=== PATIENT | male | born 1985 | race Caucasian/White ===

== ENCOUNTER 2018-10-14 11:35 | Inpatient (IN) | payer MEDICAID ==
[~2018-10-14] VITALS: Ht 175.3 cm; Wt 55.4 kg
[2018-10-14 11:45] VITALS: BP 144/88
--- NOTE | 2018-10-14 12:02 | NUR ---
ED Nurse Note: Pt LENKA from the street due to ETOH, reported that he has been drinking "Vodka x 1 couple of days straight". Pt appears confused at times, slurred speech but still able to answer questions from staffs. HR 130-140, ERMD aware. No active vomiting noted. other VSS. Will cont to monitor.
--- NOTE | 2018-10-14 12:02 | NUR ---
ED Nurse Note: Seizure precaution applied.
[2018-10-14] MEDS ORDERED: LORazepam Inj 2mg/ml 1ml IV ONE (12:15)
[2018-10-14] MEDS ORDERED: chlordiazePOXIDE 25mg Cap ORAL ONE ×2 (12:15→15:45)
[2018-10-14] MEDS ORDERED: Thiamine HCl 100 MG in D5W 55 ML IV ONE (12:15)
--- NOTE | 2018-10-14 12:27 | NUR ---
ED Nurse Note: Pt down to CT for imaging.
[2018-10-14 12:36] LABS: HEMATOCRIT 46.3 % (42.0-52.0); HEMOGLOBIN 15.5 G/DL (14.2-18.0); MEAN CORPUSCULAR VOLUME 91 FL (80-99); PLATELET COUNT 86 K/UL (150-450); RED BLOOD COUNT 5.08 M/UL (4.70-6.10); RED CELL DISTRIBUTION WIDTH 11.3 % (11.6-14.8); WHITE BLOOD COUNT 6.9 K/UL (4.8-10.8)
[2018-10-14 12:45] LABS: PHOSPHORUS 4.5 MG/DL (2.5-4.9)
--- NOTE | 2018-10-14 12:51 | Diagnostic Imaging Report ---
Indication: Shortness of breath Technique: One view of the chest Comparison: none Findings: Lungs and pleural spaces are clear. Heart size is normal Impression: No acute process
--- NOTE | 2018-10-14 12:51 | Diagnostic Imaging Report ---
Indications: Altered mental status Technique: Spiral acquisitions obtained through the brain. Angled axial and coronal 5 x 5 mm slices were reconstructed. Total dose length product 1523.79 mGycm. CTDI vol(s) 70.38 mGy. Dose reduction achieved using automated exposure control Comparison: None. Findings: No acute intracranial hemorrhage or edema, mass effect, nor midline shift. Normal ely-white differentiation. Normal-sized ventricles and extra axial CSF spaces. Visualized orbits and sinuses are unremarkable. The calvarium is intact. Impression: Negative The CT scanner at [facility] is accredited by the [employer] and the scans are performed using protocols designed to limit radiation exposure to as low as reasonably achievable to attain images of sufficient resolution adequate for diagnostic evaluation.
--- NOTE | 2018-10-14 12:59 | Emergency Room Report ---
History of Present Illness General Chief Complaint: Altered Level of Consciousness Source: Patient, EMS Present Illness HPI 33-year-old male past motor history of alcohol abuse presents with altered mental status secondary to drinking, patient states he drank a lot of alcohol last night, history is limited secondary to patient's alcohol intoxication. Unable to obtain a proper review of systems, patient attempts to get out of bed , is not answering questions appropriately, has slurred speech Allergies: Coded Allergies: PENICILLINS (Verified Allergy, Unknown, 10/14/18) Patient History Limited by: other - Currently intoxicated Past Medical History: see triage record Past Surgical History: unable to obtain Pertinent Family History: unable to obtain Reviewed Nursing Documentation: PMH: Agreed; PSxH: Agreed Nursing Documentation-PMH Past Medical History: No History, Except For History Of Psychiatric Problem: Yes - etoh abuse Review of Systems All Other Systems: limited - patient intoxicated Physical Exam Vital Signs Date Time Temp Pulse Resp B/P (MAP) Pulse Ox O2 Delivery O2 Flow Rate FiO2 10/14/18 11:28 98.8 130 20 155/95 (115) 99 Room Air Sp02 EP Interpretation: reviewed, normal General Appearance: well appearing, no apparent distress, alert, other - intoxicated Head: normocephalic, atraumatic Eyes: bilateral eye PERRL, bilateral eye EOMI ENT: uvula midline, moist mucus membranes Neck: supple, thyroid normal, supple/symm/no masses Respiratory: lungs clear, no respiratory distress, no retraction, no accessory muscle use Cardiovascular #1: normal peripheral pulses, regular rate, rhythm, no edema, no gallop, no murmur Gastrointestinal: non tender, soft, no guarding, no rebound Musculoskeletal: normal inspection Neurologic: alert, other - slurred speech, oriented to self Psychiatric: mood/affect normal Skin: no rash, warm/dry Medical Decision Making Diagnostic Impression: Primary Impression: Acute alcohol intoxication ER Course Patient acutely intoxicated, patient given Ativan and Librium, will observe patient until he rajeev. Patient given fluids, thiamine, will continue to observe patient, reevaluation at 2:49 PM, patient improving Laboratory Tests Test 10/14/18 12:20 10/14/18 12:55 White Blood Count 6.9 K/UL (4.8-10.8) Red Blood Count 5.08 M/UL (4.70-6.10) Hemoglobin 15.5 G/DL (14.2-18.0) Hematocrit 46.3 % (42.0-52.0) Mean Corpuscular Volume 91 FL (80-99) Mean Corpuscular Hemoglobin 30.5 PG (27.0-31.0) Mean Corpuscular Hemoglobin Concent 33.5 G/DL (32.0-36.0) Red Cell Distribution Width 11.3 % (11.6-14.8) L Platelet Count 86 K/UL (150-450) L Mean Platelet Volume 6.0 FL (6.5-10.1) L Neutrophils (%) (Auto) % (45.0-75.0) Lymphocytes (%) (Auto) % (20.0-45.0) Monocytes (%) (Auto) % (1.0-10.0) Eosinophils (%) (Auto) % (0.0-3.0) Basophils (%) (Auto) % (0.0-2.0) Differential Total Cells Counted 100 Neutrophils % (Manual) 83 % (45-75) H Lymphocytes % (Manual) 10 % (20-45) L Monocytes % (Manual) 6 % (1-10) Eosinophils % (Manual) 0 % (0-3) Basophils % (Manual) 1 % (0-2) Band Neutrophils 0 % (0-8) Platelet Estimate Decreased L Platelet Morphology Normal Red Blood Cell Morphology Normal Sodium Level 139 MMOL/L (136-145) Potassium Level 3.7 MMOL/L (3.5-5.1) Chloride Level 95 MMOL/L (98-107) L Carbon Dioxide Level 21 MMOL/L (21-32) Anion Gap 23 mmol/L (5-15) H Blood Urea Nitrogen 15 mg/dL (7-18) Creatinine 0.8 MG/DL (0.55-1.30) Estimate Glomerular Filtration Rate > 60 mL/min (>60) Glucose Level 176 MG/DL (74-106) H Calcium Level 9.0 MG/DL (8.5-10.1) Phosphorus Level 4.5 MG/DL (2.5-4.9) Magnesium Level 1.9 MG/DL (1.8-2.4) Total Bilirubin 1.5 MG/DL (0.2-1.0) H Direct Bilirubin 0.4 MG/DL (0.0-0.3) H Aspartate Amino Transferase (AST) 218 U/L (15-37) H Alanine Aminotransferase (ALT) 140 U/L (12-78) H Alkaline Phosphatase 116 U/L (46-116) Total Creatine Kinase 711 U/L (26-308) H Total Protein 8.3 G/DL (6.4-8.2) H Albumin 4.7 G/DL (3.4-5.0) Globulin 3.6 g/dL Albumin/Globulin Ratio 1.3 (1.0-2.7) Salicylates Level 1.3 ug/mL (2.8-20) L Acetaminophen Level < 2 MCG/ML (10-30) L Serum Alcohol 473 mg/dL Urine Color Pale yellow Urine Appearance Slightly cloudy Urine pH 6 (4.5-8.0) Urine Specific [place] 1.010 (1.005-1.035) Urine Protein 2+ (NEGATIVE) H Urine Glucose (UA) Negative (NEGATIVE) Urine Ketones 3+ (NEGATIVE) H Urine Blood 5+ (NEGATIVE) H Urine Nitrite Negative (NEGATIVE) Urine Bilirubin Negative (NEGATIVE) Urine Urobilinogen Normal MG/DL (0.0-1.0) Urine Leukocyte Esterase Negative (NEGATIVE) Urine RBC 5-10 /HPF (0 - 0) H Urine WBC 0-2 /HPF (0 - 0) Urine Squamous Epithelial Cells Few /LPF (NONE/OCC) Urine Bacteria Occasional /HPF (NONE) Urine Granular Casts 0-2 /LPF (NONE) H Urine Fine Granular Casts 0-2 /LPF (NONE) H Urine Opiates Screen Negative (NEGATIVE) Urine Barbiturates Screen Negative (NEGATIVE) Phencyclidine (PCP) Screen Negative (NEGATIVE) Urine Amphetamines Screen Negative (NEGATIVE) Urine Benzodiazepines Screen Negative (NEGATIVE) Urine Cocaine Screen Negative (NEGATIVE) Urine Marijuana (THC) Screen Negative (NEGATIVE) Chest X-Ray Diagnostic Results Chest X-Ray Diagnostic Results : Chest X-Ray Ordered: Yes # of Views/Limited/Complete: 1 View Indication: Other - altered mental status EP Interpretation: Yes Interpretation: no consolidation, no effusion, no pneumothorax, no acute cardiopulmonary disease Impression: No acute disease Electronically Signed by: Yonathan Hinojosa MD CT/MRI/US Diagnostic Results CT/MRI/US Diagnostic Results : Impression Procedure: CT Head no Contrast Indications: Altered mental status Technique: Spiral acquisitions obtained through the brain. Angled axial and coronal 5 x 5 mm slices were reconstructed. Total dose length product 1523.79 mGycm. CTDI vol(s) 70.38 mGy. Dose reduction achieved using automated exposure control Comparison: None. Findings: No acute intracranial hemorrhage or edema, mass effect, nor midline shift. Normal ely-white differentiation. Normal-sized ventricles and extra axial CSF spaces. Visualized orbits and sinuses are unremarkable. The calvarium is intact. Impression: Negative The CT scanner at [facility] is accredited by the [employer] and the scans are performed using protocols designed to limit radiation exposure to as low as reasonably achievable to attain images of sufficient resolution adequate for diagnostic evaluation. Dictated By: Best Harry MD Electronically Signed By: Best Harry MD Signed Date/Time 10/14/18 1247 CC: Yonathan Hinojosa M.D. Last Vital Signs Date Time Temp Pulse Resp B/P (MAP) Pulse Ox O2 Delivery O2 Flow Rate FiO2 10/14/18 11:46 133 20 Room Air 10/14/18 11:45 98.8 144/88 99 Condition: Improved Signed Out To: Dr. Owusu Referrals: NOT CHOSEN IPA/,REFERRING (PCP) Yonathan Hinojosa M.D. Oct 14, 2018 12:59
[2018-10-14 13:15] LABS: APPEARANCE,URINE SLIGHTLY CLOUDY; BILIRUBIN, URINE NEGATIVE (NEGATIVE); COLOR,URINE PALE YELLOW; GLUCOSE, URINE (UA) NEGATIVE (NEGATIVE); KETONES,URINE 3+ (NEGATIVE); LEUKOCYTE ESTERASE ,URINE NEGATIVE (NEGATIVE); NITRITE,URINE NEGATIVE (NEGATIVE); PH,URINE 6 (4.5-8.0); PROTEIN,URINE 2+ (NEGATIVE); UROBILINOGEN,URINE NORMAL MG/DL (0.0-1.0)
[2018-10-14 13:17] LABS: ANION GAP 23 mmol/L (5-15); BLOOD UREA NITROGEN 15 mg/dL (7-18); CARBON DIOXIDE 21 MMOL/L (21-32); CHLORIDE 95 MMOL/L (98-107); CREATININE 0.8 MG/DL (0.55-1.30); POTASSIUM 3.7 MMOL/L (3.5-5.1); SODIUM 139 MMOL/L (136-145)
[2018-10-14 13:27] LABS: ALANINE AMINOTRANSFERASE 140 U/L (12-78); ALBUMIN 4.7 G/DL (3.4-5.0); ALBUMIN/GLOBULIN RATIO 1.3 (1.0-2.7); ALKALINE PHOSPHATASE 116 U/L (46-116); ASPARTATE AMINO TRANSFERASE 218 U/L (15-37); BILIRUBIN,TOTAL 1.5 MG/DL (0.2-1.0); CREATINE KINASE 711 U/L (26-308)
[2018-10-14 13:29] LABS: BILIRUBIN,DIRECT 0.4 MG/DL (0.0-0.3)
[2018-10-14 14:51] VITALS: BP 147/90
--- NOTE | 2018-10-14 15:21 | NUR ---
ED Nurse Note: received report from RN Mindy and assumed care, pt sinus tach on cardic monitor, vss, resp even and unlabored on RA, noted mild tremors and contusion on BLE, skin intact, iv intact and patent. safety precaution and sz precaution in place.
--- NOTE | 2018-10-14 15:21 | NUR ---
HAND-OFF: Report given to ROLDAN Zelaya.
[2018-10-14 15:30] VITALS: BP 145/105
--- NOTE | 2018-10-14 15:35 | NUR ---
ED Nurse Note: pt cleaned and changed into gown, extra warm blanket provided for comfort. pt reports nausea and anxiety, ERMD notified regarding pt's condition. pt AA&ox4, gcs=15. will cont monitor.
[2018-10-14 16:30] VITALS: BP 138/98
--- NOTE | 2018-10-14 17:00 | NUR ---
ED Nurse Note: pt sleeping at this time, safety and sz precaution in place, NSR on security monitor, vss, resp even and unlabored, will cont monitor. iv intact.
--- NOTE | 2018-10-14 18:24 | NUR ---
ED Nurse Note: PER RECEIVING RN STATEMENT, CANNOT TAKE REPORT AT THIS TIME BECAUSE SHE'S DOING ASSIGNMENT CALL BACK IN 10 MIN, NO BED IN THE ROOM, NO SITTER AVAILABLE, CHARGE NURSE NOTIFIED.
[2018-10-14 18:30] VITALS: BP 140/90
--- NOTE | 2018-10-14 18:47 | NUR ---
ED Nurse Note: REPORT GIVEN TO ROLDAN HENDRIX, PER ROLDAN HENDRIX, NO SITTER AVAILABLE, SEND PT AT [facility].
--- NOTE | 2018-10-14 19:00 | History and Physical ---
History of Present Illness General Date patient seen: Oct 14, 2018 Reason for Hospitalization: Altered Level of Consciousness Present Illness HPI 33 year old male with PMh of ETOH abuse, presents with complaints of shaking, nausea, abdominal pain and unsteady gait for 1 days. States he binge drinks often, last drink was this morning prior to admission. Pt states abdominla pain is similiar to previous pancreatitis symptoms. States when he stops drinking alcohol he usually feels very anxious and starts shaking. Pt denies substance abuse, nausea, vomiting, chest pain, headaches, blurry vision, urinary complaints, fevers, chills, or SOB Allergies: Coded Allergies: PENICILLINS (Verified Allergy, Unknown, 10/14/18) Medication History Scheduled Abacavir/Dolutegravir/Lamivudi (Triumeq 600-50-300 mg Tablet), 1 EACH PO DAILY, (Reported) Lamotrigine (Lamictal), 25 MG PO DAILY, (Reported) Propranolol HCl (Propranolol HCl), 20 MG PO TID, (Reported) Miscellaneous Medications [trimeq], (Reported) Patient History Healthcare decision maker Resuscitation status Advanced Directive on File Review of Systems ROS Narrative General ROS:~no weight loss or fever Psychological ROS:~no depression or mood changes, no memory loss Ophthalmic ROS:~no visual changes or eye irritation ENT ROS:~no nasal congestion, hearing loss, dizziness Allergy and Immunology ROS:~no allergic symptoms or urticaria Hematological and Lymphatic ROS:~no swollen glands, unusual bleeding or bruising Endocrine ROS:~no polyuria, polydipsia, weight changes, temperature intolerance Respiratory ROS:~no cough, shortness of breath, or wheezing Cardiovascular ROS:~no chest pain or dyspnea on exertion Gastrointestinal ROS:~no abdominal pain, change in bowel habits, or black or bloody stools~c/o constipation~ Musculoskeletal ROS:~no myalgias or arthralgias Neurological ROS:~no TIA or stroke symptoms Dermatological ROS:~no new or changing skin lesions, rashes or pruritis Physical Exam Last 24 Hour Vital Signs Date Time Temp Pulse Resp B/P (MAP) Pulse Ox O2 Delivery O2 Flow Rate FiO2 10/14/18 18:38 81 18 Room Air 10/14/18 18:30 97.5 81 19 140/90 99 Room Air 10/14/18 16:30 98.2 89 19 138/98 99 Room Air 10/14/18 15:30 98.2 105 19 145/105 99 Room Air 10/14/18 14:51 98.8 91 19 147/90 99 Room Air 10/14/18 11:46 133 20 Room Air 10/14/18 11:45 98.8 133 20 144/88 99 Room Air 10/14/18 11:28 98.8 130 20 155/95 (115) 99 Room Air Laboratory Tests Test 10/14/18 12:20 10/14/18 12:55 White Blood Count 6.9 K/UL (4.8-10.8) Red Blood Count 5.08 M/UL (4.70-6.10) Hemoglobin 15.5 G/DL (14.2-18.0) Hematocrit 46.3 % (42.0-52.0) Mean Corpuscular Volume 91 FL (80-99) Mean Corpuscular Hemoglobin 30.5 PG (27.0-31.0) Mean Corpuscular Hemoglobin Concent 33.5 G/DL (32.0-36.0) Red Cell Distribution Width 11.3 % (11.6-14.8) L Platelet Count 86 K/UL (150-450) L Mean Platelet Volume 6.0 FL (6.5-10.1) L Neutrophils (%) (Auto) % (45.0-75.0) Lymphocytes (%) (Auto) % (20.0-45.0) Monocytes (%) (Auto) % (1.0-10.0) Eosinophils (%) (Auto) % (0.0-3.0) Basophils (%) (Auto) % (0.0-2.0) Differential Total Cells Counted 100 Neutrophils % (Manual) 83 % (45-75) H Lymphocytes % (Manual) 10 % (20-45) L Monocytes % (Manual) 6 % (1-10) Eosinophils % (Manual) 0 % (0-3) Basophils % (Manual) 1 % (0-2) Band Neutrophils 0 % (0-8) Platelet Estimate Decreased L Platelet Morphology Normal Red Blood Cell Morphology Normal Sodium Level 139 MMOL/L (136-145) Potassium Level 3.7 MMOL/L (3.5-5.1) Chloride Level 95 MMOL/L (98-107) L Carbon Dioxide Level 21 MMOL/L (21-32) Anion Gap 23 mmol/L (5-15) H Blood Urea Nitrogen 15 mg/dL (7-18) Creatinine 0.8 MG/DL (0.55-1.30) Estimat Glomerular Filtration Rate > 60 mL/min (>60) Glucose Level 176 MG/DL (74-106) H Calcium Level 9.0 MG/DL (8.5-10.1) Phosphorus Level 4.5 MG/DL (2.5-4.9) Magnesium Level 1.9 MG/DL (1.8-2.4) Total Bilirubin 1.5 MG/DL (0.2-1.0) H Direct Bilirubin 0.4 MG/DL (0.0-0.3) H Aspartate Amino Transf (AST/SGOT) 218 U/L (15-37) H Alanine Aminotransferase (ALT/SGPT) 140 U/L (12-78) H Alkaline Phosphatase 116 U/L (46-116) Total Creatine Kinase 711 U/L (26-308) H Total Protein 8.3 G/DL (6.4-8.2) H Albumin 4.7 G/DL (3.4-5.0) Globulin 3.6 g/dL Albumin/Globulin Ratio 1.3 (1.0-2.7) Salicylates Level 1.3 ug/mL (2.8-20) L Acetaminophen Level < 2 MCG/ML (10-30) L Serum Alcohol 473 mg/dL Urine Color Pale yellow Urine Appearance Slightly cloudy Urine pH 6 (4.5-8.0) Urine Specific [place] 1.010 (1.005-1.035) Urine Protein 2+ (NEGATIVE) H Urine Glucose (UA) Negative (NEGATIVE) Urine Ketones 3+ (NEGATIVE) H Urine Blood 5+ (NEGATIVE) H Urine Nitrite Negative (NEGATIVE) Urine Bilirubin Negative (NEGATIVE) Urine Urobilinogen Normal MG/DL (0.0-1.0) Urine Leukocyte Esterase Negative (NEGATIVE) Urine RBC 5-10 /HPF (0 - 0) H Urine WBC 0-2 /HPF (0 - 0) Urine Squamous Epithelial Cells Few /LPF (NONE/OCC) Urine Bacteria Occasional /HPF (NONE) Urine Granular Casts 0-2 /LPF (NONE) H Urine Fine Granular Casts 0-2 /LPF (NONE) H Urine Opiates Screen Negative (NEGATIVE) Urine Barbiturates Screen Negative (NEGATIVE) Phencyclidine (PCP) Screen Negative (NEGATIVE) Urine Amphetamines Screen Negative (NEGATIVE) Urine Benzodiazepines Screen Negative (NEGATIVE) Urine Cocaine Screen Negative (NEGATIVE) Urine Marijuana (THC) Screen Negative (NEGATIVE) Height (Feet): 5 Height (Inches): 9.00 Weight (Pounds): 130 Objective Narrative General appearance:~~alert, not cooperative, no distress, appears stated age Head:~~Normocephalic, without obvious abnormality, atraumatic Eyes:~~conjunctivae/corneas clear. PERRL, EOM's intact. Fundi benign Throat:~~Lips, mucosa, and tongue normal. Teeth and gums normal Neck:~~supple, symmetrical, trachea midline, no adenopathy, thyroid: not enlarged, symmetric, no tenderness/mass/nodules, no carotid bruit and no JVD Lungs:~~clear to auscultation bilaterally Heart:~~regular rate and rhythm, S1, S2 normal, no murmur, click, rub or gallop Abdomen:~~soft, non-tender. Bowel sounds normal. No masses, ~no organomegaly Extremities:~~extremities normal, atraumatic, no cyanosis or edema Pulses:~~2+ and symmetric Skin:~~Skin color, texture, turgor normal. No rashes or lesions Neurologic:~~Grossly normal Assessment/Plan Assessment/Plan: 33 year old male admitted to ETOH w/d and pancreatitis. #ETOh withdrawal -s/p banana bag -Cont mIVF with D5 1/2NS with KCL -CIWA protocol -Ativan 2mg IV PRN if CIMA >8 -NPO for now -monitor electrolytes -fall precautions #Acute pancreatitis -ctm -pain control -GI consulted -Surgery consulted -NPO for now d/t etoh w/d Code: Insurance Counselor of note may not reflect time of encounter Mariajose Lozano MD Oct 14, 2018 19:00
[2018-10-14] MEDS: LORazepam Inj 2mg/ml 1ml IV PRN (19:19)
[2018-10-14] MEDS ORDERED: trimeq (19:50)
[2018-10-14] MEDS ORDERED: INDERAL20 MG PO (19:50)
[2018-10-14] MEDS ORDERED: TRIUMEQ 600-501 EACH PO (19:50)
[2018-10-14] MEDS ORDERED: LAMICTAL25 M1 PO (19:50)
--- NOTE | 2018-10-14 19:50 | NUR ---
NURSE NOTES: Received report from Gricelda MONTILLA, and received pt. from Alida MONTILLA from ED via [place]. Pt. awake showing no signs of acute distress. Respiration even and non labored on room air. No sob noted. Fall precaution observed. Pt. is observed with unsteady gait, sitter at bedside. VS stable, box office agent on pt. showing SR. Oriented to room and unit. Seizure precaution observed, bed side padded, side rails up x2. Bed in lowest position, wheels locked and alarm on. Call light within reach. All needs attended and met. Will continue plan of care.
--- NOTE | 2018-10-14 19:55 | NUR ---
NURSE NOTES: Patient received with Carmen Henry from [facility] ED . Patient c/o of EtOh abuse and poss withdrawal . Patient oriented but restless . Patient vss, afebrile patient c/o of abdominal pain . pain rates 7 out of 10 . Patient . Patient controlled with pain medications and will be given on scheduled time . Patient angelica jasso hi with understanding . Patient no s/s of distress noted.. Left hand h/l g # 20 Patent and intact. seizure precautions ( no activity of seizures at this time ) side rails x2 padded. Patient personal belongings signed and given to patient . Safety/. fall Implemented . call light within reach . bed in low position at all timed . will continue to monitor. Addendum: 10/15/18 at 0157 by LIGIA MANRIQUEZ LVN Report received by Carmen Henry( 2 east telemetry ) from Tracy Henry From ED. Patient admitted c/o Etoh abuse . Room air . patient skin intact..call light within reach . bed in low position and bed alarm active . sitter 1:1 ae bedside
--- NOTE | 2018-10-14 19:55 | NUR ---
ED Nurse Note: PT TRANSFERRED TO TELE, ALL BELONGINGS SENT W/ PT W/ COMPLETED LIST, PT VSS, SINUS TACH ON OPERATOR SUPPLY, RECEIVING RN MERON INFORMED REGARDING ABOUT PT RECEIVING MED FOR ANXIETY AND NAUSEA, REPORT GIVEN REGARDING PT'S PAIN LEVEL. IV INTACT. NO CHANGES IN NEURO STATUS.
[2018-10-14 20:22] VITALS: BP 124/83
[2018-10-14] MEDS ORDERED: Heparin 5000 units/ml inj SUBQ SCH (21:00)
[2018-10-14] MEDS: Docusate 100mg cap ORAL SCH (21:02)
[2018-10-14] MEDS: HYDROmorphone 1mg/ml Carpuject IVP PRN (21:14)
--- NOTE | 2018-10-14 21:45 | NUR ---
NURSE NOTES:Patient c/o abdominal pain at 21;14 .PM Pain rates 7/10 . Dilaudid 1 mg IVP given by Dorcas Henry and reassessed wih good relief patientwas asleep.will continue to monitor.
--- NOTE | 2018-10-14 22:19 | Neurology Progress Note ---
Interim History Interim History ROS Limited/Unobtainable: No Interim History etoh intoxication, confused no seizures ct brain No acute intracranial hemorrhage or edema, mass effect, nor midline shift. Normal ely-white differentiation. Normal-sized ventricles and extra axial CSF spaces. Visualized orbits and sinuses are unremarkable. The calvarium is intact. sp ativan sp dilaudid no withdrawal signs Objective Physical Exam Last Vital Signs Date Time Temp Pulse Resp B/P (MAP) Pulse Ox O2 Delivery O2 Flow Rate FiO2 10/14/18 21:44 97.2 10/14/18 20:22 93 18 124/83 (97) 100 10/14/18 19:55 Room Air Laboratory Tests Test 10/14/18 12:20 10/14/18 12:55 White Blood Count 6.9 K/UL (4.8-10.8) Red Blood Count 5.08 M/UL (4.70-6.10) Hemoglobin 15.5 G/DL (14.2-18.0) Hematocrit 46.3 % (42.0-52.0) Mean Corpuscular Volume 91 FL (80-99) Mean Corpuscular Hemoglobin 30.5 PG (27.0-31.0) Mean Corpuscular Hemoglobin Concent 33.5 G/DL (32.0-36.0) Red Cell Distribution Width 11.3 % (11.6-14.8) L Platelet Count 86 K/UL (150-450) L Mean Platelet Volume 6.0 FL (6.5-10.1) L Neutrophils (%) (Auto) % (45.0-75.0) Lymphocytes (%) (Auto) % (20.0-45.0) Monocytes (%) (Auto) % (1.0-10.0) Eosinophils (%) (Auto) % (0.0-3.0) Basophils (%) (Auto) % (0.0-2.0) Differential Total Cells Counted 100 Neutrophils % (Manual) 83 % (45-75) H Lymphocytes % (Manual) 10 % (20-45) L Monocytes % (Manual) 6 % (1-10) Eosinophils % (Manual) 0 % (0-3) Basophils % (Manual) 1 % (0-2) Band Neutrophils 0 % (0-8) Platelet Estimate Decreased L Platelet Morphology Normal Red Blood Cell Morphology Normal Sodium Level 139 MMOL/L (136-145) Potassium Level 3.7 MMOL/L (3.5-5.1) Chloride Level 95 MMOL/L (98-107) L Carbon Dioxide Level 21 MMOL/L (21-32) Anion Gap 23 mmol/L (5-15) H Blood Urea Nitrogen 15 mg/dL (7-18) Creatinine 0.8 MG/DL (0.55-1.30) Estimat Glomerular Filtration Rate > 60 mL/min (>60) Glucose Level 176 MG/DL (74-106) H Calcium Level 9.0 MG/DL (8.5-10.1) Phosphorus Level 4.5 MG/DL (2.5-4.9) Magnesium Level 1.9 MG/DL (1.8-2.4) Total Bilirubin 1.5 MG/DL (0.2-1.0) H Direct Bilirubin 0.4 MG/DL (0.0-0.3) H Aspartate Amino Transf (AST/SGOT) 218 U/L (15-37) H Alanine Aminotransferase (ALT/SGPT) 140 U/L (12-78) H Alkaline Phosphatase 116 U/L (46-116) Total Creatine Kinase 711 U/L (26-308) H Total Protein 8.3 G/DL (6.4-8.2) H Albumin 4.7 G/DL (3.4-5.0) Globulin 3.6 g/dL Albumin/Globulin Ratio 1.3 (1.0-2.7) Salicylates Level 1.3 ug/mL (2.8-20) L Acetaminophen Level < 2 MCG/ML (10-30) L Serum Alcohol 473 mg/dL Urine Color Pale yellow Urine Appearance Slightly cloudy Urine pH 6 (4.5-8.0) Urine Specific [place] 1.010 (1.005-1.035) Urine Protein 2+ (NEGATIVE) H Urine Glucose (UA) Negative (NEGATIVE) Urine Ketones 3+ (NEGATIVE) H Urine Blood 5+ (NEGATIVE) H Urine Nitrite Negative (NEGATIVE) Urine Bilirubin Negative (NEGATIVE) Urine Urobilinogen Normal MG/DL (0.0-1.0) Urine Leukocyte Esterase Negative (NEGATIVE) Urine RBC 5-10 /HPF (0 - 0) H Urine WBC 0-2 /HPF (0 - 0) Urine Squamous Epithelial Cells Few /LPF (NONE/OCC) Urine Bacteria Occasional /HPF (NONE) Urine Granular Casts 0-2 /LPF (NONE) H Urine Fine Granular Casts 0-2 /LPF (NONE) H Urine Opiates Screen Negative (NEGATIVE) Urine Barbiturates Screen Negative (NEGATIVE) Phencyclidine (PCP) Screen Negative (NEGATIVE) Urine Amphetamines Screen Negative (NEGATIVE) Urine Benzodiazepines Screen Negative (NEGATIVE) Urine Cocaine Screen Negative (NEGATIVE) Urine Marijuana (THC) Screen Negative (NEGATIVE) Head: normocophalic Neck: no rigidity EENT: benign Neurologic Exam Mental Status: other Objective somnolent, wakes up, non focal withdraws all 4 Impression/Recommendations Problems: (1) Alcohol withdrawal (2) Acute alcohol intoxication Diagnostic Impression acute toxic encephalopathy ct brain wo hemorrhage monitor for withdrawal Yonathan Agrawal MD Oct 14, 2018 22:19
[2018-10-15] VITALS (7 sets, daily range): BP systolic 112–133; BP diastolic 63–77
[2018-10-15] MEDS: oxyCODONE 5mg IR tab ORAL PRN (02:21)
[2018-10-15] MEDS: LORazepam Inj 2mg/ml 1ml IV PRN ×4 (02:21→21:56)
[2018-10-15] MEDS: HYDROmorphone 1mg/ml Carpuject IVP PRN (06:25)
[2018-10-15 06:57] LABS: HEMATOCRIT 35.6 % (42.0-52.0); HEMOGLOBIN 12.1 G/DL (14.2-18.0); MEAN CORPUSCULAR VOLUME 91 FL (80-99); PLATELET COUNT 48 K/UL (150-450); RED BLOOD COUNT 3.91 M/UL (4.70-6.10); RED CELL DISTRIBUTION WIDTH 11.5 % (11.6-14.8); WHITE BLOOD COUNT 5.3 K/UL (4.8-10.8)
--- NOTE | 2018-10-15 07:08 | NUR ---
HAND-OFF: Report given to Janine EMANUEL 1:1 Sitter patient 2 rings, necklace with pendant yellow tonr patient wearing , i phone 10 , no store operations associate patient wallet with 2 credit card $5.00 and clothes at bedside . patient in stable condition .
[2018-10-15 07:27] LABS: CREATINE KINASE 443 U/L (26-308)
--- NOTE | 2018-10-15 07:29 | NUR ---
HAND-OFF: Report given to ROLDAN Briceno.
--- NOTE | 2018-10-15 07:30 | NUR ---
NURSE NOTES: Received report from ROLDAN Wyatt. The patient is sleeping on the bed without acute distress or shortness of breath. The patient's bed in the lowest position, call light in reach, and fall, aspiration, and seizure precaution reinforced. Intact and patent IV noted. Will continue plan of care.
[2018-10-15 07:38] LABS: ALANINE AMINOTRANSFERASE 110 U/L (12-78); ALBUMIN 4.2 G/DL (3.4-5.0); ALBUMIN/GLOBULIN RATIO 1.7 (1.0-2.7); ALKALINE PHOSPHATASE 84 U/L (46-116); ANION GAP 10 mmol/L (5-15); ASPARTATE AMINO TRANSFERASE 193 U/L (15-37); BILIRUBIN,TOTAL 1.3 MG/DL (0.2-1.0); BLOOD UREA NITROGEN 9 mg/dL (7-18); CALCIUM 8.2 MG/DL (8.5-10.1); CARBON DIOXIDE 29 MMOL/L (21-32); CHLORIDE 101 MMOL/L (98-107); CREATININE 0.7 MG/DL (0.55-1.30); POTASSIUM 3.4 MMOL/L (3.5-5.1); SODIUM 140 MMOL/L (136-145)
[2018-10-15 07:41] LABS: BILIRUBIN,DIRECT 0.3 MG/DL (0.0-0.3)
--- NOTE | 2018-10-15 07:56 | NUR ---
NURSE NOTES: Notified Dr. Lozano regarding body tremor and anxiety even after getting zofran, ativan, and hydromorphone around [address] Lozano, Atival 2mg IV now and change the dosing schedule into Q3hr.
--- NOTE | 2018-10-15 07:57 | NUR ---
NURSE NOTES: Notified Dr. Lozano regarding potassium level of 3.4 and platelet of 48. KCL 40mEq PO once order given and carried out. In terms of platelet, no new order but monitoring. Will monitor the patient closely.
[2018-10-15] MEDS ORDERED: LORazepam Inj 2mg/ml 1ml IV SCH (08:00)
[2018-10-15] MEDS: Docusate 100mg cap ORAL SCH ×2 (08:28→21:49)
--- NOTE | 2018-10-15 10:27 | NUR ---
NURSE NOTES: Notified Dr. Lozano regarding elevated of AST and ALT level. Will carry out the order as soon as receives it and will continue plan of care.
--- NOTE | 2018-10-15 10:30 | NUR ---
Social Service Note Patient sleeping at this time. Will assess once awake. Will follow up.
--- NOTE | 2018-10-15 10:57 | GI Initial Consult Note ---
History of Present Illness General Date patient seen: Oct 15, 2018 Time patient seen: 10:47 Reason for Hospitalization: Altered Level of Consciousness Referring physician: JYOTI, Reason for Consultation: Alcoholic withdrawal Present Illness HPI 33-year-old male past motor history of alcohol abuse presents with altered mental status secondary to drinking, patient states he drank a lot of alcohol last night, history is limited secondary to patient's alcohol intoxication. Unable to obtain a proper review of systems, patient attempts to get out of bed , is not answering questions appropriately, has slurred speech GI consulted for alcoholic pancreatitis. Patient seen, awake alert no apparent distress. Unable to obtain significant history. Patient admits to having binge drink a lot of alcohol last night. Patient presents with alcohol serum level of 473. Abdominal pelvic CT was negative. Patient states he has a history of colonoscopy with hemorrhoidectomy back in March of last year. Home Meds Reported Medications Lamotrigine (LAMICTAL) 25 Mg Tb.chw.dsp, 25 MG PO DAILY, TAB 10/14/18 Propranolol HCl (Propranolol HCl) 20 Mg Tablet, 20 MG PO TID, TAB 10/14/18 Abacavir/Dolutegravir/Lamivudi (Triumeq 600-50-300 mg Tablet) 1 Each Tablet, 1 EACH PO DAILY, TAB 10/14/18 [trimeq] No Conflict Check 10/14/18 Med list reviewed/reconciled: Yes Allergies: Coded Allergies: PENICILLINS (Verified Allergy, Unknown, 10/14/18) Patient History Limited by: medical condition History Provided By: Patient PMH Narrative Limited by: other - Currently intoxicated Past Medical History: see triage record Past Surgical History: unable to obtain Pertinent Family History: unable to obtain Reviewed Nursing Documentation: PMH: Agreed; PSxH: Agreed Nursing Documentation-PM Past Medical History: No History, Except For History Of Psychiatric Problem: Yes - etoh abuse Social History: Reports: alcohol use Review of Systems All Other Systems: negative except mentioned in HPI Physical Exam Vital Signs Date Time Temp Pulse Resp B/P (MAP) Pulse Ox O2 Delivery O2 Flow Rate FiO2 10/14/18 11:28 98.8 130 20 155/95 (115) 99 Room Air Sp02 EP Interpretation: reviewed, normal Labs Laboratory Tests Test 10/14/18 12:20 10/14/18 12:55 10/15/18 06:19 White Blood Count 6.9 K/UL (4.8-10.8) 5.3 K/UL (4.8-10.8) Red Blood Count 5.08 M/UL (4.70-6.10) 3.91 M/UL (4.70-6.10) L Hemoglobin 15.5 G/DL (14.2-18.0) 12.1 G/DL (14.2-18.0) L Hematocrit 46.3 % (42.0-52.0) 35.6 % (42.0-52.0) L Mean Corpuscular Volume 91 FL (80-99) 91 FL (80-99) Mean Corpuscular Hemoglobin 30.5 PG (27.0-31.0) 30.9 PG (27.0-31.0) Mean Corpuscular Hemoglobin Concent 33.5 G/DL (32.0-36.0) 33.9 G/DL (32.0-36.0) Red Cell Distribution Width 11.3 % (11.6-14.8) L 11.5 % (11.6-14.8) L Platelet Count 86 K/UL (150-450) L 48 K/UL (150-450) L Mean Platelet Volume 6.0 FL (6.5-10.1) L 5.5 FL (6.5-10.1) L Neutrophils (%) (Auto) % (45.0-75.0) % (45.0-75.0) Lymphocytes (%) (Auto) % (20.0-45.0) % (20.0-45.0) Monocytes (%) (Auto) % (1.0-10.0) % (1.0-10.0) Eosinophils (%) (Auto) % (0.0-3.0) % (0.0-3.0) Basophils (%) (Auto) % (0.0-2.0) % (0.0-2.0) Differential Total Cells Counted 100 100 Neutrophils % (Manual) 83 % (45-75) H 64 % (45-75) Lymphocytes % (Manual) 10 % (20-45) L 29 % (20-45) Monocytes % (Manual) 6 % (1-10) 5 % (1-10) Eosinophils % (Manual) 0 % (0-3) 0 % (0-3) Basophils % (Manual) 1 % (0-2) 2 % (0-2) Band Neutrophils 0 % (0-8) 0 % (0-8) Platelet Estimate Decreased L Decreased L Platelet Morphology Normal Normal Red Blood Cell Morphology Normal Normal Sodium Level 139 MMOL/L (136-145) 140 MMOL/L (136-145) Potassium Level 3.7 MMOL/L (3.5-5.1) 3.4 MMOL/L (3.5-5.1) L Chloride Level 95 MMOL/L (98-107) L 101 MMOL/L (98-107) Carbon Dioxide Level 21 MMOL/L (21-32) 29 MMOL/L (21-32) Anion Gap 23 mmol/L (5-15) H 10 mmol/L (5-15) Blood Urea Nitrogen 15 mg/dL (7-18) 9 mg/dL (7-18) Creatinine 0.8 MG/DL (0.55-1.30) 0.7 MG/DL (0.55-1.30) Estimat Glomerular Filtration Rate > 60 mL/min (>60) > 60 mL/min (>60) Glucose Level 176 MG/DL (74-106) H 102 MG/DL (74-106) Calcium Level 9.0 MG/DL (8.5-10.1) 8.2 MG/DL (8.5-10.1) L Phosphorus Level 4.5 MG/DL (2.5-4.9) Magnesium Level 1.9 MG/DL (1.8-2.4) Total Bilirubin 1.5 MG/DL (0.2-1.0) H 1.3 MG/DL (0.2-1.0) H Direct Bilirubin 0.4 MG/DL (0.0-0.3) H 0.3 MG/DL (0.0-0.3) Aspartate Amino Transf (AST/SGOT) 218 U/L (15-37) H 193 U/L (15-37) H Alanine Aminotransferase (ALT/SGPT) 140 U/L (12-78) H 110 U/L (12-78) H Alkaline Phosphatase 116 U/L (46-116) 84 U/L (46-116) Total Creatine Kinase 711 U/L (26-308) H 443 U/L (26-308) H Total Protein 8.3 G/DL (6.4-8.2) H 6.6 G/DL (6.4-8.2) Albumin 4.7 G/DL (3.4-5.0) 4.2 G/DL (3.4-5.0) Globulin 3.6 g/dL 2.4 g/dL Albumin/Globulin Ratio 1.3 (1.0-2.7) 1.7 (1.0-2.7) Salicylates Level 1.3 ug/mL (2.8-20) L Acetaminophen Level < 2 MCG/ML (10-30) L Serum Alcohol 473 mg/dL Urine Color Pale yellow Urine Appearance Slightly cloudy Urine pH 6 (4.5-8.0) Urine Specific [place] 1.010 (1.005-1.035) Urine Protein 2+ (NEGATIVE) H Urine Glucose (UA) Negative (NEGATIVE) Urine Ketones 3+ (NEGATIVE) H Urine Blood 5+ (NEGATIVE) H Urine Nitrite Negative (NEGATIVE) Urine Bilirubin Negative (NEGATIVE) Urine Urobilinogen Normal MG/DL (0.0-1.0) Urine Leukocyte Esterase Negative (NEGATIVE) Urine RBC 5-10 /HPF (0 - 0) H Urine WBC 0-2 /HPF (0 - 0) Urine Squamous Epithelial Cells Few /LPF (NONE/OCC) Urine Bacteria Occasional /HPF (NONE) Urine Granular Casts 0-2 /LPF (NONE) H Urine Fine Granular Casts 0-2 /LPF (NONE) H Urine Opiates Screen Negative (NEGATIVE) Urine Barbiturates Screen Negative (NEGATIVE) Phencyclidine (PCP) Screen Negative (NEGATIVE) Urine Amphetamines Screen Negative (NEGATIVE) Urine Benzodiazepines Screen Negative (NEGATIVE) Urine Cocaine Screen Negative (NEGATIVE) Urine Marijuana (THC) Screen Negative (NEGATIVE) General Appearance: well appearing, no apparent distress, alert Head: normocephalic EENT: PERRL/EOMI, normal ENT inspection Neck: supple Respiratory: normal breath sounds, no respiratory distress Cardiovascular: normal rate Gastrointestinal: normal inspection, non tender, soft, normal bowel sounds, non -distended Rectal: deferred Genitourinary: deferred Musculoskeletal: normal inspection, back normal Neurologic: normal inspection, alert, oriented x3, responsive Psychiatric: normal inspection, judgement/insight normal, memory normal Skin: normal inspection, normal color, no rash, warm/dry, palpation normal, well hydrated Lymphatic: normal inspection, no adenopathy Current Medications Current Medications Medications (Trade) Dose Ordered Sig/Lala Route PRN Reason Start Time Stop Time Status Last Admin Dose Admin Acetaminophen (Tylenol) 650 mg Q4H PRN ORAL Mild Pain (Pain Scale 1-3) 10/14/18 19:00 11/13/18 18:59 Bisacodyl (Dulcolax) 10 mg HSPRN PRN RECTAL Constipation 10/14/18 19:00 11/13/18 18:59 Dextrose (Dextrose 50%) 25 ml Q30M PRN IV Hypoglycemia 10/14/18 19:00 11/13/18 18:59 Dextrose (Dextrose 50%) 50 ml Q30M PRN IV Hypoglycemia 10/14/18 19:00 11/13/18 18:59 Dextrose/ Electrolytes 1,000 ml @ 75 mls/hr [id number] IV 10/14/18 21:00 11/13/18 20:59 10/15/18 09:21 Diphenhydramine HCl (Benadryl) 25 mg Q6H PRN ORAL Itching/Pruritis 10/14/18 19:00 11/13/18 18:59 Docusate Sodium (Colace) 100 mg EVERY 12 HOURS ORAL 10/14/18 21:00 11/13/18 20:59 10/15/18 08:28 Famotidine (Pepcid) 40 mg DAILY ORAL 10/15/18 09:00 11/14/18 08:59 10/15/18 08:28 Folic Acid 1 mg/ Magnesium Sulfate 2000 mg/ Multivitamins 10 ml/Sodium Chloride 1,014.2 ml @ 125 mls/ hr Q24H IV 10/15/18 11:00 11/14/18 10:59 Hydromorphone HCl (Dilaudid) 0.5 mg Q6H PRN IVP moderate pain 10/14/18 21:15 10/21/18 21:14 Hydromorphone HCl (Dilaudid) 1 mg Q6H PRN IVP SEVERE PAIN 10/14/18 21:15 10/21/18 21:14 10/15/18 06:25 Lorazepam (Ativan 2mg/ml 1ml) 2 mg Q3H PRN IV ALCOHOL WITHDRAWAL 10/15/18 08:00 10/22/18 07:59 Ondansetron HCl (Zofran) 4 mg Q6H PRN IVP Nausea & Vomiting 10/14/18 19:00 11/13/18 18:59 10/15/18 06:25 Oxycodone HCl (Roxicodone) 5 mg Q4H PRN ORAL Breakthrough Pain 10/14/18 19:00 10/21/18 18:59 10/15/18 02:21 Thiamine HCl 100 mg/Dextrose 56 ml @ 112 mls/hr Q24H IVPB 10/15/18 11:00 11/14/18 10:59 GI: Plan Problems: (1) Alcohol withdrawal (2) Acute alcohol intoxication Plan Clear liquid diet plus IV banana bag Ativan as needed pain mgmt check lipase levels zofran prn H2B follow labs, trend LFTs Discussed with Dr. Rodgers. Thank you for this patient referral, we will follow. The patient was seen and examined at bedside and all new and available data was reviewed in the patients chart. I agree with the above findings, impression and plan. (Patient seen earlier today. Signature stamp does not reflect patient encounter time.). - MD Lucille Alegria,[facility] ENER[employer] ATTORNEY Oct 15, 2018 10:57
[2018-10-15] MEDS: Folic Acid 1 MG, Magnesium Sulfate 2,000 MG, Multivitamin - 12 Injection 10 ML in Sodiu... IV SCH (11:09)
--- NOTE | 2018-10-15 11:10 | NUR ---
RD ASSESSMENT & RECOMMENDATIONS SEE CARE ACTIVITY FOR COMPLETE ASSESSMENT DAILY ESTIMATED NEEDS: Needs based on Underweight/ 55kg 30-35 kcals/kg 3031-1796 total kcals 1-1.5 g protein/kg 55-82 g total protein 25-30 mL/kg 4779-6623 total fluid mLs NUTRITION DIAGNOSIS: *Underweight status R/T alcohol abuse? 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 * Altered nutrition related lab values R/T liver dysfunction as evidenced by elev T bili + LFTs. CURRENT DIET:CLD PO DIET RECOMMENDATIONS: Advance diet per MD -> Low Na + Snacks BID ADDITIONAL RECOMMENDATIONS: * Standing wt as able for accurate CBW * Monitor for diet advancement and tolerance: alcohol withdrawal, + nausea * Monitor lytes, replete as needed (K low) * Continue banana bag
[2018-10-15] MEDS: Thiamine 100mg in D5W 55ml IVPB SCH (11:26)
--- NOTE | 2018-10-15 12:00 | NUR ---
NURSE NOTES: Received order of Librium 50mg 1tab PO Q6hr scheduled and tomorrom am lab of lipase, cmp, cbc, lipid, and ck level. carried out the order. Also, checking sugar for AC+HS per Dr. Lozano's order.
[2018-10-15] MEDS: chlordiazePOXIDE 25mg Cap ORAL SCH ×2 (12:29→17:31)
--- NOTE | 2018-10-15 13:33 | Consultation ---
History of Present Illness General Date patient seen: Oct 15, 2018 Reason for Hospitalization: Altered Level of Consciousness Present Illness HPI This is a very unfortunate 33-year-old male with heavy EtOH dependency that presented to [facility] for care evaluation. Patient states that he has been drinking heavily and was feeling unwell and altered gait was brought in for evaluation. Patient states that he drinks heavily and binges fairly often. States that when he is not binging he goes into withdrawal and become shaky and unsteady. States last drink was this morning. Has intermittent nausea and currently no emesis. Noted to have pancreatitis and abnormal lipase upon admission. Patient complaining of abdominal pain. Surgery called to evaluate for abdominal pain. Patient seen, patient evaluated , chart reviewed. Patient is fairly pleasant at this time and tries to provide much history as he can but is a poor historian overall. During examination patient is shaky and in withdrawal Allergies: Coded Allergies: PENICILLINS (Verified Allergy, Unknown, 10/14/18) Medication History Scheduled Abacavir/Dolutegravir/Lamivudi (Triumeq 600-50-300 mg Tablet), 1 EACH PO DAILY, (Reported) Lamotrigine (Lamictal), 25 MG PO DAILY, (Reported) Propranolol HCl (Propranolol HCl), 20 MG PO TID, (Reported) Miscellaneous Medications [trimeq], (Reported) Patient History History Provided By: Patient, Medical Record, PMD Healthcare decision maker N Resuscitation status Full Code Advanced Directive on File No Past Medical/Surgical History Past Medical/Surgical History: (1) Alcohol withdrawal (2) Acute alcohol intoxication (3) Abdominal pain (4) Pancreatitis Review of Systems Review of Symptoms General ROS: no weight loss or fever Psychological ROS: no depression or mood changes, no memory loss Ophthalmic ROS: no visual changes or eye irritation ENT ROS: no nasal congestion, hearing loss, dizziness Allergy and Immunology ROS: no allergic symptoms or urticaria Hematological and Lymphatic ROS: no swollen glands, unusual bleeding or bruising Endocrine ROS: no polyuria, polydipsia, weight changes, temperature intolerance Respiratory ROS: no cough, shortness of breath, or wheezing Cardiovascular ROS: no chest pain or dyspnea on exertion Gastrointestinal ROS: abdominal pain, no bright red blood in stool. Musculoskeletal ROS: no myalgias or arthralgias Neurological ROS: no TIA or stroke symptoms Dermatological ROS: no new or changing skin lesions, rashes or pruritis Physical Exam Physical Exam General appearance: alert, cooperative, no distress, appears stated age Head: Normocephalic, without obvious abnormality, atraumatic Eyes: conjunctivae/corneas clear. PERRL, EOM's intact. Fundi benign Throat: Lips, mucosa, and tongue normal. Teeth and gums normal Neck: supple, symmetrical, trachea midline, no adenopathy, thyroid: not enlarged, symmetric, no tenderness/mass/nodules, no carotid bruit and no JVD Lungs: clear to auscultation bilaterally Heart: regular rate and rhythm, S1, S2 normal, no murmur, click, rub or gallop Abdomen: soft, non-tender. Bowel sounds normal. No masses, no organomegaly Extremities: extremities normal, atraumatic, no cyanosis or edema Pulses: 2+ and symmetric Skin: Skin color, texture, turgor normal. No rashes or lesions Neurologic: Grossly normal Last 24 Hour Vital Signs Date Time Temp Pulse Resp B/P (MAP) Pulse Ox O2 Delivery O2 Flow Rate FiO2 10/15/18 12:00 98.1 93 18 112/63 (79) 95 10/15/18 09:00 Room Air 10/15/18 08:00 122 10/15/18 08:00 98.1 91 18 127/72 (90) 98 10/15/18 06:55 98.0 10/15/18 04:00 98.0 110 18 130/77 (94) 98 10/15/18 04:00 101 10/15/18 00:00 108 10/15/18 00:00 98.2 108 18 114/66 (82) 99 10/14/18 21:00 Room Air 10/14/18 20:30 Room Air 10/14/18 20:25 93 10/14/18 20:22 97.2 93 18 124/83 (97) 100 10/14/18 20:00 87 10/14/18 19:55 98.4 111 18 156/98 100 Room Air 10/14/18 18:38 81 18 Room Air 10/14/18 18:30 97.5 81 19 140/90 99 Room Air 10/14/18 16:30 98.2 89 19 138/98 99 Room Air 10/14/18 15:30 98.2 105 19 145/105 99 Room Air 10/14/18 14:51 98.8 91 19 147/90 99 Room Air Intake and Output 10/14/18 10/15/18 19:00 07:00 Intake Total 2056 ml 1015 ml Output Total 1650 ml Balance 2056 ml -635 ml Intake IV Total 2056 ml 1015 ml Output Urine Total 1650 ml # Voids 5 3 Laboratory Tests Test 10/15/18 06:19 White Blood Count 5.3 K/UL (4.8-10.8) Red Blood Count 3.91 M/UL (4.70-6.10) L Hemoglobin 12.1 G/DL (14.2-18.0) L Hematocrit 35.6 % (42.0-52.0) L Mean Corpuscular Volume 91 FL (80-99) Mean Corpuscular Hemoglobin 30.9 PG (27.0-31.0) Mean Corpuscular Hemoglobin Concent 33.9 G/DL (32.0-36.0) Red Cell Distribution Width 11.5 % (11.6-14.8) L Platelet Count 48 K/UL (150-450) L Mean Platelet Volume 5.5 FL (6.5-10.1) L Neutrophils (%) (Auto) % (45.0-75.0) Lymphocytes (%) (Auto) % (20.0-45.0) Monocytes (%) (Auto) % (1.0-10.0) Eosinophils (%) (Auto) % (0.0-3.0) Basophils (%) (Auto) % (0.0-2.0) Differential Total Cells Counted 100 Neutrophils % (Manual) 64 % (45-75) Lymphocytes % (Manual) 29 % (20-45) Monocytes % (Manual) 5 % (1-10) Eosinophils % (Manual) 0 % (0-3) Basophils % (Manual) 2 % (0-2) Band Neutrophils 0 % (0-8) Platelet Estimate Decreased L Platelet Morphology Normal Red Blood Cell Morphology Normal Sodium Level 140 MMOL/L (136-145) Potassium Level 3.4 MMOL/L (3.5-5.1) L Chloride Level 101 MMOL/L (98-107) Carbon Dioxide Level 29 MMOL/L (21-32) Anion Gap 10 mmol/L (5-15) Blood Urea Nitrogen 9 mg/dL (7-18) Creatinine 0.7 MG/DL (0.55-1.30) Estimat Glomerular Filtration Rate > 60 mL/min (>60) Glucose Level 102 MG/DL (74-106) Calcium Level 8.2 MG/DL (8.5-10.1) L Total Bilirubin 1.3 MG/DL (0.2-1.0) H Direct Bilirubin 0.3 MG/DL (0.0-0.3) Aspartate Amino Transf (AST/SGOT) 193 U/L (15-37) H Alanine Aminotransferase (ALT/SGPT) 110 U/L (12-78) H Alkaline Phosphatase 84 U/L (46-116) Total Creatine Kinase 443 U/L (26-308) H Total Protein 6.6 G/DL (6.4-8.2) Albumin 4.2 G/DL (3.4-5.0) Globulin 2.4 g/dL Albumin/Globulin Ratio 1.7 (1.0-2.7) Lipase 775 U/L (73-393) H Height (Feet): 5 Height (Inches): 9.00 Weight (Pounds): 122 Medications Current Medications Medications (Trade) Dose Ordered Sig/Lala Route PRN Reason Start Time Stop Time Status Last Admin Dose Admin Acetaminophen (Tylenol) 650 mg Q4H PRN ORAL Mild Pain (Pain Scale 1-3) 10/14/18 19:00 11/13/18 18:59 Bisacodyl (Dulcolax) 10 mg HSPRN PRN RECTAL Constipation 10/14/18 19:00 11/13/18 18:59 Chlordiazepoxide (Librium) 50 mg Q6HR ORAL 10/15/18 12:00 10/22/18 11:59 10/15/18 12:29 Dextrose (Dextrose 50%) 25 ml Q30M PRN IV Hypoglycemia 10/14/18 19:00 11/13/18 18:59 Dextrose (Dextrose 50%) 50 ml Q30M PRN IV Hypoglycemia 10/14/18 19:00 11/13/18 18:59 Dextrose/ Electrolytes 1,000 ml @ 75 mls/hr [id number] IV 10/14/18 21:00 11/13/18 20:59 10/15/18 09:21 Diphenhydramine HCl (Benadryl) 25 mg Q6H PRN ORAL Itching/Pruritis 10/14/18 19:00 11/13/18 18:59 Docusate Sodium (Colace) 100 mg EVERY 12 HOURS ORAL 10/14/18 21:00 11/13/18 20:59 10/15/18 08:28 Famotidine (Pepcid) 40 mg DAILY ORAL 10/15/18 09:00 11/14/18 08:59 10/15/18 08:28 Folic Acid 1 mg/ Magnesium Sulfate 2000 mg/ Multivitamins 10 ml/Sodium Chloride 1,014.2 ml @ 125 mls/ hr Q24H IV 10/15/18 11:00 11/14/18 10:59 10/15/18 11:09 Hydromorphone HCl (Dilaudid) 0.5 mg Q6H PRN IVP moderate pain 10/14/18 21:15 10/21/18 21:14 Hydromorphone HCl (Dilaudid) 1 mg Q6H PRN IVP SEVERE PAIN 10/14/18 21:15 10/21/18 21:14 10/15/18 06:25 Lorazepam (Ativan 2mg/ml 1ml) 2 mg Q3H PRN IV ALCOHOL WITHDRAWAL 10/15/18 08:00 10/22/18 07:59 Ondansetron HCl (Zofran) 4 mg Q6H PRN IVP Nausea & Vomiting 10/14/18 19:00 11/13/18 18:59 10/15/18 06:25 Oxycodone HCl (Roxicodone) 5 mg Q4H PRN ORAL Breakthrough Pain 10/14/18 19:00 10/21/18 18:59 10/15/18 02:21 Thiamine HCl 100 mg/Dextrose 56 ml @ 112 mls/hr Q24H IVPB 10/15/18 11:00 11/14/18 10:59 10/15/18 11:26 Assessment/Plan Problem List: (1) Alcohol withdrawal ICD Codes: F10.239 - Alcohol dependence with withdrawal, unspecified SNOMED: 962746684 (2) Acute alcohol intoxication ICD Codes: F10.929 - Alcohol use, unspecified with intoxication, unspecified SNOMED: 20004341, 8493499 (3) Abdominal pain Assessment & Plan: 33-year-old male with cramping abdominal pain generalized intermittent and noted most when he is not drinking. Patient currently in withdrawal and noted to have pancreatitis. Labs improving. Patient under current treatment for withdrawal. Likely etiology of pancreatitis is EtOH abuse. Abdominal exam is fairly benign and unlikely to have other abdominal etiology at this time. Continue with current care and management. No acute surgical intervention recommended. We will follow with examinations and recommendations. Thank you for allowing me to participate in patient's care will follow along with you ICD Codes: R10.9 - Unspecified abdominal pain SNOMED: 88846013 (4) Pancreatitis ICD Codes: K85.90 - Acute pancreatitis without necrosis or infection, unspecified SNOMED: 21431975 Cameron Salcedo Oct 15, 2018 13:33
--- NOTE | 2018-10-15 13:35 | NUR ---
CASE MANAGEMENT: INITIAL REVIEW 33 YO M LENKA FROM HOME CC: ALOC PMHx: UNABLE TO STATE SI:ETOH WITHDRAWAL T 98.8 HR 130 RR 20 B/P 155/95 SATS 99% ON RA CL 95 GLU 176 TBILI 1.5 DBILI 0.4 AST 218 ALT 140 TOTAL CK 711 SERUM ETOH 473 IS: THIAMINE IV X1 NS BOLUS X1 ATIVAN IV X1 LIBRIUM PO X1 CT BRAIN (-) PATIENT ADMITTED TO TELE 10/14/2018 @ 0899 DCP: PATIENT TO BE DISCHARGED TO HOME ONCE MEDICALLY CLEARED. PLAN OF CARE: NPO FALL PRECAUTION 10/15/2018 SI:ETOH WITHDRAWAL T 98.1 HR 93 RR 18 B/P 112/63 SATS 95% ON RA K 3.4 CA 8.2 TBILI 1.3 AST 193ALT 110 TOTAL CK 443 LIPASE 775 IS: IVF @ 75 mL/HR PEPCID PO QD MULTIVITAMINS IV @ 125 mL/HR THIAMINE IV Q24H LIBRIUM PO Q6H TELE STATUS DCP: PATIENT TO BE DISCHARGED TO HOME ONCE MEDICALLY CLEARED. PLAN OF CARE: NPO FALL PRECAUTION Addendum: 10/16/18 at 0825 by Blanca Billy CM INTERQUAL
[2018-10-15] MEDS: Hydromorphone 0.5mg/0.5ml inj IVP PRN ×2 (15:26→21:56)
--- NOTE | 2018-10-15 17:30 | NUR ---
NURSE NOTES: Notified Dr. Lozano that the patient is hearing voice. He said that it is conversation type regarding how to escape from this place. He is not aggressive or agitative. Per Dr. Lozano, physician consult to Dr. Blancas, psychiatrist. Carried out the order.
--- NOTE | 2018-10-15 19:19 | NUR ---
HAND-OFF: Report given to ROLDAN Wyatt. The patient is resting on the bed without acute distress or shortness of breath. The patient's bed in the lowest position, call light in reach, and fall and aspiration precaution reinforced. Endorsed plan of care.
--- NOTE | 2018-10-15 19:20 | NUR ---
NURSE NOTES: Received report from ROLDAN Briceno. Pt. awake showing no signs of acute distress. Respiration even and non labored on room air. No sob noted. Fall precaution observed. Pt. is observed with unsteady gait, sitter at bedside. Pt. noted with tremors and anxiety with episode of hearing voices, MD aware. VS stable. Seizure precaution observed, bed side padded, side rails up x2. Bed in lowest position, wheels locked and alarm on. Call light within reach. All needs attended and met. Will continue plan of care.
--- NOTE | 2018-10-15 20:21 | General Progress Note ---
Assessment/Plan Assessment/Plan: 33 year old male admitted to ETOH w/d and pancreatitis. #ETOh withdrawal -s/p banana bag -Cont mIVF with D5 1/2NS with KCL -CIWA protocol -Ativan 2mg IV PRN if CIWA >8 -NPO for now due to increase ativan requirements -librium added -monitor electrolytes -fall precautions #Hypokalemia -repleted #Acute pancreatitis -ctm -pain control -GI consult appreciated -Surgery consult appreciated -NPO for now d/t etoh w/d Code: City Controller of note may not reflect time of encounter Subjective Date patient seen: Oct 15, 2018 Allergies: Coded Allergies: PENICILLINS (Verified Allergy, Unknown, 10/14/18) Subjective No acute overnight events, still shaky, still requiring ativan for w/d symptoms , states abdominal pain improved, has no other complaints Objective Last 24 Hour Vital Signs Date Time Temp Pulse Resp B/P (MAP) Pulse Ox O2 Delivery O2 Flow Rate FiO2 10/15/18 16:30 98.7 85 19 118/71 (87) 97 85 10/15/18 16:00 98.4 104 19 124/71 (88) 96 104 10/15/18 16:00 87 10/15/18 12:00 98.1 93 18 112/63 (79) 95 10/15/18 12:00 95 10/15/18 09:00 Room Air 10/15/18 08:00 122 10/15/18 08:00 98.1 91 18 127/72 (90) 98 10/15/18 06:55 98.0 10/15/18 04:00 98.0 110 18 130/77 (94) 98 10/15/18 04:00 101 10/15/18 00:00 108 10/15/18 00:00 98.2 108 18 114/66 (82) 99 10/14/18 21:00 Room Air 10/14/18 20:30 Room Air 10/14/18 20:25 93 10/14/18 20:22 97.2 93 18 124/83 (97) 100 Intake and Output 10/14/18 10/15/18 19:00 07:00 Intake Total 2056 ml 1015 ml Output Total 1650 ml Balance 2056 ml -635 ml IV Total 2056 ml 1015 ml Output Urine Total 1650 ml # Voids 5 3 Laboratory Tests 10/15/18 06:19: White Blood Count 5.3, Red Blood Count 3.91L, Hemoglobin 12.1L, Hematocrit 35.6L , Mean Corpuscular Volume 91, Mean Corpuscular Hemoglobin 30.9, Mean Corpuscular Hemoglobin Concent 33.9, Red Cell Distribution Width 11.5L, Platelet Count 48L, Mean Platelet Volume 5.5L, Neutrophils (%) (Auto) , Lymphocytes (%) (Auto) , Monocytes (%) (Auto) , Eosinophils (%) (Auto) , Basophils (%) (Auto) , Differential Total Cells Counted 100, Neutrophils % ( Manual) 64, Lymphocytes % (Manual) 29, Monocytes % (Manual) 5, Eosinophils % ( Manual) 0, Basophils % (Manual) 2, Band Neutrophils 0, Platelet Estimate DecreasedL, Platelet Morphology Normal, Red Blood Cell Morphology Normal, Sodium Level 140, Potassium Level 3.4L, Chloride Level 101, Carbon Dioxide Level 29, Anion Gap 10, Blood Urea Nitrogen 9, Creatinine 0.7, Estimat Glomerular Filtration Rate > 60, Glucose Level 102, Calcium Level 8.2L, Total Bilirubin 1.3H, Direct Bilirubin 0.3, Aspartate Amino Transf (AST/SGOT) 193H, Alanine Aminotransferase (ALT/SGPT) 110H, Alkaline Phosphatase 84, Total Creatine Kinase 443H, Total Protein 6.6, Albumin 4.2, Globulin 2.4, Albumin/ Globulin Ratio 1.7, Lipase 775H Height (Feet): 5 Height (Inches): 9.00 Weight (Pounds): 122 Objective General appearance: alert, cooperative, no distress, appears stated age Head: Normocephalic, without obvious abnormality, atraumatic Eyes: conjunctivae/corneas clear. PERRL, EOM's intact. Fundi benign Throat: Lips, mucosa, and tongue normal. Teeth and gums normal Neck: supple, symmetrical, trachea midline, no adenopathy, thyroid: not enlarged, symmetric, no tenderness/mass/nodules, no carotid bruit and no JVD Lungs: clear to auscultation bilaterally Heart: regular rate and rhythm, S1, S2 normal, no murmur, click, rub or gallop Abdomen: soft, tender to palpation. Bowel sounds normal. No masses, no organomegaly Extremities: extremities normal, atraumatic, no cyanosis or edema Pulses: 2+ and symmetric Skin: Skin color, texture, turgor normal. No rashes or lesions Neurologic: Grossly normal Mariajose Lozano MD Oct 15, 2018 20:21
--- NOTE | 2018-10-15 20:25 | Neurology Progress Note ---
Interim History Interim History ROS Limited/Unobtainable: No Interim History tremors persist Objective Physical Exam Last Vital Signs Date Time Temp Pulse Resp B/P (MAP) Pulse Ox O2 Delivery O2 Flow Rate FiO2 10/15/18 16:30 98.7 85 19 118/71 (87) 97 85 10/15/18 09:00 Room Air Laboratory Tests Test 10/15/18 06:19 White Blood Count 5.3 K/UL (4.8-10.8) Red Blood Count 3.91 M/UL (4.70-6.10) L Hemoglobin 12.1 G/DL (14.2-18.0) L Hematocrit 35.6 % (42.0-52.0) L Mean Corpuscular Volume 91 FL (80-99) Mean Corpuscular Hemoglobin 30.9 PG (27.0-31.0) Mean Corpuscular Hemoglobin Concent 33.9 G/DL (32.0-36.0) Red Cell Distribution Width 11.5 % (11.6-14.8) L Platelet Count 48 K/UL (150-450) L Mean Platelet Volume 5.5 FL (6.5-10.1) L Neutrophils (%) (Auto) % (45.0-75.0) Lymphocytes (%) (Auto) % (20.0-45.0) Monocytes (%) (Auto) % (1.0-10.0) Eosinophils (%) (Auto) % (0.0-3.0) Basophils (%) (Auto) % (0.0-2.0) Differential Total Cells Counted 100 Neutrophils % (Manual) 64 % (45-75) Lymphocytes % (Manual) 29 % (20-45) Monocytes % (Manual) 5 % (1-10) Eosinophils % (Manual) 0 % (0-3) Basophils % (Manual) 2 % (0-2) Band Neutrophils 0 % (0-8) Platelet Estimate Decreased L Platelet Morphology Normal Red Blood Cell Morphology Normal Sodium Level 140 MMOL/L (136-145) Potassium Level 3.4 MMOL/L (3.5-5.1) L Chloride Level 101 MMOL/L (98-107) Carbon Dioxide Level 29 MMOL/L (21-32) Anion Gap 10 mmol/L (5-15) Blood Urea Nitrogen 9 mg/dL (7-18) Creatinine 0.7 MG/DL (0.55-1.30) Estimat Glomerular Filtration Rate > 60 mL/min (>60) Glucose Level 102 MG/DL (74-106) Calcium Level 8.2 MG/DL (8.5-10.1) L Total Bilirubin 1.3 MG/DL (0.2-1.0) H Direct Bilirubin 0.3 MG/DL (0.0-0.3) Aspartate Amino Transf (AST/SGOT) 193 U/L (15-37) H Alanine Aminotransferase (ALT/SGPT) 110 U/L (12-78) H Alkaline Phosphatase 84 U/L (46-116) Total Creatine Kinase 443 U/L (26-308) H Total Protein 6.6 G/DL (6.4-8.2) Albumin 4.2 G/DL (3.4-5.0) Globulin 2.4 g/dL Albumin/Globulin Ratio 1.7 (1.0-2.7) Lipase 775 U/L (73-393) H Head: normocophalic Neck: no rigidity EENT: benign Neurologic Exam Mental Status: other Objective somnolent, wakes up, non focal withdraws all 4 Impression/Recommendations Problems: (1) Alcohol withdrawal (2) Acute alcohol intoxication Diagnostic Impression acute toxic encephalopathy ct brain wo hemorrhage monitor for withdrawal Yonathan Agrawal MD Oct 15, 2018 20:25
[2018-10-16] VITALS: BP 136/82
[2018-10-16] MEDS: chlordiazePOXIDE 25mg Cap ORAL SCH ×4 (00:23→17:11)
[2018-10-16 04:00] VITALS: BP 127/78
[2018-10-16] MEDS: LORazepam Inj 2mg/ml 1ml IV PRN (04:36)
[2018-10-16 06:42] LABS: HEMATOCRIT 33.6 % (42.0-52.0); HEMOGLOBIN 11.5 G/DL (14.2-18.0); MEAN CORPUSCULAR VOLUME 91 FL (80-99); PLATELET COUNT 40 K/UL (150-450); RED BLOOD COUNT 3.68 M/UL (4.70-6.10); WHITE BLOOD COUNT 2.7 K/UL (4.8-10.8)
[2018-10-16 07:33] LABS: CREATINE KINASE 237 U/L (26-308)
[2018-10-16 07:41] LABS: ALANINE AMINOTRANSFERASE 95 U/L (12-78); ALBUMIN 3.7 G/DL (3.4-5.0); ALBUMIN/GLOBULIN RATIO 1.5 (1.0-2.7); ALKALINE PHOSPHATASE 86 U/L (46-116); ANION GAP 7 mmol/L (5-15); ASPARTATE AMINO TRANSFERASE 134 U/L (15-37); BILIRUBIN,TOTAL 1.7 MG/DL (0.2-1.0); BLOOD UREA NITROGEN 6 mg/dL (7-18); CALCIUM 8.5 MG/DL (8.5-10.1); CARBON DIOXIDE 32 MMOL/L (21-32); CHLORIDE 101 MMOL/L (98-107); CHOLESTEROL 165 MG/DL (< 200); CREATININE 0.5 MG/DL (0.55-1.30); HDL CHOLESTEROL 94 MG/DL (40-60); POTASSIUM 3.3 MMOL/L (3.5-5.1); SODIUM 139 MMOL/L (136-145); TRIGLYCERIDES 26 MG/DL (30-150)
[2018-10-16 07:47] LABS: BILIRUBIN,DIRECT 0.4 MG/DL (0.0-0.3)
--- NOTE | 2018-10-16 07:53 | NUR ---
HAND-OFF: Report given to ROLDAN Garcia.
[2018-10-16 08:00] VITALS: BP 124/81
--- NOTE | 2018-10-16 08:22 | NUR ---
NURSE NOTES: Report received from ROLDAN Toscano. Observed patient in bed sleeping. Arousable by voice and verbally responsive. Denies pain at this time. Sitter at bedside. No distress noted in room air. IV site intact with ongoing IVF running at prescribed rate. Bed in lowest position. Call light within reach. Will continue to monitor.
[2018-10-16] MEDS: Docusate 100mg cap ORAL SCH ×2 (09:05→20:18)
--- NOTE | 2018-10-16 09:40 | NUR ---
CASE MANAGEMENT: REVIEW 10/16/2018 SI:ETOH WITHDRAWAL T 98.2 HR 70 RR 22 B/P 124/81 SATS 98% ON RA WBC 2.7 K 3.3 BUN 6 CR 0.5 TBILI 1.7 DBILI 0.4 AST 134 ALT 95 LIPASE 1378 IS: IVF @ 75 mL/HR PEPCID PO QD MULTIVITAMINS IV @ 125 mL/HR THIAMINE IV Q24H LIBRIUM PO Q6H TELE STATUS DCP: PATIENT TO BE DISCHARGED TO HOME ONCE MEDICALLY CLEARED. PLAN OF CARE: NPO FALL PRECAUTION
--- NOTE | 2018-10-16 09:59 | Consultation ---
History of Present Illness General Chief Complaint: Altered Level of Consciousness Referring physician: JYOTI, Reason for Consultation: Alcoholic withdrawal Present Illness Allergies: Coded Allergies: PENICILLINS (Verified Allergy, Unknown, 10/14/18) Medication History Scheduled Abacavir/Dolutegravir/Lamivudi (Triumeq 600-50-300 mg Tablet), 1 EACH PO DAILY, (Reported) Lamotrigine (Lamictal), 25 MG PO DAILY, (Reported) Propranolol HCl (Propranolol HCl), 20 MG PO TID, (Reported) Miscellaneous Medications [trimeq], (Reported) Patient History Healthcare decision maker N Resuscitation status Full Code Advanced Directive on File No Physical Exam Last 24 Hour Vital Signs Date Time Temp Pulse Resp B/P (MAP) Pulse Ox O2 Delivery O2 Flow Rate FiO2 10/16/18 09:00 Room Air 10/16/18 08:00 98.2 70 22 124/81 (95) 98 70 10/16/18 04:00 98.2 77 18 127/78 (94) 99 77 10/16/18 04:00 80 10/16/18 00:00 79 10/16/18 00:00 98.1 84 20 136/82 (100) 98 84 10/15/18 21:00 Room Air 10/15/18 20:00 93 10/15/18 20:00 98.2 96 18 133/76 (95) 97 96 10/15/18 16:30 98.7 85 19 118/71 (87) 97 85 10/15/18 16:00 98.4 104 19 124/71 (88) 96 104 10/15/18 16:00 87 10/15/18 12:00 98.1 93 18 112/63 (79) 95 10/15/18 12:00 95 Intake and Output 10/15/18 10/16/18 18:59 06:59 Intake Total 360 ml 271.25 ml Output Total 300 ml Balance 360 ml -28.75 ml Intake Oral 360 ml IV Total 271.25 ml Output Urine Total 300 ml # Voids 4 1 Laboratory Tests Test 10/16/18 05:30 White Blood Count 2.7 K/UL (4.8-10.8) L Red Blood Count 3.68 M/UL (4.70-6.10) L Hemoglobin 11.5 G/DL (14.2-18.0) L Hematocrit 33.6 % (42.0-52.0) L Mean Corpuscular Volume 91 FL (80-99) Mean Corpuscular Hemoglobin 31.2 PG (27.0-31.0) H Mean Corpuscular Hemoglobin Concent 34.1 G/DL (32.0-36.0) Red Cell Distribution Width 11.0 % (11.6-14.8) L Platelet Count 40 K/UL (150-450) L Mean Platelet Volume 7.4 FL (6.5-10.1) Neutrophils (%) (Auto) % (45.0-75.0) Lymphocytes (%) (Auto) % (20.0-45.0) Monocytes (%) (Auto) % (1.0-10.0) Eosinophils (%) (Auto) % (0.0-3.0) Basophils (%) (Auto) % (0.0-2.0) Differential Total Cells Counted 100 Neutrophils % (Manual) 57 % (45-75) Lymphocytes % (Manual) 34 % (20-45) Monocytes % (Manual) 7 % (1-10) Eosinophils % (Manual) 2 % (0-3) Basophils % (Manual) 0 % (0-2) Band Neutrophils 0 % (0-8) Platelet Estimate Decreased L Platelet Morphology Normal Red Blood Cell Morphology Normal Sodium Level 139 MMOL/L (136-145) Potassium Level 3.3 MMOL/L (3.5-5.1) L Chloride Level 101 MMOL/L (98-107) Carbon Dioxide Level 32 MMOL/L (21-32) Anion Gap 7 mmol/L (5-15) Blood Urea Nitrogen 6 mg/dL (7-18) L Creatinine 0.5 MG/DL (0.55-1.30) L Estimat Glomerular Filtration Rate > 60 mL/min (>60) Glucose Level 92 MG/DL (74-106) Calcium Level 8.5 MG/DL (8.5-10.1) Total Bilirubin 1.7 MG/DL (0.2-1.0) H Direct Bilirubin 0.4 MG/DL (0.0-0.3) H Aspartate Amino Transf (AST/SGOT) 134 U/L (15-37) H Alanine Aminotransferase (ALT/SGPT) 95 U/L (12-78) H Alkaline Phosphatase 86 U/L (46-116) Total Creatine Kinase 237 U/L (26-308) Total Protein 6.2 G/DL (6.4-8.2) L Albumin 3.7 G/DL (3.4-5.0) Globulin 2.5 g/dL Albumin/Globulin Ratio 1.5 (1.0-2.7) Triglycerides Level 26 MG/DL (30-150) L Cholesterol Level 165 MG/DL (< 200) LDL Cholesterol 61 mg/dL (<100) HDL Cholesterol 94 MG/DL (40-60) H Cholesterol/HDL Ratio 1.8 (3.3-4.4) L Lipase 1378 U/L (73-393) H Height (Feet): 5 Height (Inches): 9.00 Weight (Pounds): 122 Medications Current Medications Medications (Trade) Dose Ordered Sig/Lala Route PRN Reason Start Time Stop Time Status Last Admin Dose Admin Acetaminophen (Tylenol) 650 mg Q4H PRN ORAL Mild Pain (Pain Scale 1-3) 10/14/18 19:00 11/13/18 18:59 Bisacodyl (Dulcolax) 10 mg HSPRN PRN RECTAL Constipation 10/14/18 19:00 11/13/18 18:59 Chlordiazepoxide (Librium) 50 mg Q6HR ORAL 10/15/18 12:00 10/22/18 11:59 10/16/18 06:59 Dextrose (Dextrose 50%) 25 ml Q30M PRN IV Hypoglycemia 10/14/18 19:00 11/13/18 18:59 Dextrose (Dextrose 50%) 50 ml Q30M PRN IV Hypoglycemia 10/14/18 19:00 11/13/18 18:59 Dextrose/ Electrolytes 1,000 ml @ 75 mls/hr [id number] IV 10/14/18 21:00 11/13/18 20:59 10/16/18 00:23 Diphenhydramine HCl (Benadryl) 25 mg Q6H PRN ORAL Itching/Pruritis 10/14/18 19:00 11/13/18 18:59 Docusate Sodium (Colace) 100 mg EVERY 12 HOURS ORAL 10/14/18 21:00 11/13/18 20:59 10/16/18 09:05 Famotidine (Pepcid) 40 mg DAILY ORAL 10/15/18 09:00 11/14/18 08:59 10/16/18 09:05 Folic Acid 1 mg/ Magnesium Sulfate 2000 mg/ Multivitamins 10 ml/Sodium Chloride 1,014.2 ml @ 125 mls/ hr Q24H IV 10/15/18 11:00 11/14/18 10:59 10/15/18 11:09 Hydromorphone HCl (Dilaudid) 0.5 mg Q6H PRN IVP moderate pain 10/14/18 21:15 10/21/18 21:14 10/15/18 21:56 Hydromorphone HCl (Dilaudid) 1 mg Q6H PRN IVP SEVERE PAIN 10/14/18 21:15 10/21/18 21:14 10/15/18 06:25 Lorazepam (Ativan 2mg/ml 1ml) 2 mg Q3H PRN IV ALCOHOL WITHDRAWAL 10/15/18 08:00 10/22/18 07:59 10/16/18 04:36 Ondansetron HCl (Zofran) 4 mg Q6H PRN IVP Nausea & Vomiting 10/14/18 19:00 11/13/18 18:59 10/15/18 06:25 Oxycodone HCl (Roxicodone) 5 mg Q4H PRN ORAL Breakthrough Pain 10/14/18 19:00 10/21/18 18:59 10/15/18 02:21 Thiamine HCl 100 mg/Dextrose 56 ml @ 112 mls/hr Q24H IVPB 10/15/18 11:00 11/14/18 10:59 10/15/18 11:26 Assessment/Plan Assessment/Plan: Hematology Consultation Date patient seen: Oct 16, 2018 Reason for Hospitalization: Altered Level of Consciousness RFC: Pancytopenia evaluation and treatment REJeaneth MD: Mariajose Lozano ID Was called by Mariajose lanieral this patient -- he is a 33 year old male with PMh of ETOH abuse, presents with complaints of shaking, nausea, abdominal pain and unsteady gait for 1 days. States he binge drinks often, last drink was this morning prior to admission. Pt states abdominla pain is similiar to previous pancreatitis symptoms. States when he stops drinking alcohol he usually feels very anxious and starts shaking. Pt denies substance abuse, nausea, vomiting, chest pain, headaches, blurry vision, urinary complaints, fevers, chills, or SOB , seen by neuro, at this time, noted to have tremors, recent etoh withdrawal, some tremors, heme was consulted Allergies: PENICILLINS (Verified Allergy, Unknown, 10/14/18) Medication History Scheduled Abacavir/Dolutegravir/Lamivudi (Triumeq 600-50-300 mg Tablet), 1 EACH PO DAILY, (Reported) Lamotrigine (Lamictal), 25 MG PO DAILY, (Reported) Propranolol HCl (Propranolol HCl), 20 MG PO TID, (Reported) Miscellaneous Medications [trimeq], (Reported) Patient History Healthcare decision maker Resuscitation status Advanced Directive on File ROS General ROS:~no weight loss or fever Psychological ROS:~no depression or mood changes, no memory loss Ophthalmic ROS:~no visual changes or eye irritation ENT ROS:~no nasal congestion, hearing loss, dizziness Allergy and Immunology ROS:~no allergic symptoms or urticaria Hematological and Lymphatic ROS:~no swollen glands, unusual bleeding or bruising Endocrine ROS:~no polyuria, polydipsia, weight changes, temperature intolerance Respiratory ROS:~no cough, shortness of breath, or wheezing Cardiovascular ROS:~no chest pain or dyspnea on exertion Gastrointestinal ROS:~no abdominal pain, change in bowel habits Musculoskeletal ROS:~no myalgias or arthralgias Neurological ROS:~no TIA or stroke symptoms Dermatological ROS:~no new or changing skin lesions, rashes or pruritis PE Last 24 Hour Vital Signs Date Time Temp Pulse Resp B/P (MAP) Pulse Ox O2 Delivery O2 Flow Rate FiO2 10/16/18 09:00 Room Air 10/16/18 08:00 98.2 70 22 124/81 (95) 98 70 10/16/18 04:00 98.2 77 18 127/78 (94) 99 77 10/16/18 04:00 80 10/16/18 00:00 79 10/16/18 00:00 98.1 84 20 136/82 (100) 98 84 10/15/18 21:00 Room Air 10/15/18 20:00 93 10/15/18 20:00 98.2 96 18 133/76 (95) 97 96 10/15/18 16:30 98.7 85 19 118/71 (87) 97 85 10/15/18 16:00 98.4 104 19 124/71 (88) 96 104 10/15/18 16:00 87 10/15/18 12:00 98.1 93 18 112/63 (79) 95 10/15/18 12:00 95 Laboratory Tests Test 10/14/18 12:20 10/14/18 12:55 White Blood Count 6.9 K/UL (4.8-10.8) Red Blood Count 5.08 M/UL (4.70-6.10) Hemoglobin 15.5 G/DL (14.2-18.0) Hematocrit 46.3 % (42.0-52.0) Mean Corpuscular Volume 91 FL (80-99) Mean Corpuscular Hemoglobin 30.5 PG (27.0-31.0) Mean Corpuscular Hemoglobin Concent 33.5 G/DL (32.0-36.0) Red Cell Distribution Width 11.3 % (11.6-14.8) L Platelet Count 86 K/UL (150-450) L Mean Platelet Volume 6.0 FL (6.5-10.1) L Neutrophils (%) (Auto) % (45.0-75.0) Lymphocytes (%) (Auto) % (20.0-45.0) Monocytes (%) (Auto) % (1.0-10.0) Eosinophils (%) (Auto) % (0.0-3.0) Basophils (%) (Auto) % (0.0-2.0) Differential Total Cells Counted 100 Neutrophils % (Manual) 83 % (45-75) H Lymphocytes % (Manual) 10 % (20-45) L Monocytes % (Manual) 6 % (1-10) Eosinophils % (Manual) 0 % (0-3) Basophils % (Manual) 1 % (0-2) Band Neutrophils 0 % (0-8) Platelet Estimate Decreased L Platelet Morphology Normal Red Blood Cell Morphology Normal Sodium Level 139 MMOL/L (136-145) Potassium Level 3.7 MMOL/L (3.5-5.1) Chloride Level 95 MMOL/L (98-107) L Carbon Dioxide Level 21 MMOL/L (21-32) Anion Gap 23 mmol/L (5-15) H Blood Urea Nitrogen 15 mg/dL (7-18) Creatinine 0.8 MG/DL (0.55-1.30) Estimat Glomerular Filtration Rate > 60 mL/min (>60) Glucose Level 176 MG/DL (74-106) H Calcium Level 9.0 MG/DL (8.5-10.1) Phosphorus Level 4.5 MG/DL (2.5-4.9) Magnesium Level 1.9 MG/DL (1.8-2.4) Total Bilirubin 1.5 MG/DL (0.2-1.0) H Direct Bilirubin 0.4 MG/DL (0.0-0.3) H Aspartate Amino Transf (AST/SGOT) 218 U/L (15-37) H Alanine Aminotransferase (ALT/SGPT) 140 U/L (12-78) H Alkaline Phosphatase 116 U/L (46-116) Total Creatine Kinase 711 U/L (26-308) H Total Protein 8.3 G/DL (6.4-8.2) H Albumin 4.7 G/DL (3.4-5.0) Globulin 3.6 g/dL Albumin/Globulin Ratio 1.3 (1.0-2.7) Salicylates Level 1.3 ug/mL (2.8-20) L Acetaminophen Level < 2 MCG/ML (10-30) L Serum Alcohol 473 mg/dL Urine Color Pale yellow Urine Appearance Slightly cloudy Urine pH 6 (4.5-8.0) Urine Specific Dexter 1.010 (1.005-1.035) Urine Protein 2+ (NEGATIVE) H Urine Glucose (UA) Negative (NEGATIVE) Urine Ketones 3+ (NEGATIVE) H Urine Blood 5+ (NEGATIVE) H Urine Nitrite Negative (NEGATIVE) Urine Bilirubin Negative (NEGATIVE) Urine Urobilinogen Normal MG/DL (0.0-1.0) Urine Leukocyte Esterase Negative (NEGATIVE) Urine RBC 5-10 /HPF (0 - 0) H Urine WBC 0-2 /HPF (0 - 0) Urine Squamous Epithelial Cells Few /LPF (NONE/OCC) Urine Bacteria Occasional /HPF (NONE) Urine Granular Casts 0-2 /LPF (NONE) H Urine Fine Granular Casts 0-2 /LPF (NONE) H Urine Opiates Screen Negative (NEGATIVE) Urine Barbiturates Screen Negative (NEGATIVE) Phencyclidine (PCP) Screen Negative (NEGATIVE) Urine Amphetamines Screen Negative (NEGATIVE) Urine Benzodiazepines Screen Negative (NEGATIVE) Urine Cocaine Screen Negative (NEGATIVE) Urine Marijuana (THC) Screen Negative (NEGATIVE) General appearance:~~alert, not cooperative, no distress HEENT: NCAT, Teeth and gums normal Pulm: CTAB, no cwr CV: RRR, no mgr Abd: soft, nt, nd, bowel sounds normal Ext: no cce Pulses:2+ and symmetric Skin: Skin color, texture, turgor normal Neurologic:Grossly normal Assessment and Recs: # Pancytopenia likely due to ETOh abuse and ETOh withdrawal, however this is acute in onset, would be expected to be much more chronic --> obtain us of the abdomen r/o cirrhosis --> hep and hiv have both been ordered --> ldh hapto r/o DIC process --> s/p banana bag --> plt 86-->40k --> wbc 7-->2.7 # Acute pancreatitis --> Cont mIVF with D5 1/2NS with KCL --> Ativan 2mg IV PRN if CIMA >8 --> pain control # Transaminitis is likely due to liver disease --> imaging of the abd has been ordered --> r/o cbd obst # PCM - likely due to etoh abuse --> recommend improvement of oral intake --> etoh cessation Greatly appreciate consultation! Avtar Allen MD Oct 16, 2018 09:59
--- NOTE | 2018-10-16 10:07 | NUR ---
NURSE NOTES: Called and left message to Dr. Lozano regarding low potassium level. Awaiting for call back.
[2018-10-16 10:31] LABS: FERRITIN 1282 NG/ML (8-388); LACTATE DEHYDROGENASE 313 U/L (81-234)
--- NOTE | 2018-10-16 10:49 | GI Progress Note ---
Assessment/Plan Problems: (1) Pancreatitis ICD Codes: K85.90 - Acute pancreatitis without necrosis or infection, unspecified SNOMED: 90608815 (2) Abdominal pain ICD Codes: R10.9 - Unspecified abdominal pain SNOMED: 90452152 (3) Alcohol withdrawal ICD Codes: F10.239 - Alcohol dependence with withdrawal, unspecified SNOMED: 281670662 (4) Acute alcohol intoxication ICD Codes: F10.929 - Alcohol use, unspecified with intoxication, unspecified SNOMED: 53611267, 8466477 (5) Alcoholic hepatitis ICD Codes: K70.10 - Alcoholic hepatitis without ascites SNOMED: 477943159 Status: unchanged Status Narrative Discussed with Dr. Rodgers. Assessment/Plan Clear liquid diet plus IV banana bag Ativan as needed pain mgmt zofran prn H2B follow labs trend LFTs, lipase The patient was seen and examined at bedside and all new and available data was reviewed in the patients chart. I agree with the above findings, impression and plan. (Patient seen earlier today. Signature stamp does not reflect patient encounter time.). - Eliseo Rodgers MD Subjective Subjective limited Objective Last 24 Hour Vital Signs Date Time Temp Pulse Resp B/P (MAP) Pulse Ox O2 Delivery O2 Flow Rate FiO2 10/16/18 09:00 Room Air 10/16/18 08:00 98.2 70 22 124/81 (95) 98 70 10/16/18 04:00 98.2 77 18 127/78 (94) 99 77 10/16/18 04:00 80 10/16/18 00:00 79 10/16/18 00:00 98.1 84 20 136/82 (100) 98 84 10/15/18 21:00 Room Air 10/15/18 20:00 93 10/15/18 20:00 98.2 96 18 133/76 (95) 97 96 10/15/18 16:30 98.7 85 19 118/71 (87) 97 85 10/15/18 16:00 98.4 104 19 124/71 (88) 96 104 10/15/18 16:00 87 10/15/18 12:00 98.1 93 18 112/63 (79) 95 10/15/18 12:00 95 Intake and Output 10/15/18 10/16/18 19:00 07:00 Intake Total 360 ml 271.25 ml Output Total 300 ml Balance 360 ml -28.75 ml Intake Oral 360 ml IV Total 271.25 ml Output Urine Total 300 ml # Voids 4 1 Laboratory Tests Test 10/16/18 00:00 10/16/18 05:30 10/16/18 10:06 HIV-1 Antibody Pending HIV-2 Antibody Pending White Blood Count 2.7 K/UL (4.8-10.8) L Red Blood Count 3.68 M/UL (4.70-6.10) L Hemoglobin 11.5 G/DL (14.2-18.0) L Hematocrit 33.6 % (42.0-52.0) L Mean Corpuscular Volume 91 FL (80-99) Mean Corpuscular Hemoglobin 31.2 PG (27.0-31.0) H Mean Corpuscular Hemoglobin Concent 34.1 G/DL (32.0-36.0) Red Cell Distribution Width 11.0 % (11.6-14.8) L Platelet Count 40 K/UL (150-450) L Mean Platelet Volume 7.4 FL (6.5-10.1) Neutrophils (%) (Auto) % (45.0-75.0) Lymphocytes (%) (Auto) % (20.0-45.0) Monocytes (%) (Auto) % (1.0-10.0) Eosinophils (%) (Auto) % (0.0-3.0) Basophils (%) (Auto) % (0.0-2.0) Differential Total Cells Counted 100 Neutrophils % (Manual) 57 % (45-75) Lymphocytes % (Manual) 34 % (20-45) Monocytes % (Manual) 7 % (1-10) Eosinophils % (Manual) 2 % (0-3) Basophils % (Manual) 0 % (0-2) Band Neutrophils 0 % (0-8) Platelet Estimate Decreased L Platelet Morphology Normal Red Blood Cell Morphology Normal Reticulocyte Count 0.5 % (0.5-2.0) Sickle Cell Screen Pending Sodium Level 139 MMOL/L (136-145) Potassium Level 3.3 MMOL/L (3.5-5.1) L Chloride Level 101 MMOL/L (98-107) Carbon Dioxide Level 32 MMOL/L (21-32) Anion Gap 7 mmol/L (5-15) Blood Urea Nitrogen 6 mg/dL (7-18) L Creatinine 0.5 MG/DL (0.55-1.30) L Estimat Glomerular Filtration Rate > 60 mL/min (>60) Glucose Level 92 MG/DL (74-106) Calcium Level 8.5 MG/DL (8.5-10.1) Iron Level Pending Unsaturated Iron Binding Pending Ferritin 1282 NG/ML (8-388) H Total Bilirubin 1.7 MG/DL (0.2-1.0) H Direct Bilirubin 0.4 MG/DL (0.0-0.3) H Aspartate Amino Transf (AST/SGOT) 134 U/L (15-37) H Alanine Aminotransferase (ALT/SGPT) 95 U/L (12-78) H Alkaline Phosphatase 86 U/L (46-116) Lactate Dehydrogenase 313 U/L (81-234) H Total Creatine Kinase 237 U/L (26-308) Total Protein 6.2 G/DL (6.4-8.2) L Albumin 3.7 G/DL (3.4-5.0) Globulin 2.5 g/dL Albumin/Globulin Ratio 1.5 (1.0-2.7) Triglycerides Level 26 MG/DL (30-150) L Cholesterol Level 165 MG/DL (< 200) LDL Cholesterol 61 mg/dL (<100) HDL Cholesterol 94 MG/DL (40-60) H Cholesterol/HDL Ratio 1.8 (3.3-4.4) L Lipase 1378 U/L (73-393) H Vitamin B12 Level Pending Folate Pending Hepatitis A IgM Antibody Pending Hepatitis B Surface Antigen Pending Hepatitis B Core IgM Antibody Pending Hepatitis C Antibody Pending HIV (1&2) Antibody Rapid Preliminary positive Prothrombin Time Pending Prothromb Time International Ratio Pending Fibrinogen Pending Height (Feet): 5 Height (Inches): 9.00 Weight (Pounds): 122 General Appearance: WD/WN, no apparent distress, alert Cardiovascular: normal rate Respiratory/Chest: normal breath sounds, no respiratory distress Abdominal Exam: normal bowel sounds, non tender, soft Extremities: normal range of motion, non-tender Gray Adkins NP Oct 16, 2018 10:49
--- NOTE | 2018-10-16 10:52 | NUR ---
NURSE NOTES: Called back from Dr. Lozano regarding low potassium level with new order. Order carried out.
[2018-10-16 11:01] LABS: IRON 42 ug/dL (50-175); TOTAL IRON BINDING CAPACITY 165 ug/dL (250-450)
[2018-10-16 11:08] LABS: % IRON SATURATION 25 % (15-50)
[2018-10-16 11:14] LABS: INR 0.9 (0.9-1.1)
[2018-10-16] MEDS: Folic Acid 1 MG, Magnesium Sulfate 2,000 MG, Multivitamin - 12 Injection 10 ML in Sodiu... IV SCH (11:21)
[2018-10-16] MEDS: Thiamine 100mg in D5W 55ml IVPB SCH (11:21)
--- NOTE | 2018-10-16 11:30 | NUR ---
Social Service Note SW met with patient to assess for substance abuse/dependency. Patient was alert, oriented and verbally responsive. Patient denies substance abuse dependency and the severity of his alcohol intake. Patient states this was an isolated incident. Patient is not receptive to substance abuse referrals. Patient states he will return home upon discharge to the address listed on the face sheet. Patient provided an emergency contact Haven Lee sister [phone]. Will continue to be available as needed.
[2018-10-16 12:00] VITALS: BP 124/90
[2018-10-16] MEDS: HYDROmorphone 1mg/ml Carpuject IVP PRN ×2 (13:19→21:21)
--- NOTE | 2018-10-16 13:42 | Surgery Progress Note ---
Surgery Progress Note Subjective Additional Comments states he feels better today still with pain but improved slightly no n/v/f/c states not hungry shaking improved Objective Last 24 Hour Vital Signs Date Time Temp Pulse Resp B/P (MAP) Pulse Ox O2 Delivery O2 Flow Rate FiO2 10/16/18 12:00 85 10/16/18 12:00 98.0 89 20 124/90 (101) 98 89 10/16/18 09:00 Room Air 10/16/18 08:00 81 10/16/18 08:00 98.2 70 22 124/81 (95) 98 70 10/16/18 04:00 98.2 77 18 127/78 (94) 99 77 10/16/18 04:00 80 10/16/18 00:00 79 10/16/18 00:00 98.1 84 20 136/82 (100) 98 84 10/15/18 21:00 Room Air 10/15/18 20:00 93 10/15/18 20:00 98.2 96 18 133/76 (95) 97 96 10/15/18 16:30 98.7 85 19 118/71 (87) 97 85 10/15/18 16:00 98.4 104 19 124/71 (88) 96 104 10/15/18 16:00 87 I&O Intake and Output 10/15/18 10/16/18 19:00 07:00 Intake Total 360 ml 271.25 ml Output Total 300 ml Balance 360 ml -28.75 ml Intake Oral 360 ml IV Total 271.25 ml Output Urine Total 300 ml # Voids 4 1 Cardiovascular: RSR Respiratory: clear Abdomen: soft, non-tender, present bowel sounds, non-distended Laboratory Tests Test 10/16/18 00:00 10/16/18 05:30 10/16/18 10:06 HIV-1 Antibody Pending HIV-2 Antibody Pending White Blood Count 2.7 K/UL (4.8-10.8) L Red Blood Count 3.68 M/UL (4.70-6.10) L Hemoglobin 11.5 G/DL (14.2-18.0) L Hematocrit 33.6 % (42.0-52.0) L Mean Corpuscular Volume 91 FL (80-99) Mean Corpuscular Hemoglobin 31.2 PG (27.0-31.0) H Mean Corpuscular Hemoglobin Concent 34.1 G/DL (32.0-36.0) Red Cell Distribution Width 11.0 % (11.6-14.8) L Platelet Count 40 K/UL (150-450) L Mean Platelet Volume 7.4 FL (6.5-10.1) Neutrophils (%) (Auto) % (45.0-75.0) Lymphocytes (%) (Auto) % (20.0-45.0) Monocytes (%) (Auto) % (1.0-10.0) Eosinophils (%) (Auto) % (0.0-3.0) Basophils (%) (Auto) % (0.0-2.0) Differential Total Cells Counted 100 Neutrophils % (Manual) 57 % (45-75) Lymphocytes % (Manual) 34 % (20-45) Monocytes % (Manual) 7 % (1-10) Eosinophils % (Manual) 2 % (0-3) Basophils % (Manual) 0 % (0-2) Band Neutrophils 0 % (0-8) Other Cell Type Pathologist review Platelet Estimate Decreased L Platelet Morphology Normal Red Blood Cell Morphology Normal Reticulocyte Count 0.5 % (0.5-2.0) Sickle Cell Screen Pending Sodium Level 139 MMOL/L (136-145) Potassium Level 3.3 MMOL/L (3.5-5.1) L Chloride Level 101 MMOL/L (98-107) Carbon Dioxide Level 32 MMOL/L (21-32) Anion Gap 7 mmol/L (5-15) Blood Urea Nitrogen 6 mg/dL (7-18) L Creatinine 0.5 MG/DL (0.55-1.30) L Estimat Glomerular Filtration Rate > 60 mL/min (>60) Glucose Level 92 MG/DL (74-106) Calcium Level 8.5 MG/DL (8.5-10.1) Iron Level 42 ug/dL (50-175) L Total Iron Binding Capacity 165 ug/dL (250-450) L Percent Iron Saturation 25 % (15-50) Unsaturated Iron Binding 123 ug/dL (112-346) Ferritin 1282 NG/ML (8-388) H Total Bilirubin 1.7 MG/DL (0.2-1.0) H Direct Bilirubin 0.4 MG/DL (0.0-0.3) H Aspartate Amino Transf (AST/SGOT) 134 U/L (15-37) H Alanine Aminotransferase (ALT/SGPT) 95 U/L (12-78) H Alkaline Phosphatase 86 U/L (46-116) Lactate Dehydrogenase 313 U/L (81-234) H Total Creatine Kinase 237 U/L (26-308) Total Protein 6.2 G/DL (6.4-8.2) L Albumin 3.7 G/DL (3.4-5.0) Globulin 2.5 g/dL Albumin/Globulin Ratio 1.5 (1.0-2.7) Triglycerides Level 26 MG/DL (30-150) L Cholesterol Level 165 MG/DL (< 200) LDL Cholesterol 61 mg/dL (<100) HDL Cholesterol 94 MG/DL (40-60) H Cholesterol/HDL Ratio 1.8 (3.3-4.4) L Lipase 1378 U/L (73-393) H Vitamin B12 Level 702 PG/ML (193-986) Folate 20.6 NG/ML (8.6-58.9) Hepatitis A IgM Antibody Pending Hepatitis B Surface Antigen Pending Hepatitis B Core IgM Antibody Pending Hepatitis C Antibody Pending HIV (1&2) Antibody Rapid Preliminary positive Prothrombin Time 10.1 SEC (9.30-11.50) Prothromb Time International Ratio 0.9 (0.9-1.1) Fibrinogen 269 mg/dL (200-400) Plan Problems: (1) Alcohol withdrawal (2) Acute alcohol intoxication (3) Abdominal pain Assessment & Plan: 33-year-old male with cramping abdominal pain generalized intermittent and noted most when he is not drinking. Patient currently in withdrawal and noted to have pancreatitis. Labs improving. Patient under current treatment for withdrawal. Likely etiology of pancreatitis is EtOH abuse. Abdominal exam is fairly benign and unlikely to have other abdominal etiology at this time. Continue with current care and management. No acute surgical intervention recommended. We will follow with examinations and recommendations. Thank you for allowing me to participate in patient's care will follow along with you (4) Pancreatitis Cameron Salcedo Oct 16, 2018 13:42
--- NOTE | 2018-10-16 13:54 | NUR ---
NURSE NOTES: Received report from ROLDAN Garcia. pt in bed, awake, talkative, calm, no complaints of pain at this time, Orquidea perdomo at bedside. Bed in lowest position call light within reach.
--- NOTE | 2018-10-16 13:57 | NUR ---
HAND-OFF: Report given to ROLDAN Irizarry. Stable condition.
--- NOTE | 2018-10-16 15:16 | Diagnostic Imaging Report ---
Indication: Abdominal pain Technique: Grayscale and duplex Doppler imaging of the abdomen performed. Comparison: None Findings: The liver is echogenic. Doppler interrogation of the main portal vein shows patency with hepatopedal, monophasic flow. There is no biliary ductal dilatation identified. CBD measures 4 mm. Gallbladder is unremarkable. Sonographic [place]'s sign was negative per technologist. There demonstrated part of the pancreas, aorta and IVC show no definite abnormalities. Both kidneys appear unremarkable. There is no hydronephrosis. IMPRESSION: Fatty liver. Negative exam otherwise.
[2018-10-16 16:00] VITALS: BP 121/71
--- NOTE | 2018-10-16 16:02 | Cardiology Report ---
APPROVED REPORT EKG Measurement Heart [id number] Sinus tachycardia Otherwise normal ECG
--- NOTE | 2018-10-16 16:02 | Neurology Progress Note ---
Interim History Interim History ROS Limited/Unobtainable: No Interim History better tremors improved Objective Physical Exam Last Vital Signs Date Time Temp Pulse Resp B/P (MAP) Pulse Ox O2 Delivery O2 Flow Rate FiO2 10/16/18 12:00 85 10/16/18 12:00 98.0 20 124/90 (101) 98 10/16/18 09:00 Room Air Laboratory Tests Test 10/16/18 00:00 10/16/18 05:30 10/16/18 10:06 HIV-1 Antibody Pending HIV-2 Antibody Pending White Blood Count 2.7 K/UL (4.8-10.8) L Red Blood Count 3.68 M/UL (4.70-6.10) L Hemoglobin 11.5 G/DL (14.2-18.0) L Hematocrit 33.6 % (42.0-52.0) L Mean Corpuscular Volume 91 FL (80-99) Mean Corpuscular Hemoglobin 31.2 PG (27.0-31.0) H Mean Corpuscular Hemoglobin Concent 34.1 G/DL (32.0-36.0) Red Cell Distribution Width 11.0 % (11.6-14.8) L Platelet Count 40 K/UL (150-450) L Mean Platelet Volume 7.4 FL (6.5-10.1) Neutrophils (%) (Auto) % (45.0-75.0) Lymphocytes (%) (Auto) % (20.0-45.0) Monocytes (%) (Auto) % (1.0-10.0) Eosinophils (%) (Auto) % (0.0-3.0) Basophils (%) (Auto) % (0.0-2.0) Differential Total Cells Counted 100 Neutrophils % (Manual) 57 % (45-75) Lymphocytes % (Manual) 34 % (20-45) Monocytes % (Manual) 7 % (1-10) Eosinophils % (Manual) 2 % (0-3) Basophils % (Manual) 0 % (0-2) Band Neutrophils 0 % (0-8) Other Cell Type Pathologist review Platelet Estimate Decreased L Platelet Morphology Normal Red Blood Cell Morphology Normal Reticulocyte Count 0.5 % (0.5-2.0) Sickle Cell Screen Pending Sodium Level 139 MMOL/L (136-145) Potassium Level 3.3 MMOL/L (3.5-5.1) L Chloride Level 101 MMOL/L (98-107) Carbon Dioxide Level 32 MMOL/L (21-32) Anion Gap 7 mmol/L (5-15) Blood Urea Nitrogen 6 mg/dL (7-18) L Creatinine 0.5 MG/DL (0.55-1.30) L Estimat Glomerular Filtration Rate > 60 mL/min (>60) Glucose Level 92 MG/DL (74-106) Calcium Level 8.5 MG/DL (8.5-10.1) Iron Level 42 ug/dL (50-175) L Total Iron Binding Capacity 165 ug/dL (250-450) L Percent Iron Saturation 25 % (15-50) Unsaturated Iron Binding 123 ug/dL (112-346) Ferritin 1282 NG/ML (8-388) H Total Bilirubin 1.7 MG/DL (0.2-1.0) H Direct Bilirubin 0.4 MG/DL (0.0-0.3) H Aspartate Amino Transf (AST/SGOT) 134 U/L (15-37) H Alanine Aminotransferase (ALT/SGPT) 95 U/L (12-78) H Alkaline Phosphatase 86 U/L (46-116) Lactate Dehydrogenase 313 U/L (81-234) H Total Creatine Kinase 237 U/L (26-308) Total Protein 6.2 G/DL (6.4-8.2) L Albumin 3.7 G/DL (3.4-5.0) Globulin 2.5 g/dL Albumin/Globulin Ratio 1.5 (1.0-2.7) Triglycerides Level 26 MG/DL (30-150) L Cholesterol Level 165 MG/DL (< 200) LDL Cholesterol 61 mg/dL (<100) HDL Cholesterol 94 MG/DL (40-60) H Cholesterol/HDL Ratio 1.8 (3.3-4.4) L Lipase 1378 U/L (73-393) H Vitamin B12 Level 702 PG/ML (193-986) Folate 20.6 NG/ML (8.6-58.9) Hepatitis A IgM Antibody Pending Hepatitis B Surface Antigen Pending Hepatitis B Core IgM Antibody Pending Hepatitis C Antibody Pending HIV (1&2) Antibody Rapid Preliminary positive Prothrombin Time 10.1 SEC (9.30-11.50) Prothromb Time International Ratio 0.9 (0.9-1.1) Fibrinogen 269 mg/dL (200-400) Head: normocophalic Neck: no rigidity EENT: benign Neurologic Exam Mental Status: other Objective somnolent, wakes up, non focal withdraws all 4 Impression/Recommendations Problems: (1) Alcohol withdrawal (2) Acute alcohol intoxication Status: unchanged Diagnostic Impression acute toxic encephalopathy ct brain wo hemorrhage monitor for withdrawal Yonathan Agrawal MD Oct 16, 2018 16:02
--- NOTE | 2018-10-16 18:44 | General Progress Note ---
Assessment/Plan Status: unchanged Assessment/Plan: 33 year old male admitted to [facility] w/d and pancreatitis. #ETOh withdrawal - improving -s/p banana bag -Cont mIVF with D5 1/2NS with KCL -CIWA protocol - decreasing - 8 today -Ativan 2mg IV PRN if CIWA >8 -diet started -Cont librium - will decrease in am -monitor electrolytes -fall precautions #Hypokalemia -repleted #Acute pancreatitis -ctm -pain control -GI consult appreciated -Surgery consult appreciated -lipase increased, however clinically improved Code: It Compliance Manager of note may not reflect time of encounter Subjective Date patient seen: Oct 16, 2018 ROS Limited/Unobtainable: No Allergies: Coded Allergies: PENICILLINS (Verified Allergy, Unknown, 10/14/18) Subjective No acute overnight events, symptoms improving, states abdominal pain improved, has no other complaints, pancytopenia noted, pending abd US, Objective Last 24 Hour Vital Signs Date Time Temp Pulse Resp B/P (MAP) Pulse Ox O2 Delivery O2 Flow Rate FiO2 10/16/18 16:00 97.5 87 20 121/71 (88) 87 10/16/18 15:56 75 10/16/18 12:00 85 10/16/18 12:00 98.0 89 20 124/90 (101) 98 89 10/16/18 09:00 Room Air 10/16/18 08:00 81 10/16/18 08:00 98.2 70 22 124/81 (95) 98 70 10/16/18 04:00 98.2 77 18 127/78 (94) 99 77 10/16/18 04:00 80 10/16/18 00:00 79 10/16/18 00:00 98.1 84 20 136/82 (100) 98 84 10/15/18 21:00 Room Air 10/15/18 20:00 93 10/15/18 20:00 98.2 96 18 133/76 (95) 97 96 Intake and Output 10/15/18 10/16/18 19:00 07:00 Intake Total 360 ml 271.25 ml Output Total 300 ml Balance 360 ml -28.75 ml Intake Oral 360 ml IV Total 271.25 ml Output Urine Total 300 ml # Voids 4 1 Laboratory Tests 10/16/18 00:00: HIV-1 Antibody [Pending], HIV-2 Antibody [Pending] 10/16/18 05:30: White Blood Count 2.7L, Red Blood Count 3.68L, Hemoglobin 11.5L, Hematocrit 33.6L, Mean Corpuscular Volume 91, Mean Corpuscular Hemoglobin 31.2H, Mean Corpuscular Hemoglobin Concent 34.1, Red Cell Distribution Width 11.0L, Platelet Count 40L, Mean Platelet Volume 7.4, Neutrophils (%) (Auto) , Lymphocytes (%) (Auto) , Monocytes (%) (Auto) , Eosinophils (%) (Auto) , Basophils (%) (Auto) , Differential Total Cells Counted 100, Neutrophils % ( Manual) 57, Lymphocytes % (Manual) 34, Monocytes % (Manual) 7, Eosinophils % ( Manual) 2, Basophils % (Manual) 0, Band Neutrophils 0, Other Cell Type Pathologist review, Platelet Estimate DecreasedL, Platelet Morphology Normal, Red Blood Cell Morphology Normal, Reticulocyte Count 0.5, Sickle Cell Screen [ Pending], Sodium Level 139, Potassium Level 3.3L, Chloride Level 101, Carbon Dioxide Level 32, Anion Gap 7, Blood Urea Nitrogen 6L, Creatinine 0.5L, Estimat Glomerular Filtration Rate > 60, Glucose Level 92, Calcium Level 8.5, Iron Level 42L, Total Iron Binding Capacity 165L, Percent Iron Saturation 25, Unsaturated Iron Binding 123, Ferritin 1282H, Total Bilirubin 1.7H, Direct Bilirubin 0.4H, Aspartate Amino Transf (AST/SGOT) 134H, Alanine Aminotransferase (ALT/SGPT) 95H, Alkaline Phosphatase 86, Lactate Dehydrogenase 313H, Total Creatine Kinase 237, Total Protein 6.2L, Albumin 3.7, Globulin 2.5, Albumin/Globulin Ratio 1.5, Triglycerides Level 26L, Cholesterol Level 165, LDL Cholesterol 61, HDL Cholesterol 94H, Cholesterol/HDL Ratio 1.8L, Lipase 1378H, Vitamin B12 Level 702, Folate 20.6, Hepatitis A IgM Antibody [Pending], Hepatitis B Surface Antigen [Pending], Hepatitis B Core IgM Antibody [Pending], Hepatitis C Antibody [Pending], HIV (1&2) Antibody Rapid Preliminary positiveH 10/16/18 10:06: Prothrombin Time 10.1, Prothromb Time International Ratio 0.9, Fibrinogen 269 Height (Feet): 5 Height (Inches): 9.00 Weight (Pounds): 122 Objective General appearance: alert, cooperative, no distress, appears stated age Head: Normocephalic, without obvious abnormality, atraumatic Eyes: conjunctivae/corneas clear. PERRL, EOM's intact. Fundi benign Throat: Lips, mucosa, and tongue normal. Teeth and gums normal Neck: supple, symmetrical, trachea midline, no adenopathy, thyroid: not enlarged, symmetric, no tenderness/mass/nodules, no carotid bruit and no JVD Lungs: clear to auscultation bilaterally Heart: regular rate and rhythm, S1, S2 normal, no murmur, click, rub or gallop Abdomen: soft, tender to palpation. Bowel sounds normal. No masses, no organomegaly Extremities: extremities normal, atraumatic, no cyanosis or edema Pulses: 2+ and symmetric Skin: Skin color, texture, turgor normal. No rashes or lesions Neurologic: Grossly normal Mariajose Lozano MD Oct 16, 2018 18:44
--- NOTE | 2018-10-16 19:00 | NUR ---
NURSE NOTES:Patient received FROM Zhanna Henry and Petey 1:1 sitter . Patient A/AOX4 verbally responsive left hand g #20 IVF infusing well . Patient denies any pain at this time . no sob noted . Patient c/o of N/V .Explain to patients medication for nausea will be given on schedule time . patient verbalized his understanding. safety / fall precaution . 1:1 sitter at bedside (Ligia Thomas LVN) . call light within reach .bed in low position at all times . bed alarm on. will continue to monitor. Addendum: 10/17/18 at 0022 by LIGIA THOMAS LVN Seizure precaution . side rails padded x2 patient no activity of seizure at this time. will continue to monitor
--- NOTE | 2018-10-16 19:25 | NUR ---
HAND-OFF: Report given to ROLDAN Otero.
--- NOTE | 2018-10-16 19:30 | NUR ---
NURSE NOTES: Pt received from ROLDAN Irizarry alert and oriented x4 with no acute s/s of distress noted but with mild anxiety. Pt complains that IV site is leaking and painful, RN discontinued IV and will start new one. Bed in lowest position, call light and belongings within reach. Sitter Irasema MAYA at bedside.
[2018-10-16 20:00] VITALS: BP 130/77
--- NOTE | 2018-10-16 20:15 | NUR ---
NURSE NOTES: Patient LH G#20 was leaking. New IV line started on RH g#22 patent and intact.
--- NOTE | 2018-10-16 21:21 | NUR ---
NURSE NOTES patient c/o abdomial pain . pain rates 09/14 . Dilaudid 1 mg IVP given by ANVEEN Brown will continue to monitor.
--- NOTE | 2018-10-16 21:51 | NUR ---
NURSE NOTE Patient Assessing pain .no pain at this time . patient asleep.
[2018-10-17] VITALS (9 sets, daily range): BP systolic 113–131; BP diastolic 70–87
[2018-10-17] MEDS: chlordiazePOXIDE 25mg Cap ORAL SCH ×5 (00:17→23:26)
[2018-10-17] MEDS: HYDROmorphone 1mg/ml Carpuject IVP PRN ×2 (05:49→21:45)
[2018-10-17 06:13] LABS: HEMATOCRIT 34.1 % (42.0-52.0); HEMOGLOBIN 11.6 G/DL (14.2-18.0); MEAN CORPUSCULAR VOLUME 90 FL (80-99); PLATELET COUNT 50 K/UL (150-450); RED BLOOD COUNT 3.77 M/UL (4.70-6.10); RED CELL DISTRIBUTION WIDTH 10.9 % (11.6-14.8); WHITE BLOOD COUNT 2.9 K/UL (4.8-10.8)
[2018-10-17 06:45] LABS: ALANINE AMINOTRANSFERASE 78 U/L (12-78); ALBUMIN 3.9 G/DL (3.4-5.0); ALBUMIN/GLOBULIN RATIO 1.5 (1.0-2.7); ALKALINE PHOSPHATASE 87 U/L (46-116); ANION GAP 8 mmol/L (5-15); ASPARTATE AMINO TRANSFERASE 91 U/L (15-37); BILIRUBIN,TOTAL 0.9 MG/DL (0.2-1.0); BLOOD UREA NITROGEN 8 mg/dL (7-18); CALCIUM 8.7 MG/DL (8.5-10.1); CARBON DIOXIDE 29 MMOL/L (21-32); CHLORIDE 102 MMOL/L (98-107); CREATININE 0.6 MG/DL (0.55-1.30); SODIUM 139 MMOL/L (136-145)
--- NOTE | 2018-10-17 06:55 | NUR ---
NURSE NOTES Patient personal belongings endorsed to incoming Jessec synchro assembler 1:1 sitter (patient 2 rings , necklace with pendant yellow tone . Iphone 10 no diet consultant and wallet with 2 credit cards $5.00 and Patient clothes ).
--- NOTE | 2018-10-17 07:15 | NUR ---
HAND-OFF: Report given to ROLDAN valdovinos. No acute s/s of distress noted.
--- NOTE | 2018-10-17 07:35 | NUR ---
NURSE NOTES: Report received from ROLDAN Otero. Pt. AOx4. In RA. Denies any pain or SOB. R H 22g running D5 with 20KCL @75, site intact. In clear liquid diet at this time, voiced nausea felling better after medicated with zofran an hour + ago. Bed on lowest position, side rails upx2, brakes engaged. Call light within easy reach.
--- NOTE | 2018-10-17 08:08 | General Progress Note ---
Assessment/Plan Status: unchanged Assessment/Plan: (1) Pancreatitis ICD Codes: K85.90 - Acute pancreatitis without necrosis or infection, unspecified SNOMED: 80392763 (2) Abdominal pain ICD Codes: R10.9 - Unspecified abdominal pain SNOMED: 29801755 (3) Alcohol withdrawal ICD Codes: F10.239 - Alcohol dependence with withdrawal, unspecified SNOMED: 782636509 (4) Acute alcohol intoxication ICD Codes: F10.929 - Alcohol use, unspecified with intoxication, unspecified SNOMED: 12186873, 6280680 (5) Alcoholic hepatitis ICD Codes: K70.10 - Alcoholic hepatitis without ascites (6) HIV SNOMED: 677024847 Status: unchanged Status Narrative Discussed with Dr. Rodgers. Assessment/Plan Clear liquid diet plus IV banana bag>> will advance to full liquid Ativan as needed pain mgmt zofran prn H2B follow labs trend LFTs, lipase us>>> fatty liver Subjective ROS Limited/Unobtainable: Yes Allergies: Coded Allergies: PENICILLINS (Verified Allergy, Unknown, 10/14/18) Subjective vomited once Objective Last 24 Hour Vital Signs Date Time Temp Pulse Resp B/P (MAP) Pulse Ox O2 Delivery O2 Flow Rate FiO2 10/17/18 04:01 97.7 85 18 121/78 (92) 98 10/17/18 04:00 85 10/17/18 04:00 79 10/17/18 00:02 98.2 77 20 124/70 (88) 98 10/17/18 00:00 81 10/17/18 00:00 77 10/16/18 21:51 98.0 10/16/18 21:00 Room Air 10/16/18 20:00 103 10/16/18 20:00 98.0 88 20 130/77 (94) 98 10/16/18 20:00 88 10/16/18 16:00 97.5 87 20 121/71 (88) 87 10/16/18 15:56 75 10/16/18 12:00 85 10/16/18 12:00 98.0 89 20 124/90 (101) 98 89 10/16/18 09:00 Room Air Intake and Output 10/16/18 10/17/18 18:59 06:59 Intake Total 281 ml 1660 ml Output Total 1800 ml 201 ml Balance -1519 ml 1459 ml Intake Oral 760 ml IV Total 281 ml 900 ml Output Urine Total 1800 ml 200 ml Emesis 1 ml # Voids 4 Laboratory Tests 10/16/18 10:06: Prothrombin Time 10.1, Prothromb Time International Ratio 0.9, Fibrinogen 269 10/17/18 05:00: White Blood Count 2.9L, Red Blood Count 3.77L, Hemoglobin 11.6L, Hematocrit 34.1L, Mean Corpuscular Volume 90, Mean Corpuscular Hemoglobin 30.8, Mean Corpuscular Hemoglobin Concent 34.1, Red Cell Distribution Width 10.9L, Platelet Count 50L, Mean Platelet Volume 6.8, Neutrophils (%) (Auto) , Lymphocytes (%) (Auto) , Monocytes (%) (Auto) , Eosinophils (%) (Auto) , Basophils (%) (Auto) , Neutrophils % (Manual) [Pending], Lymphocytes % (Manual) [Pending], Platelet Estimate [Pending], Platelet Morphology [Pending], Sodium Level 139, Potassium Level 4.0, Chloride Level 102, Carbon Dioxide Level 29, Anion Gap 8, Blood Urea Nitrogen 8, Creatinine 0.6, Estimat Glomerular Filtration Rate > 60, Glucose Level 104, Calcium Level 8.7, Total Bilirubin 0.9 , Aspartate Amino Transf (AST/SGOT) 91H, Alanine Aminotransferase (ALT/SGPT) 78 , Alkaline Phosphatase 87, Total Protein 6.5, Albumin 3.9, Globulin 2.6, Albumin /Globulin Ratio 1.5, Lipase 673H Height (Feet): 5 Height (Inches): 9.00 Weight (Pounds): 122 General Appearance: alert EENT: normal ENT inspection Neck: supple Cardiovascular: normal rate Respiratory/Chest: decreased breath sounds Abdomen: normal bowel sounds, non tender, soft Extremities: non-tender Eliseo Rodgers MD Oct 17, 2018 08:08
[2018-10-17] MEDS ORDERED: chlordiazePOXIDE 25mg Cap ORAL PRN (08:15)
[2018-10-17] MEDS: Docusate 100mg cap ORAL SCH ×2 (09:10→20:33)
[2018-10-17] MEDS: Thiamine 100mg tab ORAL SCH (09:11)
[2018-10-17] MEDS: LORazepam Inj 2mg/ml 1ml IV PRN ×4 (09:11→23:26)
--- NOTE | 2018-10-17 09:40 | NUR ---
NURSE NOTES: Pt. getting out of bed without seeking help. unstable. Reminder given to use call light and get help.
--- NOTE | 2018-10-17 10:02 | Hematology/Onc Progress Note ---
Assessment/Plan Assessment/Plan Assessment and Recs: # Pancytopenia likely due to ETOh abuse and ETOh withdrawal, however this is acute in onset, would be expected to be much more chronic, in addition has HIV+ + on reflex, needs id eval --> us of the abd shows fatty liver --> hep and hiv are both negative --> no e/o dic --> s/p banana bag --> plt 86-->40k-->50k --> hgb 12.1-->11.5-->11.6 --> wbc 7-->2.7 --> neupogen anc <1500 --> needs ID eval for HIV # Acute pancreatitis --> Cont mIVF with D5 1/2NS with KCL --> Ativan 2mg IV PRN if CIMA >8 --> pain control # Transaminitis is likely due to liver disease --> imaging of the abd has been ordered --> r/o cbd obst # PCM - likely due to etoh abuse --> recommend improvement of oral intake --> etoh cessation Greatly appreciate consultation! Subjective Allergies: Coded Allergies: PENICILLINS (Verified Allergy, Unknown, 10/14/18) Subjective 10/17: no events, no f/c, plt is better, HIV was++, needs ID f/u Objective Objective Current Medications Medications (Trade) Dose Ordered Sig/Lala Route PRN Reason Start Time Stop Time Status Last Admin Dose Admin Acetaminophen (Tylenol) 650 mg Q4H PRN ORAL Mild Pain (Pain Scale 1-3) 10/14/18 19:00 11/13/18 18:59 Bisacodyl (Dulcolax) 10 mg HSPRN PRN RECTAL Constipation 10/14/18 19:00 11/13/18 18:59 Chlordiazepoxide (Librium) 25 mg Q6H PRN ORAL Agitation 10/17/18 08:15 10/24/18 08:14 Chlordiazepoxide (Librium) 50 mg Q6HR ORAL 10/15/18 12:00 10/22/18 11:59 10/17/18 05:49 Dextrose (Dextrose 50%) 25 ml Q30M PRN IV Hypoglycemia 10/14/18 19:00 11/13/18 18:59 Dextrose (Dextrose 50%) 50 ml Q30M PRN IV Hypoglycemia 10/14/18 19:00 11/13/18 18:59 Dextrose/ Electrolytes 1,000 ml @ 75 mls/hr [id number] IV 10/14/18 21:00 11/13/18 20:59 10/17/18 02:45 Diphenhydramine HCl (Benadryl) 25 mg Q6H PRN ORAL Itching/Pruritis 10/14/18 19:00 11/13/18 18:59 Docusate Sodium (Colace) 100 mg EVERY 12 HOURS ORAL 10/14/18 21:00 11/13/18 20:59 10/17/18 09:10 Famotidine (Pepcid) 40 mg DAILY ORAL 10/15/18 09:00 11/14/18 08:59 10/17/18 09:11 Hydromorphone HCl (Dilaudid) 0.5 mg Q6H PRN IVP moderate pain 10/14/18 21:15 10/21/18 21:14 10/15/18 21:56 Hydromorphone HCl (Dilaudid) 1 mg Q6H PRN IVP SEVERE PAIN 10/14/18 21:15 10/21/18 21:14 10/17/18 05:49 Lorazepam (Ativan 2mg/ml 1ml) 2 mg Q3H PRN IV ALCOHOL WITHDRAWAL 10/15/18 08:00 10/22/18 07:59 10/17/18 09:11 Ondansetron HCl (Zofran) 4 mg Q6H PRN IVP Nausea & Vomiting 10/14/18 19:00 11/13/18 18:59 10/17/18 04:48 Oxycodone HCl (Roxicodone) 5 mg Q4H PRN ORAL Breakthrough Pain 10/14/18 19:00 10/21/18 18:59 10/15/18 02:21 Risperidone (RisperDAL) 1 mg BEDTIME ORAL 10/17/18 21:00 11/16/18 20:59 Thiamine HCl (Vitamin B1) 100 mg DAILY ORAL 10/17/18 09:00 11/16/18 08:59 10/17/18 09:11 Last 24 Hour Vital Signs Date Time Temp Pulse Resp B/P (MAP) Pulse Ox O2 Delivery O2 Flow Rate FiO2 10/17/18 08:00 98.4 94 16 122/77 (92) 98 10/17/18 04:01 97.7 85 18 121/78 (92) 98 10/17/18 04:00 85 10/17/18 04:00 79 10/17/18 00:02 98.2 77 20 124/70 (88) 98 10/17/18 00:00 81 10/17/18 00:00 77 10/16/18 21:51 98.0 10/16/18 21:00 Room Air 10/16/18 20:00 103 10/16/18 20:00 98.0 88 20 130/77 (94) 98 10/16/18 20:00 88 10/16/18 16:00 97.5 87 20 121/71 (88) 87 10/16/18 15:56 75 10/16/18 12:00 85 10/16/18 12:00 98.0 89 20 124/90 (101) 98 89 10/16/18 09:00 Room Air 10/16/18 08:00 81 10/16/18 08:00 98.2 70 22 124/81 (95) 98 70 10/16/18 04:00 98.2 77 18 127/78 (94) 99 77 10/16/18 04:00 80 10/16/18 00:00 79 10/16/18 00:00 98.1 84 20 136/82 (100) 98 84 10/15/18 21:00 Room Air 10/15/18 20:00 93 10/15/18 20:00 98.2 96 18 133/76 (95) 97 96 10/15/18 16:30 98.7 85 19 118/71 (87) 97 85 10/15/18 16:00 98.4 104 19 124/71 (88) 96 104 10/15/18 16:00 87 10/15/18 12:00 98.1 93 18 112/63 (79) 95 10/15/18 12:00 95 Intake and Output 10/16/18 10/17/18 18:59 06:59 Intake Total 281 ml 1660 ml Output Total 1800 ml 201 ml Balance -1519 ml 1459 ml Intake Oral 760 ml IV Total 281 ml 900 ml Output Urine Total 1800 ml 200 ml Emesis 1 ml # Voids 4 Labs Test 10/14/18 12:20 10/14/18 12:55 10/15/18 06:19 10/16/18 00:00 White Blood Count 6.9 K/UL (4.8-10.8) 5.3 K/UL (4.8-10.8) Red Blood Count 5.08 M/UL (4.70-6.10) 3.91 M/UL (4.70-6.10) Hemoglobin 15.5 G/DL (14.2-18.0) 12.1 G/DL (14.2-18.0) Hematocrit 46.3 % (42.0-52.0) 35.6 % (42.0-52.0) Mean Corpuscular Volume 91 FL (80-99) 91 FL (80-99) Mean Corpuscular Hemoglobin 30.5 PG (27.0-31.0) 30.9 PG (27.0-31.0) Mean Corpuscular Hemoglobin Concent 33.5 G/DL (32.0-36.0) 33.9 G/DL (32.0-36.0) Red Cell Distribution Width 11.3 % (11.6-14.8) 11.5 % (11.6-14.8) Platelet Count 86 K/UL (150-450) 48 K/UL (150-450) Mean Platelet Volume 6.0 FL (6.5-10.1) 5.5 FL (6.5-10.1) Neutrophils (%) (Auto) % (45.0-75.0) % (45.0-75.0) Lymphocytes (%) (Auto) % (20.0-45.0) % (20.0-45.0) Monocytes (%) (Auto) % (1.0-10.0) % (1.0-10.0) Eosinophils (%) (Auto) % (0.0-3.0) % (0.0-3.0) Basophils (%) (Auto) % (0.0-2.0) % (0.0-2.0) Differential Total Cells Counted 100 100 Neutrophils % (Manual) 83 % (45-75) 64 % (45-75) Lymphocytes % (Manual) 10 % (20-45) 29 % (20-45) Monocytes % (Manual) 6 % (1-10) 5 % (1-10) Eosinophils % (Manual) 0 % (0-3) 0 % (0-3) Basophils % (Manual) 1 % (0-2) 2 % (0-2) Band Neutrophils 0 % (0-8) 0 % (0-8) Platelet Estimate Decreased Decreased Platelet Morphology Normal Normal Red Blood Cell Morphology Normal Normal Sodium Level 139 MMOL/L (136-145) 140 MMOL/L (136-145) Potassium Level 3.7 MMOL/L (3.5-5.1) 3.4 MMOL/L (3.5-5.1) Chloride Level 95 MMOL/L (98-107) 101 MMOL/L (98-107) Carbon Dioxide Level 21 MMOL/L (21-32) 29 MMOL/L (21-32) Anion Gap 23 mmol/L (5-15) 10 mmol/L (5-15) Blood Urea Nitrogen 15 mg/dL (7-18) 9 mg/dL (7-18) Creatinine 0.8 MG/DL (0.55-1.30) 0.7 MG/DL (0.55-1.30) Estimat Glomerular Filtration Rate > 60 mL/min (>60) > 60 mL/min (>60) Glucose Level 176 MG/DL (74-106) 102 MG/DL (74-106) Calcium Level 9.0 MG/DL (8.5-10.1) 8.2 MG/DL (8.5-10.1) Phosphorus Level 4.5 MG/DL (2.5-4.9) Magnesium Level 1.9 MG/DL (1.8-2.4) Total Bilirubin 1.5 MG/DL (0.2-1.0) 1.3 MG/DL (0.2-1.0) Direct Bilirubin 0.4 MG/DL (0.0-0.3) 0.3 MG/DL (0.0-0.3) Aspartate Amino Transf (AST/SGOT) 218 U/L (15-37) 193 U/L (15-37) Alanine Aminotransferase (ALT/SGPT) 140 U/L (12-78) 110 U/L (12-78) Alkaline Phosphatase 116 U/L (46-116) 84 U/L (46-116) Total Creatine Kinase 711 U/L (26-308) 443 U/L (26-308) Total Protein 8.3 G/DL (6.4-8.2) 6.6 G/DL (6.4-8.2) Albumin 4.7 G/DL (3.4-5.0) 4.2 G/DL (3.4-5.0) Globulin 3.6 g/dL 2.4 g/dL Albumin/Globulin Ratio 1.3 (1.0-2.7) 1.7 (1.0-2.7) Salicylates Level 1.3 ug/mL (2.8-20) Acetaminophen Level < 2 MCG/ML (10-30) Serum Alcohol 473 mg/dL Urine Color Pale yellow Urine Appearance Slightly cloudy Urine pH 6 (4.5-8.0) Urine Specific [place] 1.010 (1.005-1.035) Urine Protein 2+ (NEGATIVE) Urine Glucose (UA) Negative (NEGATIVE) Urine Ketones 3+ (NEGATIVE) Urine Blood 5+ (NEGATIVE) Urine Nitrite Negative (NEGATIVE) Urine Bilirubin Negative (NEGATIVE) Urine Urobilinogen Normal MG/DL (0.0-1.0) Urine Leukocyte Esterase Negative (NEGATIVE) Urine RBC 5-10 /HPF (0 - 0) Urine WBC 0-2 /HPF (0 - 0) Urine Squamous Epithelial Cells Few /LPF (NONE/OCC) Urine Bacteria Occasional /HPF (NONE) Urine Granular Casts 0-2 /LPF (NONE) Urine Fine Granular Casts 0-2 /LPF (NONE) Urine Opiates Screen Negative (NEGATIVE) Urine Barbiturates Screen Negative (NEGATIVE) Phencyclidine (PCP) Screen Negative (NEGATIVE) Urine Amphetamines Screen Negative (NEGATIVE) Urine Benzodiazepines Screen Negative (NEGATIVE) Urine Cocaine Screen Negative (NEGATIVE) Urine Marijuana (THC) Screen Negative (NEGATIVE) Lipase 775 U/L (73-393) Test 10/16/18 05:30 10/16/18 10:06 10/17/18 05:00 White Blood Count 2.7 K/UL (4.8-10.8) 2.9 K/UL (4.8-10.8) Red Blood Count 3.68 M/UL (4.70-6.10) 3.77 M/UL (4.70-6.10) Hemoglobin 11.5 G/DL (14.2-18.0) 11.6 G/DL (14.2-18.0) Hematocrit 33.6 % (42.0-52.0) 34.1 % (42.0-52.0) Mean Corpuscular Volume 91 FL (80-99) 90 FL (80-99) Mean Corpuscular Hemoglobin 31.2 PG (27.0-31.0) 30.8 PG (27.0-31.0) Mean Corpuscular Hemoglobin Concent 34.1 G/DL (32.0-36.0) 34.1 G/DL (32.0-36.0) Red Cell Distribution Width 11.0 % (11.6-14.8) 10.9 % (11.6-14.8) Platelet Count 40 K/UL (150-450) 50 K/UL (150-450) Mean Platelet Volume 7.4 FL (6.5-10.1) 6.8 FL (6.5-10.1) Neutrophils (%) (Auto) % (45.0-75.0) % (45.0-75.0) Lymphocytes (%) (Auto) % (20.0-45.0) % (20.0-45.0) Monocytes (%) (Auto) % (1.0-10.0) % (1.0-10.0) Eosinophils (%) (Auto) % (0.0-3.0) % (0.0-3.0) Basophils (%) (Auto) % (0.0-2.0) % (0.0-2.0) Differential Total Cells Counted 100 100 Neutrophils % (Manual) 57 % (45-75) 49 % (45-75) Lymphocytes % (Manual) 34 % (20-45) 41 % (20-45) Monocytes % (Manual) 7 % (1-10) 4 % (1-10) Eosinophils % (Manual) 2 % (0-3) 4 % (0-3) Basophils % (Manual) 0 % (0-2) 1 % (0-2) Band Neutrophils 0 % (0-8) 1 % (0-8) Other Cell Type Pathologist review Platelet Estimate Decreased Decreased Platelet Morphology Normal Normal Red Blood Cell Morphology Normal Normal Reticulocyte Count 0.5 % (0.5-2.0) Sodium Level 139 MMOL/L (136-145) 139 MMOL/L (136-145) Potassium Level 3.3 MMOL/L (3.5-5.1) 4.0 MMOL/L (3.5-5.1) Chloride Level 101 MMOL/L (98-107) 102 MMOL/L (98-107) Carbon Dioxide Level 32 MMOL/L (21-32) 29 MMOL/L (21-32) Anion Gap 7 mmol/L (5-15) 8 mmol/L (5-15) Blood Urea Nitrogen 6 mg/dL (7-18) 8 mg/dL (7-18) Creatinine 0.5 MG/DL (0.55-1.30) 0.6 MG/DL (0.55-1.30) Estimat Glomerular Filtration Rate > 60 mL/min (>60) > 60 mL/min (>60) Glucose Level 92 MG/DL (74-106) 104 MG/DL (74-106) Calcium Level 8.5 MG/DL (8.5-10.1) 8.7 MG/DL (8.5-10.1) Iron Level 42 ug/dL (50-175) Total Iron Binding Capacity 165 ug/dL (250-450) Percent Iron Saturation 25 % (15-50) Unsaturated Iron Binding 123 ug/dL (112-346) Ferritin 1282 NG/ML (8-388) Total Bilirubin 1.7 MG/DL (0.2-1.0) 0.9 MG/DL (0.2-1.0) Direct Bilirubin 0.4 MG/DL (0.0-0.3) Aspartate Amino Transf (AST/SGOT) 134 U/L (15-37) 91 U/L (15-37) Alanine Aminotransferase (ALT/SGPT) 95 U/L (12-78) 78 U/L (12-78) Alkaline Phosphatase 86 U/L (46-116) 87 U/L (46-116) Lactate Dehydrogenase 313 U/L (81-234) Total Creatine Kinase 237 U/L (26-308) Total Protein 6.2 G/DL (6.4-8.2) 6.5 G/DL (6.4-8.2) Albumin 3.7 G/DL (3.4-5.0) 3.9 G/DL (3.4-5.0) Globulin 2.5 g/dL 2.6 g/dL Albumin/Globulin Ratio 1.5 (1.0-2.7) 1.5 (1.0-2.7) Triglycerides Level 26 MG/DL (30-150) Cholesterol Level 165 MG/DL (< 200) LDL Cholesterol 61 mg/dL (<100) HDL Cholesterol 94 MG/DL (40-60) Cholesterol/HDL Ratio 1.8 (3.3-4.4) Lipase 1378 U/L (73-393) 673 U/L (73-393) Vitamin B12 Level 702 PG/ML (193-986) Folate 20.6 NG/ML (8.6-58.9) Hepatitis A IgM Antibody Negative (Negative) Hepatitis B Surface Antigen Negative (Negative) Hepatitis B Core IgM Antibody Negative (Negative) Hepatitis C Antibody <0.1 s/co ratio HIV (1&2) Antibody Rapid Preliminary positive Prothrombin Time 10.1 SEC (9.30-11.50) Prothromb Time International Ratio 0.9 (0.9-1.1) Fibrinogen 269 mg/dL (200-400) Height (Feet): 5 Height (Inches): 9.00 Weight (Pounds): 122 Objective General appearance:~~alert, not cooperative, no distress HEENT: NCAT, Teeth and gums normal Pulm: CTAB, no cwr CV: RRR, no mgr Abd: soft, nt, nd, bowel sounds normal Ext: no cce Pulses:2+ and symmetric Skin: Skin color, texture, turgor normal Neurologic:Grossly normal Avtar Allen MD Oct 17, 2018 10:02
--- NOTE | 2018-10-17 10:39 | NUR ---
NURSE NOTES: Found Pt. standing at bedside. Helped to restroom. Back in bed safely.
--- NOTE | 2018-10-17 11:00 | NUR ---
NURSE NOTES: Helped Pt. to bedside chair. Call light placed next to Pt. Reminder given to use call light before getting up. So far uncooperative/forgetful.
--- NOTE | 2018-10-17 11:28 | Surgery Progress Note ---
Surgery Progress Note Subjective Symptoms: pain same, tolerating diet, voiding well, passing flatus Additional Comments still with tremor states doing okay but still froylan no n/v/f/c lipase improved Objective Last 24 Hour Vital Signs Date Time Temp Pulse Resp B/P (MAP) Pulse Ox O2 Delivery O2 Flow Rate FiO2 10/17/18 09:00 Room Air 10/17/18 08:00 98.4 94 16 122/77 (92) 98 10/17/18 08:00 77 10/17/18 04:01 97.7 85 18 121/78 (92) 98 10/17/18 04:00 85 10/17/18 04:00 79 10/17/18 00:02 98.2 77 20 124/70 (88) 98 10/17/18 00:00 81 10/17/18 00:00 77 10/16/18 21:51 98.0 10/16/18 21:00 Room Air 10/16/18 20:00 103 10/16/18 20:00 98.0 88 20 130/77 (94) 98 10/16/18 20:00 88 10/16/18 16:00 97.5 87 20 121/71 (88) 87 10/16/18 15:56 75 10/16/18 12:00 85 10/16/18 12:00 98.0 89 20 124/90 (101) 98 89 I&O Intake and Output 10/16/18 10/17/18 18:59 06:59 Intake Total 281 ml 1660 ml Output Total 1800 ml 201 ml Balance -1519 ml 1459 ml Intake Oral 760 ml IV Total 281 ml 900 ml Output Urine Total 1800 ml 200 ml Emesis 1 ml # Voids 4 Cardiovascular: RSR Respiratory: clear Abdomen: soft, flat, non-tender, present bowel sounds, non-distended Extremities: no edema, no tenderness, no cyanosis Laboratory Tests Test 10/17/18 05:00 White Blood Count 2.9 K/UL (4.8-10.8) L Red Blood Count 3.77 M/UL (4.70-6.10) L Hemoglobin 11.6 G/DL (14.2-18.0) L Hematocrit 34.1 % (42.0-52.0) L Mean Corpuscular Volume 90 FL (80-99) Mean Corpuscular Hemoglobin 30.8 PG (27.0-31.0) Mean Corpuscular Hemoglobin Concent 34.1 G/DL (32.0-36.0) Red Cell Distribution Width 10.9 % (11.6-14.8) L Platelet Count 50 K/UL (150-450) L Mean Platelet Volume 6.8 FL (6.5-10.1) Neutrophils (%) (Auto) % (45.0-75.0) Lymphocytes (%) (Auto) % (20.0-45.0) Monocytes (%) (Auto) % (1.0-10.0) Eosinophils (%) (Auto) % (0.0-3.0) Basophils (%) (Auto) % (0.0-2.0) Differential Total Cells Counted 100 Neutrophils % (Manual) 49 % (45-75) Lymphocytes % (Manual) 41 % (20-45) Monocytes % (Manual) 4 % (1-10) Eosinophils % (Manual) 4 % (0-3) H Basophils % (Manual) 1 % (0-2) Band Neutrophils 1 % (0-8) Platelet Estimate Decreased L Platelet Morphology Normal Red Blood Cell Morphology Normal Sodium Level 139 MMOL/L (136-145) Potassium Level 4.0 MMOL/L (3.5-5.1) Chloride Level 102 MMOL/L (98-107) Carbon Dioxide Level 29 MMOL/L (21-32) Anion Gap 8 mmol/L (5-15) Blood Urea Nitrogen 8 mg/dL (7-18) Creatinine 0.6 MG/DL (0.55-1.30) Estimat Glomerular Filtration Rate > 60 mL/min (>60) Glucose Level 104 MG/DL (74-106) Calcium Level 8.7 MG/DL (8.5-10.1) Total Bilirubin 0.9 MG/DL (0.2-1.0) Aspartate Amino Transf (AST/SGOT) 91 U/L (15-37) H Alanine Aminotransferase (ALT/SGPT) 78 U/L (12-78) Alkaline Phosphatase 87 U/L (46-116) Total Protein 6.5 G/DL (6.4-8.2) Albumin 3.9 G/DL (3.4-5.0) Globulin 2.6 g/dL Albumin/Globulin Ratio 1.5 (1.0-2.7) Lipase 673 U/L (73-393) H Plan Problems: (1) Alcohol withdrawal (2) Acute alcohol intoxication (3) Abdominal pain Assessment & Plan: 33-year-old male with cramping abdominal pain generalized intermittent and noted most when he is not drinking. Patient currently in withdrawal and noted to have pancreatitis. Labs improving. Patient under current treatment for withdrawal. Likely etiology of pancreatitis is EtOH abuse. Abdominal exam is fairly benign and unlikely to have other abdominal etiology at this time. Continue with current care and management. No acute surgical intervention recommended. slowly improving withdrawal improved We will follow with examinations and recommendations. Thank you for allowing me to participate in patient's care will follow along with you (4) Pancreatitis Cameron Salcedo Oct 17, 2018 11:28
--- NOTE | 2018-10-17 12:07 | Infectious Diseases Prog Note ---
Assessment/Plan Assessment/Plan Full consult to follow: A) 1) HIV - off anti-retroviral Triumeq for at least 2 weeks (medication not available at [facility]) 2) etoh withdrawal and pancreatitis 3) allergies - pcn P) 1) check cd4 and viral load 2) patient cannot get Triumeq from home 3) continue tx per primary and consultants 4) thank you Subjective Allergies: Coded Allergies: PENICILLINS (Verified Allergy, Unknown, 10/14/18) Objective Vital Signs Last 24 Hour Vital Signs Date Time Temp Pulse Resp B/P (MAP) Pulse Ox O2 Delivery O2 Flow Rate FiO2 10/17/18 09:00 Room Air 10/17/18 08:00 98.4 94 16 122/77 (92) 98 10/17/18 08:00 77 10/17/18 04:01 97.7 85 18 121/78 (92) 98 10/17/18 04:00 85 10/17/18 04:00 79 10/17/18 00:02 98.2 77 20 124/70 (88) 98 10/17/18 00:00 81 10/17/18 00:00 77 10/16/18 21:51 98.0 10/16/18 21:00 Room Air 10/16/18 20:00 103 10/16/18 20:00 98.0 88 20 130/77 (94) 98 10/16/18 20:00 88 10/16/18 16:00 97.5 87 20 121/71 (88) 87 10/16/18 15:56 75 Height (Feet): 5 Height (Inches): 9.00 Weight (Pounds): 122 Laboratory Tests Test 10/17/18 05:00 White Blood Count 2.9 K/UL (4.8-10.8) L Red Blood Count 3.77 M/UL (4.70-6.10) L Hemoglobin 11.6 G/DL (14.2-18.0) L Hematocrit 34.1 % (42.0-52.0) L Mean Corpuscular Volume 90 FL (80-99) Mean Corpuscular Hemoglobin 30.8 PG (27.0-31.0) Mean Corpuscular Hemoglobin Concent 34.1 G/DL (32.0-36.0) Red Cell Distribution Width 10.9 % (11.6-14.8) L Platelet Count 50 K/UL (150-450) L Mean Platelet Volume 6.8 FL (6.5-10.1) Neutrophils (%) (Auto) % (45.0-75.0) Lymphocytes (%) (Auto) % (20.0-45.0) Monocytes (%) (Auto) % (1.0-10.0) Eosinophils (%) (Auto) % (0.0-3.0) Basophils (%) (Auto) % (0.0-2.0) Differential Total Cells Counted 100 Neutrophils % (Manual) 49 % (45-75) Lymphocytes % (Manual) 41 % (20-45) Monocytes % (Manual) 4 % (1-10) Eosinophils % (Manual) 4 % (0-3) H Basophils % (Manual) 1 % (0-2) Band Neutrophils 1 % (0-8) Platelet Estimate Decreased L Platelet Morphology Normal Red Blood Cell Morphology Normal Sodium Level 139 MMOL/L (136-145) Potassium Level 4.0 MMOL/L (3.5-5.1) Chloride Level 102 MMOL/L (98-107) Carbon Dioxide Level 29 MMOL/L (21-32) Anion Gap 8 mmol/L (5-15) Blood Urea Nitrogen 8 mg/dL (7-18) Creatinine 0.6 MG/DL (0.55-1.30) Estimat Glomerular Filtration Rate > 60 mL/min (>60) Glucose Level 104 MG/DL (74-106) Calcium Level 8.7 MG/DL (8.5-10.1) Total Bilirubin 0.9 MG/DL (0.2-1.0) Aspartate Amino Transf (AST/SGOT) 91 U/L (15-37) H Alanine Aminotransferase (ALT/SGPT) 78 U/L (12-78) Alkaline Phosphatase 87 U/L (46-116) Total Protein 6.5 G/DL (6.4-8.2) Albumin 3.9 G/DL (3.4-5.0) Globulin 2.6 g/dL Albumin/Globulin Ratio 1.5 (1.0-2.7) Lipase 673 U/L (73-393) H Current Medications Medications (Trade) Dose Ordered Sig/Lala Route PRN Reason Start Time Stop Time Status Last Admin Dose Admin Acetaminophen (Tylenol) 650 mg Q4H PRN ORAL Mild Pain (Pain Scale 1-3) 10/14/18 19:00 11/13/18 18:59 Bisacodyl (Dulcolax) 10 mg HSPRN PRN RECTAL Constipation 10/14/18 19:00 11/13/18 18:59 Chlordiazepoxide (Librium) 25 mg Q6H PRN ORAL Agitation 10/17/18 08:15 10/24/18 08:14 Chlordiazepoxide (Librium) 50 mg Q6HR ORAL 10/15/18 12:00 10/22/18 11:59 10/17/18 11:52 Dextrose (Dextrose 50%) 25 ml Q30M PRN IV Hypoglycemia 10/14/18 19:00 11/13/18 18:59 Dextrose (Dextrose 50%) 50 ml Q30M PRN IV Hypoglycemia 10/14/18 19:00 11/13/18 18:59 Dextrose/ Electrolytes 1,000 ml @ 75 mls/hr [id number] IV 10/14/18 21:00 11/13/18 20:59 10/17/18 02:45 Diphenhydramine HCl (Benadryl) 25 mg Q6H PRN ORAL Itching/Pruritis 10/14/18 19:00 11/13/18 18:59 Docusate Sodium (Colace) 100 mg EVERY 12 HOURS ORAL 10/14/18 21:00 11/13/18 20:59 10/17/18 09:10 Famotidine (Pepcid) 40 mg DAILY ORAL 10/15/18 09:00 11/14/18 08:59 10/17/18 09:11 Hydromorphone HCl (Dilaudid) 0.5 mg Q6H PRN IVP moderate pain 10/14/18 21:15 10/21/18 21:14 10/15/18 21:56 Hydromorphone HCl (Dilaudid) 1 mg Q6H PRN IVP SEVERE PAIN 10/14/18 21:15 10/21/18 21:14 10/17/18 05:49 Lorazepam (Ativan 2mg/ml 1ml) 2 mg Q3H PRN IV ALCOHOL WITHDRAWAL 10/15/18 08:00 10/22/18 07:59 10/17/18 09:11 Ondansetron HCl (Zofran) 4 mg Q6H PRN IVP Nausea & Vomiting 10/14/18 19:00 11/13/18 18:59 10/17/18 04:48 Oxycodone HCl (Roxicodone) 5 mg Q4H PRN ORAL Breakthrough Pain 10/14/18 19:00 10/21/18 18:59 10/15/18 02:21 Risperidone (RisperDAL) 1 mg BEDTIME ORAL 10/17/18 21:00 11/16/18 20:59 Thiamine HCl (Vitamin B1) 100 mg DAILY ORAL 10/17/18 09:00 11/16/18 08:59 10/17/18 09:11 Delia Tellez MD Oct 17, 2018 12:07
--- NOTE | 2018-10-17 12:42 | NUR ---
CASE MANAGEMENT: REVIEW 10/17/2018 SI:ETOH WITHDRAWAL T 98.4 HR 94 RR 16 B/P 122/77 SATS 98% ON RA WBC 2.9 AST 91 LIPASE 673 IS: IVF @ 75 mL/HR PEPCID PO QD MULTIVITAMINS IV @ 125 mL/HR THIAMINE IV Q24H LIBRIUM PO Q6H TELE STATUS DCP: PATIENT TO BE DISCHARGED TO HOME ONCE MEDICALLY CLEARED.
--- NOTE | 2018-10-17 19:19 | NUR ---
HAND-OFF: Report given to ROLDAN Otero. Patient in stable condition.
--- NOTE | 2018-10-17 19:52 | NUR ---
NURSE NOTES: Pt received from ROLDAN Kauffman alert and oriented x4 with moderate anxiety. Pt has auditory hallucinations states that he hears loud banging noises and has been hearing them "within the last couple hours". Beads of sweat apparent on forehead, with complaints of nausea but no vomiting. Administered 2 mg Ativan PRN and Zofran PRN. IV site asymptomatic and patent R hand 22g saline lock. Bed in lowest position, call light and belongings within reach.
--- NOTE | 2018-10-17 20:04 | Neurology Progress Note ---
Interim History Interim History ROS Limited/Unobtainable: Yes Interim History tremors improved alert awake, oriented x 2 Objective Physical Exam Last Vital Signs Date Time Temp Pulse Resp B/P (MAP) Pulse Ox O2 Delivery O2 Flow Rate FiO2 10/17/18 16:00 98.2 83 20 117/79 (92) 98 10/17/18 09:00 Room Air Laboratory Tests Test 10/17/18 05:00 10/17/18 12:37 White Blood Count 2.9 K/UL (4.8-10.8) L Red Blood Count 3.77 M/UL (4.70-6.10) L Hemoglobin 11.6 G/DL (14.2-18.0) L Hematocrit 34.1 % (42.0-52.0) L Mean Corpuscular Volume 90 FL (80-99) Mean Corpuscular Hemoglobin 30.8 PG (27.0-31.0) Mean Corpuscular Hemoglobin Concent 34.1 G/DL (32.0-36.0) Red Cell Distribution Width 10.9 % (11.6-14.8) L Platelet Count 50 K/UL (150-450) L Mean Platelet Volume 6.8 FL (6.5-10.1) Neutrophils (%) (Auto) % (45.0-75.0) Lymphocytes (%) (Auto) % (20.0-45.0) Monocytes (%) (Auto) % (1.0-10.0) Eosinophils (%) (Auto) % (0.0-3.0) Basophils (%) (Auto) % (0.0-2.0) Differential Total Cells Counted 100 Neutrophils % (Manual) 49 % (45-75) Lymphocytes % (Manual) 41 % (20-45) Monocytes % (Manual) 4 % (1-10) Eosinophils % (Manual) 4 % (0-3) H Basophils % (Manual) 1 % (0-2) Band Neutrophils 1 % (0-8) Platelet Estimate Decreased L Platelet Morphology Normal Red Blood Cell Morphology Normal Sodium Level 139 MMOL/L (136-145) Potassium Level 4.0 MMOL/L (3.5-5.1) Chloride Level 102 MMOL/L (98-107) Carbon Dioxide Level 29 MMOL/L (21-32) Anion Gap 8 mmol/L (5-15) Blood Urea Nitrogen 8 mg/dL (7-18) Creatinine 0.6 MG/DL (0.55-1.30) Estimat Glomerular Filtration Rate > 60 mL/min (>60) Glucose Level 104 MG/DL (74-106) Calcium Level 8.7 MG/DL (8.5-10.1) Total Bilirubin 0.9 MG/DL (0.2-1.0) Aspartate Amino Transf (AST/SGOT) 91 U/L (15-37) H Alanine Aminotransferase (ALT/SGPT) 78 U/L (12-78) Alkaline Phosphatase 87 U/L (46-116) Total Protein 6.5 G/DL (6.4-8.2) Albumin 3.9 G/DL (3.4-5.0) Globulin 2.6 g/dL Albumin/Globulin Ratio 1.5 (1.0-2.7) Lipase 673 U/L (73-393) H HIV-1 RNA (PCR) log10 Value Pending HIV-1 RNA Ultraquantitative (PCR) Pending Head: normocophalic Neck: no rigidity EENT: benign Neurologic Exam Mental Status: other Objective alert, oriented x 2, mild postural tremors ambulating Impression/Recommendations Problems: (1) Alcohol withdrawal (2) Acute alcohol intoxication Status: unchanged Diagnostic Impression acute toxic encephalopathy ct brain wo hemorrhage monitor for withdrawal Yonathan Agrawal MD Oct 17, 2018 20:04
--- NOTE | 2018-10-17 22:31 | General Progress Note ---
Assessment/Plan Status: unchanged Assessment/Plan: 33 year old male admitted to [facility] w/d and pancreatitis. 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 reflect time of encounter Subjective Date patient seen: Oct 17, 2018 Allergies: Coded Allergies: PENICILLINS (Verified Allergy, Unknown, 10/14/18) Subjective No acute overnight events, symptoms improving, states abdominal pain improved, has no other complaints, hx of HIV on HAART, still requiring ativan for CIWA >8 , tolerating diet Objective Last 24 Hour Vital Signs Date Time Temp Pulse Resp B/P (MAP) Pulse Ox O2 Delivery O2 Flow Rate FiO2 10/17/18 21:00 Room Air 10/17/18 20:00 98.4 98 20 131/85 (100) 98 10/17/18 20:00 97 10/17/18 16:00 98.2 83 20 117/79 (92) 98 10/17/18 16:00 88 10/17/18 12:00 98.2 89 18 113/87 (96) 100 10/17/18 12:00 73 10/17/18 09:00 Room Air 10/17/18 08:00 98.4 94 16 122/77 (92) 98 10/17/18 08:00 77 10/17/18 04:01 97.7 85 18 121/78 (92) 98 10/17/18 04:00 85 10/17/18 04:00 79 10/17/18 00:02 98.2 77 20 124/70 (88) 98 10/17/18 00:00 81 10/17/18 00:00 77 Intake and Output 10/16/18 10/17/18 19:00 07:00 Intake Total 356 ml 1585 ml Output Total 1800 ml 201 ml Balance -1444 ml 1384 ml Intake Oral 760 ml IV Total 356 ml 825 ml Output Urine Total 1800 ml 200 ml Emesis 1 ml # Voids 4 Laboratory Tests 10/17/18 05:00: White Blood Count 2.9L, Red Blood Count 3.77L, Hemoglobin 11.6L, Hematocrit 34.1L, Mean Corpuscular Volume 90, Mean Corpuscular Hemoglobin 30.8, Mean Corpuscular Hemoglobin Concent 34.1, Red Cell Distribution Width 10.9L, Platelet Count 50L, Mean Platelet Volume 6.8, Neutrophils (%) (Auto) , Lymphocytes (%) (Auto) , Monocytes (%) (Auto) , Eosinophils (%) (Auto) , Basophils (%) (Auto) , Differential Total Cells Counted 100, Neutrophils % ( Manual) 49, Lymphocytes % (Manual) 41, Monocytes % (Manual) 4, Eosinophils % ( Manual) 4H, Basophils % (Manual) 1, Band Neutrophils 1, Platelet Estimate DecreasedL, Platelet Morphology Normal, Red Blood Cell Morphology Normal, Sodium Level 139, Potassium Level 4.0, Chloride Level 102, Carbon Dioxide Level 29, Anion Gap 8, Blood Urea Nitrogen 8, Creatinine 0.6, Estimat Glomerular Filtration Rate > 60, Glucose Level 104, Calcium Level 8.7, Total Bilirubin 0.9 , Aspartate Amino Transf (AST/SGOT) 91H, Alanine Aminotransferase (ALT/SGPT) 78 , Alkaline Phosphatase 87, Total Protein 6.5, Albumin 3.9, Globulin 2.6, Albumin /Globulin Ratio 1.5, Lipase 673H 10/17/18 12:37: HIV-1 RNA (PCR) log10 Value [Pending], HIV-1 RNA Ultraquantitative (PCR) [ Pending] Height (Feet): 5 Height (Inches): 9.00 Weight (Pounds): 122 Objective General appearance: alert, cooperative, no distress, appears stated age Head: Normocephalic, without obvious abnormality, atraumatic Eyes: conjunctivae/corneas clear. PERRL, EOM's intact. Fundi benign Throat: Lips, mucosa, and tongue normal. Teeth and gums normal Neck: supple, symmetrical, trachea midline, no adenopathy, thyroid: not enlarged, symmetric, no tenderness/mass/nodules, no carotid bruit and no JVD Lungs: clear to auscultation bilaterally Heart: regular rate and rhythm, S1, S2 normal, no murmur, click, rub or gallop Abdomen: soft, tender to palpation. Bowel sounds normal. No masses, no organomegaly Extremities: extremities normal, atraumatic, no cyanosis or edema Pulses: 2+ and symmetric Skin: Skin color, texture, turgor normal. No rashes or lesions Neurologic: Grossly normal Mariajose Lozano MD Oct 17, 2018 22:31
[2018-10-18] VITALS: BP 122/75
--- NOTE | 2018-10-18 00:10 | NUR ---
NURSE NOTES: Pt anxious, frequently ambulates the room to clean up and rearrange chairs and furniture. RN educated risk for falls to the patient and provided fall risk education, needs further teaching. Bed alarm on, bed in lowest position. Call light and belongings within reach.
[2018-10-18] MEDS: oxyCODONE 5mg IR tab ORAL PRN (00:50)
--- NOTE | 2018-10-18 01:29 | Consultation ---
DATE OF CONSULTATION: 10/17/2018 CONSULTING PHYSICIAN: Vaughn Blancas M.D. HISTORY OF PRESENT ILLNESS: This is a 33-year-old male with a history of alcohol dependence who has been admitted to the hospital for medical stabilization. The patient is presenting with severe anxiety, visual hallucinations. He was tremulous. He has poor appetite. No nausea or vomiting. No headache. His blood pressure was high and he was tachycardic. PAST PSYCHIATRIC HISTORY: Depression and anxiety. PAST MEDICAL HISTORY: Pancreatitis. ALLERGIES: Penicillin. SUBSTANCE ABUSE HISTORY: Significant for alcohol dependence. His urine tox was positive for alcohol. The patient drinks excessive amount of alcohol on a daily basis for the past several years. He stated that he drinks three pints of vodka on a daily basis. He has been in treatment before. MENTAL STATUS EXAMINATION: The patient is alert and oriented to time, self, place, and situation. He is cachectic and thin. Mood is anxious and agitated. Affect is flat. Thought process is concrete. Thought content, no suicidal or homicidal ideation. ASSESSMENT: AXIS I: Alcohol dependence, alcohol withdrawal. AXIS II: Deferred. AXIS III: As above. AXIS IV: Low. AXIS V: 40. PLAN: 1. The patient will be continued on folate and thiamine. 2. Will continue the Librium 50 mg q.i.d. 3. The patient should be given risperidone 1 mg at bedtime for visual hallucination. 4. The patient is to be given. 5. Educated the pt. 6. Discontinue the sitter. Vaughn Blancas M.D. DR: YONATHAN JOB#: [id number] CC: CRYSTAL
--- NOTE | 2018-10-18 03:04 | NUR ---
NURSE NOTES: Pt HR increased up to 149, asymptomatic. RN left message with [facility] who stated that cover MD was Dr. Garcia. Currently awaiting call back.
[2018-10-18 04:00] VITALS: BP 125/86
--- NOTE | 2018-10-18 04:10 | NUR ---
NURSE NOTES: Pt went into SVT (Hr 168), asymptomatic. Left message with [facility].
[2018-10-18] MEDS: chlordiazePOXIDE 25mg Cap ORAL SCH ×2 (05:43→11:35)
[2018-10-18] MEDS: LORazepam Inj 2mg/ml 1ml IV PRN ×2 (05:43→14:41)
[2018-10-18 07:01] LABS: HEMATOCRIT 34.3 % (42.0-52.0); HEMOGLOBIN 11.9 G/DL (14.2-18.0); MEAN CORPUSCULAR VOLUME 90 FL (80-99); PLATELET COUNT 84 K/UL (150-450); RED BLOOD COUNT 3.81 M/UL (4.70-6.10); RED CELL DISTRIBUTION WIDTH 10.7 % (11.6-14.8)
--- NOTE | 2018-10-18 07:15 | NUR ---
HAND-OFF: Report given to ROLDAN Carcamo.
[2018-10-18 07:29] LABS: AMYLASE 46 U/L (25-115)
--- NOTE | 2018-10-18 07:32 | General Progress Note ---
Assessment/Plan Status: unchanged Assessment/Plan: (1) Pancreatitis ICD Codes: K85.90 - Acute pancreatitis without necrosis or infection, unspecified SNOMED: 15024280 (2) Abdominal pain ICD Codes: R10.9 - Unspecified abdominal pain SNOMED: 64420767 (3) Alcohol withdrawal ICD Codes: F10.239 - Alcohol dependence with withdrawal, unspecified SNOMED: 279781403 (4) Acute alcohol intoxication ICD Codes: F10.929 - Alcohol use, unspecified with intoxication, unspecified SNOMED: 13033400, 1579781 (5) Alcoholic hepatitis ICD Codes: K70.10 - Alcoholic hepatitis without ascites (6) HIV SNOMED: 009389623 Status: unchanged Status Narrative Discussed with Dr. Rodgers. Assessment/Plan Clear liquid diet plus IV banana bag>> will advance to low fat Ativan as needed pain mgmt zofran prn H2B follow labs trend LFTs, lipase us>>> fatty liver Subjective ROS Limited/Unobtainable: Yes Allergies: Coded Allergies: PENICILLINS (Verified Allergy, Unknown, 10/14/18) Subjective vomited once Objective Last 24 Hour Vital Signs Date Time Temp Pulse Resp B/P (MAP) Pulse Ox O2 Delivery O2 Flow Rate FiO2 10/18/18 04:00 97.6 114 20 125/86 (99) 98 10/18/18 04:00 86 10/18/18 00:00 141 10/18/18 00:00 98.3 99 20 122/75 (91) 98 10/17/18 21:00 Room Air 10/17/18 20:00 98.4 98 20 131/85 (100) 98 10/17/18 20:00 97 10/17/18 16:00 98.2 83 20 117/79 (92) 98 10/17/18 16:00 88 10/17/18 12:00 98.2 89 18 113/87 (96) 100 10/17/18 12:00 73 10/17/18 09:00 Room Air 10/17/18 08:00 98.4 94 16 122/77 (92) 98 10/17/18 08:00 77 Intake and Output 10/17/18 10/18/18 18:59 06:59 Intake Total 240 ml 100 ml Balance 240 ml 100 ml Intake Oral 240 ml 100 ml # Voids 3 4 Laboratory Tests 10/17/18 12:37: HIV-1 RNA (PCR) log10 Value [Pending], HIV-1 RNA Ultraquantitative (PCR) [ Pending] 10/18/18 06:34: White Blood Count [Pending], Red Blood Count 3.81L, Hemoglobin 11.9L, Hematocrit 34.3L, Mean Corpuscular Volume 90, Mean Corpuscular Hemoglobin 31.2H , Mean Corpuscular Hemoglobin Concent 34.6, Red Cell Distribution Width 10.7L, Platelet Count 84#L, Mean Platelet Volume 7.5, Neutrophils (%) (Auto) , Lymphocytes (%) (Auto) , Monocytes (%) (Auto) , Eosinophils (%) (Auto) , Basophils (%) (Auto) , Neutrophils % (Manual) [Pending], Lymphocytes % (Manual) [Pending], Lymphocytes [Pending], Platelet Estimate [Pending], Platelet Morphology [Pending], Sodium Level [Pending], Potassium Level [Pending], Chloride Level [Pending], Carbon Dioxide Level [Pending], Blood Urea Nitrogen [ Pending], Creatinine [Pending], Estimat Glomerular Filtration Rate [Pending], Glucose Level [Pending], Calcium Level [Pending], Phosphorus Level [Pending], Magnesium Level [Pending], Total Bilirubin [Pending], Aspartate Amino Transf ( AST/SGOT) [Pending], Alanine Aminotransferase (ALT/SGPT) [Pending], Alkaline Phosphatase [Pending], Total Protein [Pending], Albumin [Pending], Globulin [ Pending], Amylase Level [Pending], Lipase [Pending], Percent CD3 Cells [Pending] , Absolute CD3 Count [Pending], Percent CD4 Cells [Pending], Absolute CD4 Count [Pending], T-Lymphocyte CD4/CD8 Ratio [Pending], Percent CD8 Cells [Pending], Absolute CD8 Count [Pending] Height (Feet): 5 Height (Inches): 9.00 Weight (Pounds): 122 General Appearance: no apparent distress EENT: normal ENT inspection Neck: supple Cardiovascular: normal rate Respiratory/Chest: decreased breath sounds Abdomen: normal bowel sounds, non tender, soft Extremities: non-tender Eliseo Rodgers MD Oct 18, 2018 07:32
--- NOTE | 2018-10-18 07:51 | NUR ---
NURSE NOTES: Received report from ROLDAN Otero. Patient in bed resting, no active s/s cardiac, respiratory distress noticed at this time. Patient refuse to be on laboratory monitor, pulled out IV, requesting to sign AMA. Patient awake, alert. When asked patient, patient able to state name, place, situation. Dr. Lozano made aware patient requesting to sign AMA, awaiting for callback. Bed in lowest position ,side rails upx2, call light within reach. Will continue to monitor.
[2018-10-18 07:52] LABS: ALANINE AMINOTRANSFERASE 75 U/L (12-78); ALBUMIN 3.9 G/DL (3.4-5.0); ALBUMIN/GLOBULIN RATIO 1.3 (1.0-2.7); ALKALINE PHOSPHATASE 92 U/L (46-116); ANION GAP 10 mmol/L (5-15); ASPARTATE AMINO TRANSFERASE 73 U/L (15-37); BILIRUBIN,TOTAL 0.7 MG/DL (0.2-1.0); BLOOD UREA NITROGEN 7 mg/dL (7-18); CALCIUM 9.2 MG/DL (8.5-10.1); CARBON DIOXIDE 29 MMOL/L (21-32); CHLORIDE 105 MMOL/L (98-107); CREATININE 0.7 MG/DL (0.55-1.30); POTASSIUM 3.5 MMOL/L (3.5-5.1); SODIUM 143 MMOL/L (136-145)
[2018-10-18 07:53] LABS: PHOSPHORUS 3.7 MG/DL (2.5-4.9)
[2018-10-18 08:00] VITALS: BP 116/85
[2018-10-18] MEDS: Thiamine 100mg tab ORAL SCH (08:49)
[2018-10-18] MEDS: Docusate 100mg cap ORAL SCH (08:49)
--- NOTE | 2018-10-18 09:00 | NUR ---
NURSE NOTES: Dr. Lozano made aware patient requesting to sign AMA, HR elevated last night to 140s-150s, AAOX3, 3 dose of Ativan given for anxiety and auditory hallucinations. Per Dr. Lozano, if patient having hallucination, patient needs psych clearance before he can leave. Paged Dr. Blancas, regarding patient requesting to sing AMA. Per Dr. Blancas, patient has capacity to sign AMA but give patient Ativan and convince him stay. Order noted, entered, carried out. Dr. Blancas made aware paitnet at this time back on cardiac nurse specialist, prn Librium 25mg given once and stated he will stay for a while.
[2018-10-18 12:00] VITALS: BP 123/85
--- NOTE | 2018-10-18 12:51 | Surgery Progress Note ---
Surgery Progress Note Subjective Additional Comments states doing better today feels better with regular diet no n/v tremor improved Objective Last 24 Hour Vital Signs Date Time Temp Pulse Resp B/P (MAP) Pulse Ox O2 Delivery O2 Flow Rate FiO2 10/18/18 12:00 97.6 82 18 123/85 (98) 100 10/18/18 09:00 Room Air 10/18/18 08:00 101 10/18/18 08:00 98.2 105 18 116/85 (95) 99 10/18/18 04:00 97.6 114 20 125/86 (99) 98 10/18/18 04:00 86 10/18/18 00:00 141 10/18/18 00:00 98.3 99 20 122/75 (91) 98 10/17/18 21:00 Room Air 10/17/18 20:00 98.4 98 20 131/85 (100) 98 10/17/18 20:00 97 10/17/18 16:00 98.2 83 20 117/79 (92) 98 10/17/18 16:00 88 I&O Intake and Output 10/17/18 10/18/18 18:59 06:59 Intake Total 240 ml 100 ml Balance 240 ml 100 ml Intake Oral 240 ml 100 ml # Voids 3 4 Cardiovascular: RSR Respiratory: clear Abdomen: soft, flat, non-tender, present bowel sounds, non-distended Extremities: no edema, no tenderness, no cyanosis Laboratory Tests Test 10/18/18 06:34 White Blood Count Pending Red Blood Count 3.81 M/UL (4.70-6.10) L Hemoglobin 11.9 G/DL (14.2-18.0) L Hematocrit 34.3 % (42.0-52.0) L Mean Corpuscular Volume 90 FL (80-99) Mean Corpuscular Hemoglobin 31.2 PG (27.0-31.0) H Mean Corpuscular Hemoglobin Concent 34.6 G/DL (32.0-36.0) Red Cell Distribution Width 10.7 % (11.6-14.8) L Platelet Count 84 K/UL (150-450) #L Mean Platelet Volume 7.5 FL (6.5-10.1) Neutrophils (%) (Auto) % (45.0-75.0) Lymphocytes (%) (Auto) % (20.0-45.0) Monocytes (%) (Auto) % (1.0-10.0) Eosinophils (%) (Auto) % (0.0-3.0) Basophils (%) (Auto) % (0.0-2.0) Differential Total Cells Counted 100 Neutrophils % (Manual) 44 % (45-75) L Lymphocytes % (Manual) 43 % (20-45) Monocytes % (Manual) 13 % (1-10) H Eosinophils % (Manual) 0 % (0-3) Basophils % (Manual) 0 % (0-2) Band Neutrophils 0 % (0-8) Lymphocytes Pending Platelet Estimate Decreased L Platelet Morphology Normal Hypochromasia 1+ Sodium Level 143 MMOL/L (136-145) Potassium Level 3.5 MMOL/L (3.5-5.1) Chloride Level 105 MMOL/L (98-107) Carbon Dioxide Level 29 MMOL/L (21-32) Anion Gap 10 mmol/L (5-15) Blood Urea Nitrogen 7 mg/dL (7-18) Creatinine 0.7 MG/DL (0.55-1.30) Estimat Glomerular Filtration Rate > 60 mL/min (>60) Glucose Level 124 MG/DL (74-106) H Calcium Level 9.2 MG/DL (8.5-10.1) Phosphorus Level 3.7 MG/DL (2.5-4.9) Magnesium Level 2.0 MG/DL (1.8-2.4) Total Bilirubin 0.7 MG/DL (0.2-1.0) Aspartate Amino Transf (AST/SGOT) 73 U/L (15-37) H Alanine Aminotransferase (ALT/SGPT) 75 U/L (12-78) Alkaline Phosphatase 92 U/L (46-116) Total Protein 6.9 G/DL (6.4-8.2) Albumin 3.9 G/DL (3.4-5.0) Globulin 3.0 g/dL Albumin/Globulin Ratio 1.3 (1.0-2.7) Amylase Level 46 U/L (25-115) Lipase 343 U/L (73-393) Percent CD3 Cells Pending Absolute CD3 Count Pending Percent CD4 Cells Pending Absolute CD4 Count Pending T-Lymphocyte CD4/CD8 Ratio Pending Percent CD8 Cells Pending Absolute CD8 Count Pending Plan Problems: (1) Alcohol withdrawal (2) Acute alcohol intoxication (3) Abdominal pain Assessment & Plan: 33-year-old male with cramping abdominal pain generalized intermittent and noted most when he is not drinking. Patient currently in withdrawal and noted to have pancreatitis. Labs improving. Patient under current treatment for withdrawal. Likely etiology of pancreatitis is EtOH abuse. Abdominal exam is fairly benign and unlikely to have other abdominal etiology at this time. Continue with current care and management. No acute surgical intervention recommended. slowly improving withdrawal improved We will follow with examinations and recommendations. over all much improved d/c planning Thank you for allowing me to participate in patient's care will follow along with you (4) Pancreatitis Cameron Salcedo Oct 18, 2018 12:51
--- NOTE | 2018-10-18 13:28 | NUR ---
NURSE NOTES: Received phone call from lab for verification regarding viral load HIV when HIV PCR already sent yesterday 10/17/18. Paged Dr. Lozano to verify, per Dr. Lozano no needed of viral load HIV. Order noted, entered, and carried out. Will continue to monitor.
--- NOTE | 2018-10-18 13:30 | NUR ---
NURSE NOTES: Patient refused to be on laboratory monitor. Explained risks and disadvantages.
--- NOTE | 2018-10-18 15:30 | Infectious Diseases Prog Note ---
Assessment/Plan Assessment/Plan Full consult to follow: A) 1) HIV - off anti-retroviral Triumeq for at least 2 weeks (medication not available at [facility]) 2) etoh withdrawal and pancreatitis 3) allergies - pcn P) 1) await cd4 and viral load 2) patient cannot get Triumeq from home 3) continue tx per primary and consultants 4) d/w pharmacy if can get separate Triumeq components Subjective Constitutional: Denies: fever HEENT: Denies: congestion Respiratory: Denies: shortness of breath Cardiovascular: Denies: chest pain Gastrointestinal/Abdominal: Reports: other - less abdominal pain; Denies: nausea, vomiting Allergies: Coded Allergies: PENICILLINS (Verified Allergy, Unknown, 10/14/18) Objective Vital Signs Last 24 Hour Vital Signs Date Time Temp Pulse Resp B/P (MAP) Pulse Ox O2 Delivery O2 Flow Rate FiO2 10/18/18 12:00 97.6 82 18 123/85 (98) 100 10/18/18 12:00 112 10/18/18 09:00 Room Air 10/18/18 08:00 101 10/18/18 08:00 98.2 105 18 116/85 (95) 99 10/18/18 04:00 97.6 114 20 125/86 (99) 98 10/18/18 04:00 86 10/18/18 00:00 141 10/18/18 00:00 98.3 99 20 122/75 (91) 98 10/17/18 21:00 Room Air 10/17/18 20:00 98.4 98 20 131/85 (100) 98 10/17/18 20:00 97 10/17/18 16:00 98.2 83 20 117/79 (92) 98 10/17/18 16:00 88 Height (Feet): 5 Height (Inches): 9.00 Weight (Pounds): 122 General Appearance: no acute distress HEENT: normocephalic, atraumatic, anicteric, mucous membranes moist Respiratory/Chest: chest wall non-tender, lungs clear, normal breath sounds, no respiratory distress Cardiovascular: normal rate, regular rhythm Abdomen: normal bowel sounds, soft, non tender, no organomegaly Laboratory Tests Test 10/18/18 06:34 White Blood Count Pending Red Blood Count 3.81 M/UL (4.70-6.10) L Hemoglobin 11.9 G/DL (14.2-18.0) L Hematocrit 34.3 % (42.0-52.0) L Mean Corpuscular Volume 90 FL (80-99) Mean Corpuscular Hemoglobin 31.2 PG (27.0-31.0) H Mean Corpuscular Hemoglobin Concent 34.6 G/DL (32.0-36.0) Red Cell Distribution Width 10.7 % (11.6-14.8) L Platelet Count 84 K/UL (150-450) #L Mean Platelet Volume 7.5 FL (6.5-10.1) Neutrophils (%) (Auto) % (45.0-75.0) Lymphocytes (%) (Auto) % (20.0-45.0) Monocytes (%) (Auto) % (1.0-10.0) Eosinophils (%) (Auto) % (0.0-3.0) Basophils (%) (Auto) % (0.0-2.0) Differential Total Cells Counted 100 Neutrophils % (Manual) 44 % (45-75) L Lymphocytes % (Manual) 43 % (20-45) Monocytes % (Manual) 13 % (1-10) H Eosinophils % (Manual) 0 % (0-3) Basophils % (Manual) 0 % (0-2) Band Neutrophils 0 % (0-8) Lymphocytes Pending Platelet Estimate Decreased L Platelet Morphology Normal Hypochromasia 1+ Sodium Level 143 MMOL/L (136-145) Potassium Level 3.5 MMOL/L (3.5-5.1) Chloride Level 105 MMOL/L (98-107) Carbon Dioxide Level 29 MMOL/L (21-32) Anion Gap 10 mmol/L (5-15) Blood Urea Nitrogen 7 mg/dL (7-18) Creatinine 0.7 MG/DL (0.55-1.30) Estimat Glomerular Filtration Rate > 60 mL/min (>60) Glucose Level 124 MG/DL (74-106) H Calcium Level 9.2 MG/DL (8.5-10.1) Phosphorus Level 3.7 MG/DL (2.5-4.9) Magnesium Level 2.0 MG/DL (1.8-2.4) Total Bilirubin 0.7 MG/DL (0.2-1.0) Aspartate Amino Transf (AST/SGOT) 73 U/L (15-37) H Alanine Aminotransferase (ALT/SGPT) 75 U/L (12-78) Alkaline Phosphatase 92 U/L (46-116) Total Protein 6.9 G/DL (6.4-8.2) Albumin 3.9 G/DL (3.4-5.0) Globulin 3.0 g/dL Albumin/Globulin Ratio 1.3 (1.0-2.7) Amylase Level 46 U/L (25-115) Lipase 343 U/L (73-393) Percent CD3 Cells Pending Absolute CD3 Count Pending Percent CD4 Cells Pending Absolute CD4 Count Pending T-Lymphocyte CD4/CD8 Ratio Pending Percent CD8 Cells Pending Absolute CD8 Count Pending Current Medications Medications (Trade) Dose Ordered Sig/Lala Route PRN Reason Start Time Stop Time Status Last Admin Dose Admin Acetaminophen (Tylenol) 650 mg Q4H PRN ORAL Mild Pain (Pain Scale 1-3) 10/14/18 19:00 11/13/18 18:59 Bisacodyl (Dulcolax) 10 mg HSPRN PRN RECTAL Constipation 10/14/18 19:00 11/13/18 18:59 Chlordiazepoxide (Librium) 25 mg Q6H PRN ORAL Agitation 10/17/18 08:15 10/24/18 08:14 10/18/18 08:48 Chlordiazepoxide (Librium) 50 mg Q6HR ORAL 10/15/18 12:00 10/22/18 11:59 10/18/18 11:35 Dextrose (Dextrose 50%) 25 ml Q30M PRN IV Hypoglycemia 10/14/18 19:00 11/13/18 18:59 Dextrose (Dextrose 50%) 50 ml Q30M PRN IV Hypoglycemia 10/14/18 19:00 11/13/18 18:59 Diphenhydramine HCl (Benadryl) 25 mg Q6H PRN ORAL Itching/Pruritis 10/14/18 19:00 11/13/18 18:59 Docusate Sodium (Colace) 100 mg EVERY 12 HOURS ORAL 10/14/18 21:00 11/13/18 20:59 10/18/18 08:49 Famotidine (Pepcid) 40 mg DAILY ORAL 10/15/18 09:00 11/14/18 08:59 10/18/18 08:49 Hydromorphone HCl (Dilaudid) 0.5 mg Q6H PRN IVP moderate pain 10/14/18 21:15 10/21/18 21:14 10/15/18 21:56 Hydromorphone HCl (Dilaudid) 1 mg Q6H PRN IVP SEVERE PAIN 10/14/18 21:15 10/21/18 21:14 10/17/18 21:45 Lorazepam (Ativan 2mg/ml 1ml) 2 mg Q3H PRN IV ALCOHOL WITHDRAWAL 10/15/18 08:00 10/22/18 07:59 10/18/18 14:41 Ondansetron HCl (Zofran) 4 mg Q6H PRN IVP Nausea & Vomiting 10/14/18 19:00 11/13/18 18:59 10/17/18 19:43 Oxycodone HCl (Roxicodone) 5 mg Q4H PRN ORAL Breakthrough Pain 10/14/18 19:00 10/21/18 18:59 10/18/18 00:50 Risperidone (RisperDAL) 1 mg BEDTIME ORAL 10/17/18 21:00 11/16/18 20:59 10/17/18 20:33 Thiamine HCl (Vitamin B1) 100 mg DAILY ORAL 10/17/18 09:00 11/16/18 08:59 10/18/18 08:49 Delia Tellez MD Oct 18, 2018 15:30
--- NOTE | 2018-10-18 15:34 | General Progress Note ---
Assessment/Plan Status: unchanged Assessment/Plan: 33 year old male admitted to [facility] w/d and pancreatitis. #ETOh withdrawal - improving -s/p banana bag -D/C D5 1/2NS with KCL -CIWA protocol - decreasing - 8 today -Ativan 2mg IV PRN if CIWA >8 -diet started - tolerating -Cont librium - -monitor electrolytes -fall precautions -psych consult appreciated #Hypokalemia -repleted #Pancytopenia likely 2/2 HIV -hematology consult appreciated -CTM #Acute pancreatitis -ctm -pain control -GI consult appreciated -Surgery consult appreciated -lipase however ctrending downlinically improved #HIV on haart --pending CD4 and viral load -ID consult appreciated - can restart home HAART meds on DC -states prev CD4 >500 - no ppx needed Code: Title I Assistant of note may not reflect time of encounter Subjective Date patient seen: Oct 18, 2018 Allergies: Coded Allergies: PENICILLINS (Verified Allergy, Unknown, 10/14/18) Subjective No acute overnight events, symptoms improving, states abdominal pain improved, has no other complaints, hx of HIV on HAART, still requiring ativan for CIWA >8 , tolerating diet Objective Last 24 Hour Vital Signs Date Time Temp Pulse Resp B/P (MAP) Pulse Ox O2 Delivery O2 Flow Rate FiO2 10/18/18 12:00 97.6 82 18 123/85 (98) 100 10/18/18 12:00 112 10/18/18 09:00 Room Air 10/18/18 08:00 101 10/18/18 08:00 98.2 105 18 116/85 (95) 99 10/18/18 04:00 97.6 114 20 125/86 (99) 98 10/18/18 04:00 86 10/18/18 00:00 141 10/18/18 00:00 98.3 99 20 122/75 (91) 98 10/17/18 21:00 Room Air 10/17/18 20:00 98.4 98 20 131/85 (100) 98 10/17/18 20:00 97 10/17/18 16:00 98.2 83 20 117/79 (92) 98 10/17/18 16:00 88 Intake and Output 10/17/18 10/18/18 18:59 06:59 Intake Total 240 ml 100 ml Balance 240 ml 100 ml Intake Oral 240 ml 100 ml # Voids 3 4 Laboratory Tests 10/18/18 06:34: White Blood Count [Pending], Red Blood Count 3.81L, Hemoglobin 11.9L, Hematocrit 34.3L, Mean Corpuscular Volume 90, Mean Corpuscular Hemoglobin 31.2H , Mean Corpuscular Hemoglobin Concent 34.6, Red Cell Distribution Width 10.7L, Platelet Count 84#L, Mean Platelet Volume 7.5, Neutrophils (%) (Auto) , Lymphocytes (%) (Auto) , Monocytes (%) (Auto) , Eosinophils (%) (Auto) , Basophils (%) (Auto) , Differential Total Cells Counted 100, Neutrophils % ( Manual) 44L, Lymphocytes % (Manual) 43, Monocytes % (Manual) 13H, Eosinophils % (Manual) 0, Basophils % (Manual) 0, Band Neutrophils 0, Lymphocytes [Pending], Platelet Estimate DecreasedL, Platelet Morphology Normal, Hypochromasia 1+, Sodium Level 143, Potassium Level 3.5, Chloride Level 105, Carbon Dioxide Level 29, Anion Gap 10, Blood Urea Nitrogen 7, Creatinine 0.7, Estimat Glomerular Filtration Rate > 60, Glucose Level 124H, Calcium Level 9.2, Phosphorus Level 3.7, Magnesium Level 2.0, Total Bilirubin 0.7, Aspartate Amino Transf (AST/SGOT ) 73H, Alanine Aminotransferase (ALT/SGPT) 75, Alkaline Phosphatase 92, Total Protein 6.9, Albumin 3.9, Globulin 3.0, Albumin/Globulin Ratio 1.3, Amylase Level 46, Lipase 343, Percent CD3 Cells [Pending], Absolute CD3 Count [Pending] , Percent CD4 Cells [Pending], Absolute CD4 Count [Pending], T-Lymphocyte CD4/ CD8 Ratio [Pending], Percent CD8 Cells [Pending], Absolute CD8 Count [Pending] Height (Feet): 5 Height (Inches): 9.00 Weight (Pounds): 122 Objective General appearance: alert, cooperative, no distress, appears stated age Head: Normocephalic, without obvious abnormality, atraumatic Eyes: conjunctivae/corneas clear. PERRL, EOM's intact. Fundi benign Throat: Lips, mucosa, and tongue normal. Teeth and gums normal Neck: supple, symmetrical, trachea midline, no adenopathy, thyroid: not enlarged, symmetric, no tenderness/mass/nodules, no carotid bruit and no JVD Lungs: clear to auscultation bilaterally Heart: regular rate and rhythm, S1, S2 normal, no murmur, click, rub or gallop Abdomen: soft, tender to palpation. Bowel sounds normal. No masses, no organomegaly Extremities: extremities normal, atraumatic, no cyanosis or edema Pulses: 2+ and symmetric Skin: Skin color, texture, turgor normal. No rashes or lesions Neurologic: Grossly normal Mariajose Lozano MD Oct 18, 2018 15:34
[2018-10-18 16:00] VITALS: BP 133/86
--- NOTE | 2018-10-18 16:48 | Neurology Progress Note ---
Interim History Interim History ROS Limited/Unobtainable: Yes Interim History improving, alert oriented Objective Physical Exam Last Vital Signs Date Time Temp Pulse Resp B/P (MAP) Pulse Ox O2 Delivery O2 Flow Rate FiO2 10/18/18 16:00 98.3 109 18 133/86 (102) 100 10/18/18 09:00 Room Air Laboratory Tests Test 10/18/18 06:34 White Blood Count Pending Red Blood Count 3.81 M/UL (4.70-6.10) L Hemoglobin 11.9 G/DL (14.2-18.0) L Hematocrit 34.3 % (42.0-52.0) L Mean Corpuscular Volume 90 FL (80-99) Mean Corpuscular Hemoglobin 31.2 PG (27.0-31.0) H Mean Corpuscular Hemoglobin Concent 34.6 G/DL (32.0-36.0) Red Cell Distribution Width 10.7 % (11.6-14.8) L Platelet Count 84 K/UL (150-450) #L Mean Platelet Volume 7.5 FL (6.5-10.1) Neutrophils (%) (Auto) % (45.0-75.0) Lymphocytes (%) (Auto) % (20.0-45.0) Monocytes (%) (Auto) % (1.0-10.0) Eosinophils (%) (Auto) % (0.0-3.0) Basophils (%) (Auto) % (0.0-2.0) Differential Total Cells Counted 100 Neutrophils % (Manual) 44 % (45-75) L Lymphocytes % (Manual) 43 % (20-45) Monocytes % (Manual) 13 % (1-10) H Eosinophils % (Manual) 0 % (0-3) Basophils % (Manual) 0 % (0-2) Band Neutrophils 0 % (0-8) Lymphocytes Pending Platelet Estimate Decreased L Platelet Morphology Normal Hypochromasia 1+ Sodium Level 143 MMOL/L (136-145) Potassium Level 3.5 MMOL/L (3.5-5.1) Chloride Level 105 MMOL/L (98-107) Carbon Dioxide Level 29 MMOL/L (21-32) Anion Gap 10 mmol/L (5-15) Blood Urea Nitrogen 7 mg/dL (7-18) Creatinine 0.7 MG/DL (0.55-1.30) Estimat Glomerular Filtration Rate > 60 mL/min (>60) Glucose Level 124 MG/DL (74-106) H Calcium Level 9.2 MG/DL (8.5-10.1) Phosphorus Level 3.7 MG/DL (2.5-4.9) Magnesium Level 2.0 MG/DL (1.8-2.4) Total Bilirubin 0.7 MG/DL (0.2-1.0) Aspartate Amino Transf (AST/SGOT) 73 U/L (15-37) H Alanine Aminotransferase (ALT/SGPT) 75 U/L (12-78) Alkaline Phosphatase 92 U/L (46-116) Total Protein 6.9 G/DL (6.4-8.2) Albumin 3.9 G/DL (3.4-5.0) Globulin 3.0 g/dL Albumin/Globulin Ratio 1.3 (1.0-2.7) Amylase Level 46 U/L (25-115) Lipase 343 U/L (73-393) Percent CD3 Cells Pending Absolute CD3 Count Pending Percent CD4 Cells Pending Absolute CD4 Count Pending T-Lymphocyte CD4/CD8 Ratio Pending Percent CD8 Cells Pending Absolute CD8 Count Pending Head: normocophalic Neck: no rigidity EENT: benign Neurologic Exam Mental Status: other Objective alert, oriented x 2, mild postural tremors ambulating Impression/Recommendations Problems: (1) Alcohol withdrawal (2) Acute alcohol intoxication Status: unchanged Diagnostic Impression acute toxic encephalopathy ct brain wo hemorrhage monitor for withdrawal Yonathan Agrawal MD Oct 18, 2018 16:48
--- NOTE | 2018-10-18 16:51 | NUR ---
NURSE NOTES: Dr. Blancas and Dr. Lozano made aware patient left AMA. Patient left with all belongings, IV removed, ID band removed, cardiac exercise specialist returned to air sampling and monitoring. Per patient, will waiting for friend to forklift picker at the [facility].
--- NOTE | 2018-10-18 16:52 | NUR ---
NURSE NOTES: Called [facility] [phone] for the status, not answering the phone, unable to leave voice mail.
--- NOTE | 2018-10-18 16:56 | NUR ---
Patient very Anxious, awake alert, oriented x 4, ambulating with steady gait. aware of situation. he wants to leave. attempted to explain to patient his doctor has not yet cleared him for discharge. Patient stated "but i can leave against medical advice, I know my rights". Patient stated his friend will meet him at [facility]. Pt. signed AMA form. RN notified .
--- NOTE | 2018-10-19 01:45 | Consultation ---
DATE OF CONSULTATION: 10/18/2018 INFECTIOUS DISEASES CONSULTATION CONSULTING PHYSICIAN: Delia Tellez M.D. ATTENDING PHYSICIAN: Carly Little M.D. REFERRING PHYSICIAN: Dr. Mariajose Graham. REASON FOR CONSULTATION: History of HIV CHIEF COMPLAINT: The patient's chief complaint coming in to the hospital is acute pancreatitis, shaking, abdominal pain, ETOH abuse, binge drinking. HISTORY OF PRESENT ILLNESS: The patient is a 33-year-old male who has comes in to [facility] with abdominal pain, nausea, vomiting, binge drinking, ETOH abuse, and pancreatitis. The patient's lipase was 673. The patient has history of HIV. The patient has been off anti-retroviral therapy, . He has been off at least a couple weeks. The patient said his T-cell count is over 500, viral load undetectable on medication. Medications Triumeq, which is a combination abacavir, lamivudine, dolutegravir or Tivicay . Infectious Diseases consultation requested for further management of his HIV. Case discussed with Dr. Mariajose Graham. The patient is being followed by GI and Surgery. REVIEW OF SYSTEMS: CONSTITUTIONAL: He has no fever or chills and shaking. No thrush, dysphagia, or neck stiffness. No fever or chills. GASTROINTESTINAL: He had nausea, vomiting, abdominal pain. No diarrhea. GENITOURINARY: No dysuria, frequency. PULMONARY: No congestion or shortness of breath. SKIN: No rash. EXTREMITIES: No extremity pain. NEUROLOGIC: No seizures. PAST MEDICAL HISTORY: The patient's past medical history includes history of the following. The patient has past medical history of HIV. He states on Triumeq, his T-cell count is over 500 and viral load undetectable. No mention of history of AIDS but does have history of HIV. He also has history of ETOH abuse. As discussed, he comes in with pancreatitis. No history of diabetes or hypertension. ALLERGIES: To penicillin antibiotics. SOCIAL HISTORY: Positive for ETOH abuse. No IV drug use or smoking mention. FAMILY HISTORY: Noncontributory. MEDICATIONS: In the outpatient setting, the patient is on Triumeq, which is dolutegravir, abacavir, 3TC. Currently on reviewing the MAR, he is on Librium, vitamin B1 or thiamine, risperidone, Pepcid, lorazepam, hydromorphone, docusate, acetaminophen bisacodyl, Zofran, diphenhydramine, oxycodone. PHYSICAL EXAMINATION: VITAL SIGNS: Temperature 97.6, pulse 82, respiratory rate 18, blood pressure 122/65, O2 saturation 100%. GENERAL: Alert and responsive. No acute distress. HEAD AND NECK:: Oral exam, no thrush. Eye exam, no icterus. Neck is supple. No JVD. Normocephalic. HEART: Regular. No obvious gallop or murmur. ABDOMEN: Soft. Positive bowel sounds. Nontender. LUNGS: Clear bilaterally. No rhonchi or rales. SKIN: No rash. MUSCULOSKELETAL: No effusions. Legs are without cellulitis. PERIPHERAL VASCULAR: No cyanosis. GENITOURINARY: No Nogueira. LINES: Line sites without phlebitis. NEUROLOGIC: Intact. Nonfocal. LABORATORY AND DIAGNOSTIC DATA: Creatinine 0.7. Lipase 673. White count 3.0, hemoglobin 11.9. Imaging, abdominal ultrasound showed fatty liver. Chest x-ray, no acute process. CD4 viral load has been ordered. ASSESSMENT AND PLAN: 1. The patient has history of HIV. The patient has been on Triumeq in the past with success including an undetectable viral load and CD4 greater 500 per the patient's history. Currently, he has Triumeq and has been off at least couple weeks. We will check CD4 and viral load to follow up on his HIV status, immune status, and viral load status. I discussed with pharmacy here and the pill itself Triumeq is not available and we will try and see if he can get 3TC or lamivudine, abacavir, dolutegravir as separate components. I discussed the patient at length and told him once he has been discharged from the hospital resume his Triumeq, which he stated he will do and follow up with HIV physician. Await viral load CD4. 2. Acute pancreatitis. 3. ETOH abuse. 4. Binge drinking. 5. No history diabetes or hypertension. 6. Pancreatitis management per primary, GI, Surgery. 7. Allergy to penicillin. 8. Social history is positive for ETOH. 9. Family history is noncontributory. 10. MAR was noted. 11. Case discussed with RN. 12. Case discussed with the patient. 13. Case discussed with Dr. Mariajose Graham. Delia Tellez M.D. DR: Laurie JOB#: [id number] CC:
--- NOTE | 2018-10-22 09:23 | Discharge Summary ---
Discharge Summary Discharge Summary _ DATE OF ADMISSION: 10/14/2018 DATE OF DISCHARGE: 10/18/2018 Patient left AGAINST MEDICAL ADVICE REASON FOR ADMISSION: 33 years old male with past medical history of ETOH abuse, HIV disease, presented with nausea , abdominal pain, shaking and unsteady gait. Patient reported binging drinking ; last drink was in the morning prior to presentation. Patient reported abdominal pain similar to previous episodes. Patient reported that after he stops drinking alcohol, he usually feels very anxious and start to shake. Patient denied substance abuse. He denied vomiting. He denied chest pain or shortness of breath. No fevers , no chills. Upon evaluation in emergency department patient was tachycardic with heart rate 130, blood pressure was elevated 155/95. Laboratory work-up revealed platelets count 86. Stable electrolytes. Magnesium 1.9. Glucose 176. AST 218 , ALT 140 . Serum alcohol 473. Salicylate and Tylenol levels negative. Urinalysis revealed +3 ketones , +2 protein, +5 blood, no evidence of UTI. Urine toxicology screen was negative. Chest x-ray revealed no acute cardiopulmonary pathology. CT of the head demonstrated no acute intracranial pathology. Patient subsequently admitted to telemetry floor for further management. CONSULTANTS: neurologist Dr. Waite ID specialist GI specialist Dr. Rodgers nursing home social worker/oncologist Dr. Allen surgery Dr. Salcedo psychiatrist [facility] COURSE: Patient admitted to telemetry floor. Patient started on the IV banana bag. CIWA protocol implemented. Ativan was on board as needed. Patient initially kept n.p.o. Electrolytes were closely monitored. Fall precaution maintained. Pain management was addressed as needed. GI specialist and surgeon followed. LFT and lipase were trending. Abdominal ultrasound revealed fatty liver, negative exam otherwise. P As patient became more awake and alert , he started on clear liquid diet. Antiemetic were on board as needed. Patient started on H2 antonio. Prior to signing AMA lipase down to 343, AST from 218 down to 73, ALT from 140 down to 75. Surgeon followed. Per surgeon , patient unlikely to have another abdominal etiology at this time except due to alcohol intoxication and pancreatitis with etiology of pancreatitis likely to be ETOH abuse. No acute surgical intervention was recommended. Patient was symptomatically improving. Physical exam was benign. Labs were improving. Withdrawal symptoms improved. ID specialist followed. Patient was off antiretroviral Triumeq for at least 2 weeks . Medication was not available at [facility] pharmacy as well. CD4 count and viral load were ordered. Follow-up as outpatient with the HIV provider. Neurologist followed . Per neurologist acute toxic encephalopathy was secondary to acute alcohol intoxication, and was improving. Neurologist recommended continue [facility] protocol to monitor for withdrawal. As mentioned above, CT head revealed no evidence of bleeding. Engagement Quality Consultant seen patient for pancytopenia . Per nursing home social worker , pancytopenia was likely due to ETOH abuse and HIV disease. Hepatitis panel was negative. Sickle cell screen negative. Counts were closely monitored. Upon signing AGAINST MEDICAL ADVICE WBC 3, hemoglobin 11.9, platelet count 84. Patient was counseled on alcohol cessation. Per nutritional assessment, patient appeared to be at high risk for malnutrition. Nutritional supplements implemented in plan of care as per travel registered nurse oncology recommendation. Renal parameters and electrolytes were closely monitored. Potassium was repleted. Patient decided to leave AGAINST MEDICAL ADVICE At this time he was fully awake alert,, oriented x4 . Patient was attempted to explain by the nursing staff that doctor did not clear him yet for discharge, but patient stated he wants to leave AGAINST MEDICAL ADVICE. The risks and consequences of signing AGAINST MEDICAL ADVICE were discussed with patient in detail. Patient verbalized understanding, nevertheless signed AMA form and left. FINAL DIAGNOSES: Acute alcohol intoxication Acute toxic encephalopathy , secondary to acute alcohol intoxication Acute alcohol withdrawal Acute pancreatitis Alcoholic hepatitis HIV disease Pancytopenia likely due to ETOH and HIV Protein calorie malnutrition Hypokalemia I have been assigned to dictate discharge summary for this account. I was not involved in the patient's management. Lorna Jain NP Oct 22, 2018 09:22
== END 2018-10-18 16:53 | disposition left against medical advice (07) | DRG 282 ==
LOC: EDBD 11:35 → EMR 12:06 → 2E 16:59 → EDBEDREQ 18:22 → 2E 10-18 03:37
DX: K85.20 Alcohol induced acute pancreatitis without necrosis or infection (principal); G92 Toxic encephalopathy; D61.818 Other pancytopenia; B20 Human immunodeficiency virus [HIV] disease; E46 Unspecified protein-calorie malnutrition; F10.239 Alcohol dependence with withdrawal, unspecified; F10.229 Alcohol dependence with intoxication, unspecified; K70.10 Alcoholic hepatitis without ascites; E87.6 Hypokalemia; Z68.1 Body mass index [BMI] 19.9 or less, adult; Z88.0 Allergy status to penicillin; Z91.14 Patient's other noncompliance with medication regimen; K76.0 Fatty (change of) liver, not elsewhere classified
CPT/HCPCS: 36415; 70450; 71045; 76700; 80053; 80061; 80307; 80329; 81003; 82150; 82248; 82550; 82607; 82728; 82746; 83540; 83550; 83615; 83690; 83735; 84100; 85007; 85025; 85044; 85060; 85384; 85610; 85660; 86360; 86689; 86703; 86705; 86709; 86803; 87340; 87536; 93005; 96361; 96365; 96375; 99285; J2405; J8499